=== PATIENT | female | born 1955 | race Two or more races ===

== ENCOUNTER 2020-09-02 09:59 | Outpatient (REF) | payer OTHER, SELFPAY ==
[2020-09-02 10:42] LABS: MANUAL DIFF FLAG NO
[2020-09-02 10:53] LABS: Basophils Absolute Auto 0.1 X10*3/uL (0.0-0.2); Basophils Percent Auto 1.1 % (0-2); Eosinophils Absolute Auto 0.3 X10*3/uL (0.0-0.4); Eosinophils Percent Auto 4.7 % (0-4); Hematocrit 35.1 % (37-47); Hemoglobin 11.2 g/dl (12.0-16.0); Imm Gran Abs Auto 0.01 X10*3/uL (0.00-0.03); Imm Gran Pct Auto 0.2 % (0.0-0.4); Lymphocytes Absolute Auto 1.6 X10*3/uL (1.2-4.9); Lymphocytes Percent Auto 26.4 % (20-40); Mean Corpuscular HGB Conc 31.9 g/dl (31.0-35.0); Mean Corpuscular Hemoglobin 25.9 pg (27.0-33.0); Mean Corpuscular Volume 81.1 fL (80-98); Monocytes Absolute Auto 0.5 X10*3/uL (0.1-1.2); Monocytes Percent Auto 7.5 % (2-11); Neutrophils Absolute Auto 3.7 X10*3/uL (2.0-8.3); Neutrophils Percent Auto 60.1 % (45-73); Platelet Count 267 X10*3/uL (160-400); Red Blood Count 4.33 X10*6/uL (4.20-5.50); Red Cell Distribution Width 13.5 % (11.0-16.0); White Blood Count 6.1 X10*3/uL (4.8-10.8)
[2020-09-02 11:01] LABS: Estimated Average Glucose 114 mg/dL; Hemoglobin A1c % 5.6 %
[2020-09-02 11:10] LABS: Alanine Aminotransferase 14 U/L (0-31); Albumin Level 4.1 g/dL (3.5-5.0); Alkaline Phosphatase 89 U/L (39-117); Anion Gap 10 (12-20); Aspartate Amino Transferase 18 U/L (5-31); Bilirubin Total 0.4 mg/dL (0.0-1.0); Blood Urea Nitrogen 17 mg/dL (9-16); Calcium 9.1 mg/dL (8.4-10.2); Carbon Dioxide 27 mmol/L (22-29); Chloride 100 mmol/L (96-108); Cholesterol 187 mg/dL; Estimated Glomerular Filt Rate 50; Glucose Fasting 94 mg/dL (60-99); HDL Cholesterol 65 mg/dL; LDL Cholesterol Calculated 100 mg/dl; Potassium 4.3 mmol/l (3.3-5.1); Sodium 133 mmol/L (135-145); Total Protein 7.2 g/dL (6.5-8.0); Triglycerides 114 mg/dL
[2020-09-02 12:28] LABS: Creatinine Urine 93.83 mg/dL; Microalbum/Creatinine Ratio Ur 5.3 ug/mg cr
== END 2020-09-02 10:00 | disposition home or self-care (01) ==
LOC: HO.LAB 09:59
PROVIDERS: PCP Internal Medicine; Visit Provider Internal Medicine
DX: E11.22 Type 2 diabetes mellitus with diabetic chronic kidney disease (principal); I12.9 Hypertensive chronic kidney disease with stage 1 through stage 4 chronic kidney disease, or unspecified chronic kidney disease; N18.30 Chronic kidney disease, stage 3 unspecified; E78.00 Pure hypercholesterolemia, unspecified; N30.00 Acute cystitis without hematuria
CPT/HCPCS: 36415; 80053; 80061; 82043; 83036; 85025

== ENCOUNTER 2021-01-29 12:37 | Outpatient (REF) | payer OTHER, SELFPAY ==
[2021-01-29 13:04] LABS: MANUAL DIFF FLAG NO
[2021-01-29 13:09] LABS: Basophils Absolute Auto 0.1 X10*3/uL (0.0-0.2); Basophils Percent Auto 1.2 % (0-2); Eosinophils Absolute Auto 0.2 X10*3/uL (0.0-0.4); Eosinophils Percent Auto 3.5 % (0-4); Hematocrit 36.7 % (37-47); Hemoglobin 11.6 g/dl (12.0-16.0); Imm Gran Abs Auto 0.02 X10*3/uL (0.00-0.03); Imm Gran Pct Auto 0.3 % (0.0-0.4); Lymphocytes Absolute Auto 1.7 X10*3/uL (1.2-4.9); Lymphocytes Percent Auto 25.3 % (20-40); Mean Corpuscular HGB Conc 31.6 g/dl (31.0-35.0); Mean Corpuscular Hemoglobin 26.1 pg (27.0-33.0); Mean Corpuscular Volume 82.7 fL (80-98); Mean Platelet Volume 10.4 fL (9.4-12.3); Monocytes Absolute Auto 0.6 X10*3/uL (0.1-1.2); Monocytes Percent Auto 8.1 % (2-11); Neutrophils Absolute Auto 4.2 X10*3/uL (2.0-8.3); Neutrophils Percent Auto 61.6 % (45-73); Platelet Count 325 X10*3/uL (160-400); Red Blood Count 4.44 X10*6/uL (4.20-5.50); Red Cell Distribution Width 13.3 % (11.0-16.0); White Blood Count 6.8 X10*3/uL (4.8-10.8)
[2021-01-29 13:15] LABS: Estimated Average Glucose 126 mg/dL
[2021-01-29 13:30] LABS: Alanine Aminotransferase 8 U/L (0-31); Albumin Level 4.3 g/dL (3.5-5.0); Alkaline Phosphatase 94 U/L (39-117); Anion Gap 10 (12-20); Aspartate Amino Transferase 16 U/L (5-31); Bilirubin Total 0.3 mg/dL (0.0-1.0); Blood Urea Nitrogen 14 mg/dL (9-16); Calcium 9.2 mg/dL (8.4-10.2); Carbon Dioxide 32 mmol/L (22-29); Chloride 100 mmol/L (96-108); Estimated Glomerular Filt Rate 53; Glucose Random 135 mg/dL (60-115); Potassium 4.3 mmol/L (3.3-5.1); Sodium 138 mmol/L (135-145); Total Protein 7.7 g/dL (6.5-8.0)
== END 2021-01-29 12:38 | disposition home or self-care (01) ==
LOC: HO.LAB 12:37
PROVIDERS: PCP Internal Medicine; Visit Provider Internal Medicine
DX: Z00.00 Encounter for general adult medical examination without abnormal findings (principal); E11.9 Type 2 diabetes mellitus without complications; E78.00 Pure hypercholesterolemia, unspecified; I10 Essential (primary) hypertension
CPT/HCPCS: 36415; 80053; 83036; 85025

== ENCOUNTER 2021-03-03 11:50 | Outpatient (REF) | payer OTHER, SELFPAY | END 2021-03-03 11:51 | disposition home or self-care (01) | LOC: HO.LAB 11:50 | PROVIDERS: Visit Provider Internal Medicine | DX: Z20.822 Contact with and (suspected) exposure to COVID-19 (principal) | CPT/HCPCS: C9803; U0003; U0005 ==

== ENCOUNTER 2021-03-16 15:36 | Outpatient (REF) | payer OTHER, SELFPAY | END 2021-03-16 15:37 | disposition home or self-care (01) | LOC: HO.LAB 15:36 | PROVIDERS: Visit Provider Internal Medicine | DX: Z20.822 Contact with and (suspected) exposure to COVID-19 (principal) | CPT/HCPCS: C9803; U0003; U0005 ==

== ENCOUNTER 2021-06-04 12:02 | Outpatient (REF) | payer OTHER, SELFPAY ==
[2021-06-04 13:21] LABS: Estimated Average Glucose 140 mg/dL; Hemoglobin A1C 151.2534 umol/L; Hemoglobin A1c % 6.5 %
[2021-06-04 13:31] LABS: Alanine Aminotransferase 13 U/L (0-31); Albumin Level 4.3 g/dL (3.5-5.0); Alkaline Phosphatase 96 U/L (39-117); Anion Gap 13 (12-20); Aspartate Amino Transferase 17 U/L (5-31); Bilirubin Total 0.4 mg/dL (0.0-1.0); Blood Urea Nitrogen 16 mg/dL (9-16); Calcium 9.6 mg/dL (8.4-10.2); Carbon Dioxide 27 mmol/L (22-29); Chloride 102 mmol/L (96-108); Estimated Glomerular Filt Rate 49; Glucose Random 110 mg/dL (60-115); Potassium 4.3 mmol/L (3.3-5.1); Sodium 138 mmol/L (135-145); Total Protein 7.8 g/dL (6.5-8.0)
== END 2021-06-04 12:03 | disposition home or self-care (01) ==
LOC: HO.LAB 12:02
PROVIDERS: PCP Internal Medicine; Visit Provider Internal Medicine
DX: E11.29 Type 2 diabetes mellitus with other diabetic kidney complication (principal); I10 Essential (primary) hypertension; E78.00 Pure hypercholesterolemia, unspecified; U07.1 COVID-19
CPT/HCPCS: 36415; 80053; 83036

== ENCOUNTER 2021-07-02 11:27 | Outpatient (REF) | payer OTHER, SELFPAY ==
--- NOTE | ~2021-07-02 | MM_ITS ---
EXAMINATION: MM SCREENING DIGITAL BREAST TOMOSYNTHESIS, BILATERAL CLINICAL INFORMATION: Screening. Asymptomatic. The lifetime risk of breast cancer based on the Tyrer-Cuzick Model is 6%. COMPARISON: Mammography: 10/10/2020, 11/16/2018, 10/24/2017 TECHNIQUE: Digital breast tomosynthesis is performed in both the craniocaudal and mediolateral oblique views along with computer-aided detection (CAD). Synthesized 2D images are generated from the tomosynthesis. Additional right MLO and bilateral CC views are provided. FINDINGS: The breasts are almost entirely fatty (ACR BI-RADS breast composition Category a). There are no significant masses, abnormal calcifications, or other abnormalities. Background stromal markings are similar to prior studies. The axilla and skin contours are unremarkable. MM/MM tomosynthesis screening BI IMPRESSION: No mammographic evidence of malignancy. ASSESSMENT: BI-RADS 1: Negative RECOMMENDATION: Routine annual mammography screening. This patient's information was entered into a reminder system with a target due date for their next mammogram.
== END 2021-07-02 11:28 | disposition home or self-care (01) ==
LOC: HO.MAMMO 11:27
PROVIDERS: Visit Provider Internal Medicine
DX: Z12.31 Encounter for screening mammogram for malignant neoplasm of breast (principal)
CPT/HCPCS: 77063; 77067

== ENCOUNTER 2021-08-18 12:26 | Outpatient (REF) | payer OTHER, SELFPAY ==
[2021-08-18 14:26] LABS: Estimated Average Glucose 148 mg/dL; Hemoglobin A1c % 6.8 %
[2021-08-18 14:38] LABS: Alanine Aminotransferase 10 U/L (0-31); Albumin Level 4.3 g/dL (3.5-5.0); Alkaline Phosphatase 90 U/L (39-117); Anion Gap 13 (12-20); Aspartate Amino Transferase 15 U/L (5-31); Bilirubin Total 0.3 mg/dL (0.0-1.0); Blood Urea Nitrogen 16 mg/dL (9-16); Calcium 9.2 mg/dL (8.4-10.2); Carbon Dioxide 25 mmol/L (22-29); Chloride 103 mmol/L (96-108); Cholesterol 201 mg/dL; Estimated Glomerular Filt Rate 52; Glucose Random 107 mg/dL (60-115); HDL Cholesterol 72 mg/dL; LDL Cholesterol Calculated 105 mg/dl; Potassium 4.2 mmol/L (3.3-5.1); Sodium 137 mmol/L (135-145); Total Protein 7.6 g/dL (6.5-8.0); Triglycerides 123 mg/dL
[2021-08-18 14:50] LABS: Creatinine Urine 117.87 mg/dL; Microalbum/Creatinine Ratio Ur 5.9 ug/mg cr
[2021-08-18 15:18] LABS: Carbamazepine Tegretol 6.2 mcg/mL (5.0-12.0)
== END 2021-08-18 12:27 | disposition home or self-care (01) ==
LOC: HO.LAB 12:26
PROVIDERS: PCP Internal Medicine; Visit Provider Internal Medicine
DX: E11.29 Type 2 diabetes mellitus with other diabetic kidney complication (principal); E78.00 Pure hypercholesterolemia, unspecified; I10 Essential (primary) hypertension; G50.0 Trigeminal neuralgia
CPT/HCPCS: 36415; 80053; 80061; 80156; 82043; 83036

== ENCOUNTER 2021-08-31 16:56 | Emergency (ER) | payer OTHER, SELFPAY ==
--- NOTE | ~2021-08-31 | XR_ITS ---
EXAMINATION: XR CHEST CLINICAL INFORMATION: SOB/cough COMPARISON: Chest 10/24/2018 TECHNIQUE: 2 views of the chest were obtained. FINDINGS: The lungs are well-expanded with patchy atelectasis in the lingula. Rest lungs are clear. The heart size is enlarged with normal pulmonary vascularity. No gross bony abnormality seen. XR/XR chest 2V IMPRESSION: Patchy atelectatic changes in the lingula. No acute consolidation seen.
[2021-08-31 17:13] VITALS: BP 137/83; PULSE 66; RESP 20; TEMP 36.1; O2SAT 98; BMI 38.4
[2021-08-31 17:38] LABS: COVID-19 Test Negative (Negative)
[2021-08-31 21:18] VITALS: BP 139/84; PULSE 68; RESP 16; TEMP 36.6; O2SAT 99
--- NOTE | 2021-08-31 21:24 | ED_ITS ---
HPI - Asthma General Chief Complaint: Asthma Stated Complaint: Asthma Time Seen by Provider: 08/31/21 21:24 Source: patient Mode of arrival: ambulatory Limitations: no limitations History of Present Illness HPI Narrative: Patient with history of asthma been wheezing coughing for last 4- 5 days getting worse using inhaler without much response no fever no chills patient has been vaccinated against COVID-19 Related Data Previous Rx's Medication Instructions Recorded folic acid 1 mg tablet 1 mg PO QAM #30 tab 03/17/21 hydroxychloroquine 200 mg tablet 200 mg PO BID #60 tab 06/09/21 albuterol sulfate 90 mcg/actuation 2 puff INHALATION Q4-6H PRN #8.5 g 08/31/21 aerosol inhaler (ProAir HFA) cefuroxime axetil 500 mg tablet 500 mg PO BID #20 tab 08/31/21 codeine 10 mg-guaifenesin 100 mg/5 10 ml PO Q4-6H PRN #237 ml 08/31/21 mL oral liquid doxycycline hyclate 100 mg tablet 100 mg PO BID #20 tab 08/31/21 prednisone 20 mg tablet 40 mg PO DAILY #10 tab 08/31/21 Allergies Allergy/AdvReac Type Severity Reaction Status Date / Time No Known Allergies Allergy Mild N/A Unverified 08/07/20 16:02 Review of Systems Review of Systems: Yes all other systems are reviewed and are negative [facility] Past Medical History Medical History Arthritis Asthma Diabetes HTN (hypertension) Social History Social History Advance Directives: No Advance Directives Information Provided: No Physical Exam Vital Signs: Vital Signs: Last Vital Signs Temp 98 F 08/31/21 21:18 Pulse 68 08/31/21 22:27 Resp 16 08/31/21 21:18 BP 139/84 08/31/21 21:18 Pulse Ox 99 08/31/21 21:18 Body Mass Index 38.4 Appearance: Alert. Oriented X3. No acute distress. Eyes: No pallor or icterus ENT: Pharynx normal. Oral Mucosa moist Neck: Normal inspection. Neck supple. CVS: Normal heart rate and rhythm. Pulses normal. Respiratory: No respiratory distress. Equal air entry bilateral, bilateral wheezing no crackles Abdomen: Soft and nontender. Bowel sounds are present, no mass palpable, Skin: Skin warm and dry. Normal skin color. Normal skin turgor. Extremities: No lower extremity edema. No calf tenderness Neuro: Oriented X 3. MDM - Asthma MDM Narrative Medical decision making narrative: Patient feeling much better after nebulizing treatment discharge patient home on prednisone doxycycline and Ceftin Lab Data Attestation: I reviewed the patient's lab results. Result diagrams: 08/31/21 21:53 08/31/21 21:53 Labs: Lab Results 08/31/21 08/31/21 08/31/21 Range/Units 17:19 21:53 21:53 WBC 6.5 (4.8-10.8) X10*3/uL RBC 4.19 L (4.20-5.50) X10*6/uL Hgb 10.9 L (12.0-16.0) g/dl Hct 33.3 L (37-47) % MCV 79.5 L (80-98) fL MCH 26.0 L (27.0-33.0) pg MCHC 32.7 (31.0-35.0) g/dl RDW 13.7 (11.0-16.0) % Plt Count 247 (160-400) X10*3/uL MPV 10.1 (9.4-12.3) fL Immature Gran % (Auto) 0.3 (0.0-0.4) % Neut % (Auto) 56.8 (45-73) % Lymph % (Auto) 30.3 (20-40) % Stan[place] % (Auto) 7.8 (2-11) % Eos % (Auto) 4.0 (0-4) % Baso % (Auto) 0.8 (0-2) % Lymph # (Auto) 2.0 (1.2-4.9) X10*3/uL Stanly # (Auto) 0.5 (0.1-1.2) X10*3/uL Eos # (Auto) 0.3 (0.0-0.4) X10*3/uL Baso # (Auto) 0.1 (0.0-0.2) X10*3/uL Abs Immat Gran (auto) 0.02 (0.00-0.03) X10*3/uL Absolute Neuts (auto) 3.7 (2.0-8.3) X10*3/uL Absolute Nucleated RBC 0.000 (0.0-0.012) X10*3/uL Nucleated RBC % (auto) 0.0 (0.0-0.2) /100WBC Sodium 136 (135-145) mmol/L Potassium 3.6 (3.3-5.1) mmol/L Chloride 100 (96-108) mmol/L Carbon Dioxide 27 (22-29) mmol/L Anion Gap 13 (12-20) BUN 12 (9-16) mg/dL Creatinine 0.89 (0.5-1.4) mg/dL Estim Creat Clear Calc 88.7 Estimated GFR > 60 Random Glucose 130 H (60-115) mg/dL Calcium 9.1 (8.4-10.2) mg/dL Total Bilirubin 0.5 (0.0-1.0) mg/dL AST 18 (5-31) U/L ALT 12 (0-31) U/L Alkaline Phosphatase 89 (39-117) U/L Total Protein 7.4 (6.5-8.0) g/dL Albumin 4.2 (3.5-5.0) g/dL COVID-19 (DAMIR) Negative (Negative) COVID-19 Clin Com See Note Discharge Plan Discharge Clinical Impression: Acute asthmatic bronchitis Patient Disposition: Home, Self-Care Instructions: Acute Bronchitis (ED) Additional Instructions: Continue inhaler take antibiotic as prescribed Take prednisone as prescribed Cough syrup as advised follow with PCP Continuar inhalador edy antibi?saadia seg?n lo prescrito [place] prednisona seg?n lo prescrito Jarabe para la tos maira se recomienda seguir con el PCP Prescriptions: New prednisone 20 mg tablet 40 mg PO DAILY Qty: 10 RF: 0 codeine-guaifenesin 10-100 mg/5 mL liquid 10 ml PO Q4-6H PRN (Reason: cough) Qty: 237 RF: 0 albuterol sulfate [ProAir HFA] 90 mcg/actuation HFA aerosol inhaler 2 puff inhalation Q4-6H PRN (Reason: Wheezing) Qty: 8.5 RF: 0 doxycycline hyclate 100 mg tablet 100 mg PO BID Qty: 20 RF: 0 cefuroxime axetil 500 mg tablet 500 mg PO BID Qty: 20 RF: 0 No Action folic acid 1 mg tablet 1 mg PO QAM Qty: 30 RF: 5 hydroxychloroquine 200 mg tablet 200 mg PO BID Qty: 60 RF: 5 Print Language: Latvian
[2021-08-31 21:58] LABS: MANUAL DIFF FLAG NO
[2021-08-31 21:59] LABS: Basophils Absolute Auto 0.1 X10*3/uL (0.0-0.2); Basophils Percent Auto 0.8 % (0-2); Eosinophils Absolute Auto 0.3 X10*3/uL (0.0-0.4); Hematocrit 33.3 % (37-47); Hemoglobin 10.9 g/dl (12.0-16.0); Imm Gran Abs Auto 0.02 X10*3/uL (0.00-0.03); Imm Gran Pct Auto 0.3 % (0.0-0.4); Lymphocytes Percent Auto 30.3 % (20-40); Mean Corpuscular HGB Conc 32.7 g/dl (31.0-35.0); Mean Corpuscular Volume 79.5 fL (80-98); Mean Platelet Volume 10.1 fL (9.4-12.3); Monocytes Absolute Auto 0.5 X10*3/uL (0.1-1.2); Monocytes Percent Auto 7.8 % (2-11); Neutrophils Absolute Auto 3.7 X10*3/uL (2.0-8.3); Neutrophils Percent Auto 56.8 % (45-73); Platelet Count 247 X10*3/uL (160-400); Red Blood Count 4.19 X10*6/uL (4.20-5.50); Red Cell Distribution Width 13.7 % (11.0-16.0); White Blood Count 6.5 X10*3/uL (4.8-10.8)
[2021-08-31 22:18] LABS: Alanine Aminotransferase 12 U/L (0-31); Albumin Level 4.2 g/dL (3.5-5.0); Alkaline Phosphatase 89 U/L (39-117); Anion Gap 13 (12-20); Aspartate Amino Transferase 18 U/L (5-31); Bilirubin Total 0.5 mg/dL (0.0-1.0); Blood Urea Nitrogen 12 mg/dL (9-16); Calcium 9.1 mg/dL (8.4-10.2); Carbon Dioxide 27 mmol/L (22-29); Chloride 100 mmol/L (96-108); Creatinine Clr Calc Pharmacy 88.7; Estimated Glomerular Filt Rate > 60; Glucose Random 130 mg/dL (60-115); Potassium 3.6 mmol/L (3.3-5.1); Sodium 136 mmol/L (135-145); Total Protein 7.4 g/dL (6.5-8.0)
[2021-08-31] MEDS: Albuterol Sulfate (0.083%) 2.5 MG/3 ML VIAL.NEB 5 MG INHALE (22:23)
[2021-08-31] MEDS: Albuterol/Iprat 2.5/0.5MG 3 ML AMPUL.NEB INHALE (22:23)
[2021-08-31 22:27] VITALS: PULSE 68; O2SAT 98
[2021-08-31] MEDS: Azithromycin 500 MG TABLET PO (22:44)
[2021-08-31] MEDS: dexAMETHasone 2 MG TABLET 10 MG PO (22:44)
[2021-08-31 23:26] VITALS: BP 142/85; PULSE 94; RESP 20; O2SAT 93
== END 2021-08-31 23:43 | disposition home or self-care (01) ==
PROVIDERS: Emergency Provider Internal Medicine; PCP Internal Medicine
DX: J45.909 Unspecified asthma, uncomplicated (principal); I10 Essential (primary) hypertension; E11.9 Type 2 diabetes mellitus without complications; Z20.822 Contact with and (suspected) exposure to COVID-19
CPT/HCPCS: 36415; 71046; 80053; 85025; 87635; 94640; 99284; J8540

== ENCOUNTER 2022-01-18 09:51 | Outpatient (REF) | payer OTHER, SELFPAY ==
[2022-01-18 11:04] LABS: Alanine Aminotransferase 13 U/L (0-31); Albumin Level 4.1 g/dL (3.5-5.0); Alkaline Phosphatase 88 U/L (39-117); Anion Gap 10 (12-20); Aspartate Amino Transferase 17 U/L (5-31); Bilirubin Total 0.3 mg/dL (0.0-1.0); Blood Urea Nitrogen 20 mg/dL (9-16); Carbon Dioxide 31 mmol/L (22-29); Chloride 104 mmol/L (96-108); Cholesterol 207 mg/dL; Estimated Average Glucose 157 mg/dL; Estimated Glomerular Filt Rate 43; Glucose Random 141 mg/dL (60-115); HDL Cholesterol 63 mg/dL; Hemoglobin A1c % 7.1 %; LDL Cholesterol Calculated 102 mg/dl; Potassium 4.2 mmol/L (3.3-5.1); Sodium 141 mmol/L (135-145); Total Protein 7.4 g/dL (6.5-8.0); Triglycerides 213 mg/dL
== END 2022-01-18 09:52 | disposition home or self-care (01) ==
LOC: HO.LAB 09:51
PROVIDERS: PCP Internal Medicine; Visit Provider Internal Medicine
DX: Z00.00 Encounter for general adult medical examination without abnormal findings (principal); E11.9 Type 2 diabetes mellitus without complications; E78.00 Pure hypercholesterolemia, unspecified; G47.33 Obstructive sleep apnea (adult) (pediatric)
CPT/HCPCS: 36415; 80053; 80061; 83036

== ENCOUNTER 2022-01-25 12:30 | Outpatient (REF) | payer OTHER, SELFPAY ==
--- NOTE | ~2022-01-25 | XR_ITS ---
EXAMINATION: XR KNEE, RIGHT XR KNEE, LEFT CLINICAL INFORMATION: M25.9 - Joint disorder, unspecified COMPARISON: Radiographs right knee 10/05/2011, radiographs left knee 03/24/2017 TECHNIQUE: Each knee is imaged in standing AP and lateral views. There are 2 views on each side. FINDINGS: Right: Normal bony mineralization. No acute or healing fracture, dislocation, destructive process. There is mild thickening suprapatellar bursa consistent with small effusion. Hoffa's fat pad appears normal. There is an old sclerotic bone island in the proximal tibia similar to prior exam 2010. 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 Mild spurring at quadriceps insertion patella. There is mild genu valgus similar to prior exam. No joint narrowing or erosive change or chondrocalcinosis. Left: Normal bony mineralization. No acute or healing fracture, dislocation, destructive process. No suprapatellar effusion. Hoffa's fat pad appears normal. 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 There is mild genu valgus. No joint narrowing or erosive change or chondrocalcinosis. There is ossification in region of the proximal medial collateral ligament measuring 0.4 cm thickness by 1.7 cm in length, new finding since 2017, and likely related to chronic injury proximal MCL. XR/XR knee RT 2V IMPRESSION: Right: -Mild genu valgus. No joint narrowing or erosive change. Trace suprapatellar fluid. -Probable bipartite patella, stable. Spurring quadriceps insertion patella. -Old bone island proximal tibia. Left: -Mild genu valgus. No joint narrowing or erosive change or effusion. -Bipartite patella, stable. Spurring quadriceps insertion patella. -New ossification in region of proximal MCL, likely related to remote injury.
--- NOTE | ~2022-01-25 | XR_ITS ---
EXAMINATION: XR KNEE, RIGHT XR KNEE, LEFT CLINICAL INFORMATION: M25.9 - Joint disorder, unspecified COMPARISON: Radiographs right knee 10/05/2011, radiographs left knee 03/24/2017 TECHNIQUE: Each knee is imaged in standing AP and lateral views. There are 2 views on each side. FINDINGS: Right: Normal bony mineralization. No acute or healing fracture, dislocation, destructive process. There is mild thickening suprapatellar bursa consistent with small effusion. Hoffa's fat pad appears normal. There is an old sclerotic bone island in the proximal tibia similar to prior exam 2010. 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 Mild spurring at quadriceps insertion patella. There is mild genu valgus similar to prior exam. No joint narrowing or erosive change or chondrocalcinosis. Left: Normal bony mineralization. No acute or healing fracture, dislocation, destructive process. No suprapatellar effusion. Hoffa's fat pad appears normal. 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 There is mild genu valgus. No joint narrowing or erosive change or chondrocalcinosis. There is ossification in region of the proximal medial collateral ligament measuring 0.4 cm thickness by 1.7 cm in length, new finding since 2017, and likely related to chronic injury proximal MCL. XR/XR knee LT 2V IMPRESSION: Right: -Mild genu valgus. No joint narrowing or erosive change. Trace suprapatellar fluid. -Probable bipartite patella, stable. Spurring quadriceps insertion patella. -Old bone island proximal tibia. Left: -Mild genu valgus. No joint narrowing or erosive change or effusion. -Bipartite patella, stable. Spurring quadriceps insertion patella. -New ossification in region of proximal MCL, likely related to remote injury.
--- NOTE | ~2022-01-25 | XR_ITS ---
EXAMINATION: XR HAND, RIGHT XR HAND, LEFT CLINICAL INFORMATION: M25.9 - Joint disorder, unspecified COMPARISON: Radiographs bilateral hands 07/06/2018. TECHNIQUE: Each hand is imaged in 3 views. There are total of 6 views. FINDINGS: Right: No periarticular demineralization, fracture, dislocation, destructive process. The ulnar variance is neutral. The pronator quadratus fat pad appears normal. There is subtle subchondral cyst proximal medial carpal lunate, stable from prior radiographs 2018. There is likely some trace chondrocalcinosis distal lateral aspect triquetrum articular cartilage, also stable. No joint narrowing or erosive change. The MCP and interphalangeal joints show no erosive changes. There are some mild degenerative changes involving the DIP joints. Left: No periarticular demineralization, fracture, dislocation, destructive process. The ulnar variance is neutral. There is corticated ossicle at tip ulnar styloid again seen. The carpus shows no joint narrowing or erosive change or chondrocalcinosis. The MCP and interphalangeal joints show no erosive changes. There is minor spurring first lateral MCP joint. Some borderline degenerative changes DIP joints. XR/XR hand LT 2V IMPRESSION: Right: -No acute abnormality from prior exam 2018. -Subchondral cyst proximal lunate. Trace chondrocalcinosis lateral triquetrum. -No interval focal joint narrowing or erosive change. -Mild degenerative changes DIP joints. Left: -No acute abnormality from prior exam 2018 -Borderline degenerative change PIP joints. Mild spurring lateral first MTP. No erosive change.
--- NOTE | ~2022-01-25 | XR_ITS ---
EXAMINATION: XR HAND, RIGHT XR HAND, LEFT CLINICAL INFORMATION: M25.9 - Joint disorder, unspecified COMPARISON: Radiographs bilateral hands 07/06/2018. TECHNIQUE: Each hand is imaged in 3 views. There are total of 6 views. FINDINGS: Right: No periarticular demineralization, fracture, dislocation, destructive process. The ulnar variance is neutral. The pronator quadratus fat pad appears normal. There is subtle subchondral cyst proximal medial carpal lunate, stable from prior radiographs 2018. There is likely some trace chondrocalcinosis distal lateral aspect triquetrum articular cartilage, also stable. No joint narrowing or erosive change. The MCP and interphalangeal joints show no erosive changes. There are some mild degenerative changes involving the DIP joints. Left: No periarticular demineralization, fracture, dislocation, destructive process. The ulnar variance is neutral. There is corticated ossicle at tip ulnar styloid again seen. The carpus shows no joint narrowing or erosive change or chondrocalcinosis. The MCP and interphalangeal joints show no erosive changes. There is minor spurring first lateral MCP joint. Some borderline degenerative changes DIP joints. XR/XR hand RT 2V IMPRESSION: Right: -No acute abnormality from prior exam 2018. -Subchondral cyst proximal lunate. Trace chondrocalcinosis lateral triquetrum. -No interval focal joint narrowing or erosive change. -Mild degenerative changes DIP joints. Left: -No acute abnormality from prior exam 2018 -Borderline degenerative change PIP joints. Mild spurring lateral first MTP. No erosive change.
[2022-01-25 15:44] LABS: C Reactive Protein 1.45 mg/dL (< or = 0.50)
[2022-01-25 16:11] LABS: Erythrocyte Sedimentation Rate 34 MM/HR (0-20)
[2022-01-27 16:46] LABS: Cyclic Citrullinated Peptide <16 UNITS
== END 2022-01-25 12:31 | disposition home or self-care (01) ==
LOC: HO.XRAY 12:30
PROVIDERS: PCP Internal Medicine; Visit Provider Internal Medicine Rheumatology
DX: M17.10 Unilateral primary osteoarthritis, unspecified knee (principal); M65.4 Radial styloid tenosynovitis [de Quervain]; M25.9 Joint disorder, unspecified; M79.7 Fibromyalgia; Z79.899 Other long term (current) drug therapy
CPT/HCPCS: 36415; 73120; 73560; 85652; 86140; 86200; 99212

== ENCOUNTER 2022-02-16 07:09 | Outpatient (REF) | payer OTHER, SELFPAY ==
--- NOTE | ~2022-02-16 | XR_ITS ---
EXAMINATION: XR WRIST, RIGHT CLINICAL INFORMATION: Pain COMPARISON: Previous right hand x-ray 01/25/2022 TECHNIQUE: PA, lateral, and oblique views of the right wrist. FINDINGS: Bone alignment is normal. No fracture or dislocation is seen. There is a small cyst in the lunate that is unchanged. Joint spaces are normal. Soft tissues are normal. XR/XR wrist RT min 3V IMPRESSION: Small cyst in the lunate.
== END 2022-02-16 07:10 | disposition home or self-care (01) ==
LOC: HO.HOSX 07:09
PROVIDERS: Visit Provider Physician Assistant
DX: M65.4 Radial styloid tenosynovitis [de Quervain] (principal)
CPT/HCPCS: 73110; 99212

== ENCOUNTER → 2022-05-10 12:31 | Outpatient (BNVA) | payer OTHER, SELFPAY | PROVIDERS: PCP Internal Medicine; Visit Provider Physician Assistant | DX: M65.4 Radial styloid tenosynovitis [de Quervain] (principal) | CPT/HCPCS: 99212 ==

== ENCOUNTER → 2022-07-12 12:34 | Outpatient (BNVA) | payer OTHER, SELFPAY | PROVIDERS: PCP Internal Medicine; Visit Provider Internal Medicine Rheumatology | DX: M25.9 Joint disorder, unspecified (principal); M17.10 Unilateral primary osteoarthritis, unspecified knee; M65.4 Radial styloid tenosynovitis [de Quervain]; M79.7 Fibromyalgia | CPT/HCPCS: 99212; J1100 ==

== ENCOUNTER → 2022-07-13 11:28 | Outpatient (BNVA) | payer OTHER, SELFPAY | PROVIDERS: PCP Internal Medicine; Visit Provider Orthopaedic Surgery | DX: M65.4 Radial styloid tenosynovitis [de Quervain] (principal) | CPT/HCPCS: 99202 ==

== ENCOUNTER 2022-07-28 14:40 | Outpatient (REF) | payer OTHER, SELFPAY ==
[2022-07-28 15:47] LABS: Anion Gap 17 (12-20); Blood Urea Nitrogen 14 mg/dL (9-16); Calcium 9.3 mg/dL (8.4-10.2); Carbon Dioxide 25 mmol/L (22-29); Chloride 101 mmol/L (96-108); Estimated Glomerular Filt Rate 56; Potassium 4.5 mmol/L (3.3-5.1); Sodium 138 mmol/L (135-145)
[2022-07-28 15:50] LABS: Creatinine Urine 157.02 mg/dL; Protein/Creatinine Ratio, Ur 0.11 (<0.2); Total Protein Urine Random 17 mg/dL (<12)
== END 2022-07-28 14:41 | disposition home or self-care (01) ==
LOC: HO.LAB 14:40
PROVIDERS: PCP Internal Medicine; Visit Provider Internal Medicine Nephrology
DX: I12.9 Hypertensive chronic kidney disease with stage 1 through stage 4 chronic kidney disease, or unspecified chronic kidney disease (principal); N18.31 Chronic kidney disease, stage 3a
CPT/HCPCS: 36415; 80051; 82310; 82565; 84156; 84520

== ENCOUNTER 2022-09-01 12:28 | Outpatient (REF) | payer MEDICARE, MEDICAID, SELFPAY ==
[2022-09-01 14:11] LABS: Estimated Average Glucose 160 mg/dL; Hemoglobin A1c % 7.2 %
[2022-09-01 14:13] LABS: Alanine Aminotransferase 12 U/L (0-31); Albumin Level 4.3 g/dL (3.5-5.0); Alkaline Phosphatase 95 U/L (39-117); Anion Gap 15 (12-20); Aspartate Amino Transferase 16 U/L (5-31); Bilirubin Total 0.2 mg/dL (0.0-1.0); Blood Urea Nitrogen 19 mg/dL (9-16); Calcium 9.3 mg/dL (8.4-10.2); Carbon Dioxide 26 mmol/L (22-29); Chloride 104 mmol/L (96-108); Estimated Glomerular Filt Rate 44; Glucose Random 162 mg/dL (60-115); Potassium 3.9 mmol/L (3.3-5.1); Sodium 141 mmol/L (135-145); Total Protein 7.5 g/dL (6.5-8.0)
== END 2022-09-01 12:29 | disposition home or self-care (01) ==
LOC: HO.LAB 12:28
PROVIDERS: PCP Internal Medicine; Visit Provider Internal Medicine
DX: M65.4 Radial styloid tenosynovitis [de Quervain] (principal); E11.9 Type 2 diabetes mellitus without complications; E78.00 Pure hypercholesterolemia, unspecified; R07.89 Other chest pain
CPT/HCPCS: 36415; 80053; 83036

== ENCOUNTER 2022-09-02 11:39 | Outpatient (REF) | payer MEDICARE, MEDICAID, SELFPAY ==
--- NOTE | 2022-09-02 11:01 | EMG_ITS ---
Left median and ulnar motor and sensory studies were performed. Left radial and median and lateral antecubital sensory studies were performed and radial motor study was performed. Paraspinal muscles were tested with a needle. IMPRESSION: 1. Mild left median neuropathy across carpal tunnel. 2. Mild left ulnar neuropathy across cubital tunnel. MD STEFFEN Brown/TIFFANY / [phone]
== END 2022-09-02 11:40 | disposition home or self-care (01) ==
LOC: HO.NEURO 11:39
PROVIDERS: Visit Provider Physician Assistant
DX: G56.23 Lesion of ulnar nerve, bilateral upper limbs (principal); M65.4 Radial styloid tenosynovitis [de Quervain]
CPT/HCPCS: 95886; 95910

== ENCOUNTER 2022-10-06 12:28 | Outpatient (REF) | payer OTHER, SELFPAY ==
--- NOTE | ~2022-10-06 | MM_ITS ---
EXAMINATION: MM SCREENING DIGITAL BREAST TOMOSYNTHESIS, BILATERAL CLINICAL INFORMATION: Screening. Asymptomatic. The lifetime risk of breast cancer based on the Tyrer-Cuzick Model is 4%. COMPARISON: Mammography: 07/02/2021, 01/01/2020, 11/16/2018 TECHNIQUE: Digital breast tomosynthesis is performed in both the craniocaudal and mediolateral oblique views along with computer-aided detection (CAD). Synthesized 2D images are generated from the tomosynthesis. FINDINGS: The breasts are almost entirely fatty (ACR BI-RADS breast composition Category a). There are no significant masses, abnormal calcifications, or other abnormalities. Background stromal markings are normal. There is no interval mass or architectural abnormality. The axilla and skin contours are unremarkable. No significant changes. MM/MM tomosynthesis screening BI IMPRESSION: No mammographic evidence of malignancy. ASSESSMENT: BI-RADS 1: Negative RECOMMENDATION: Routine annual mammography screening. This patient's information was entered into a reminder system with a target due date for their next mammogram.
== END 2022-10-06 12:29 | disposition home or self-care (01) ==
LOC: HO.MAMMO 12:28
PROVIDERS: PCP Internal Medicine; Visit Provider Internal Medicine
DX: Z12.31 Encounter for screening mammogram for malignant neoplasm of breast (principal)
CPT/HCPCS: 77063; 77067

== ENCOUNTER → 2022-10-12 11:32 | Outpatient (BNVA) | payer OTHER, SELFPAY | PROVIDERS: PCP Internal Medicine; Visit Provider Orthopaedic Surgery | DX: G56.02 Carpal tunnel syndrome, left upper limb (principal); G56.22 Lesion of ulnar nerve, left upper limb; M65.4 Radial styloid tenosynovitis [de Quervain] | CPT/HCPCS: 99212 ==

== ENCOUNTER → 2022-11-24 10:30 | Outpatient (BNVA) | payer OTHER, SELFPAY | PROVIDERS: Visit Provider Orthopaedic Surgery | DX: G56.02 Carpal tunnel syndrome, left upper limb (principal); G56.22 Lesion of ulnar nerve, left upper limb; M65.4 Radial styloid tenosynovitis [de Quervain] | CPT/HCPCS: 99212 ==

== ENCOUNTER 2022-11-26 08:43 | Day surgery (SDC) | payer OTHER, SELFPAY ==
[2022-11-23 09:05] VITALS: BMI 29.9
--- NOTE | 2022-11-25 09:38 | HO.ANESPROP2 ---
Documented by User: Melva Kelley NP 11/25/22 09:46 HPI - Anesthesia Eval Consult details Narrative: 67yo F for Left Carpal Tunnel Release, Cubital Tunnel Release vs transposition, Dorsal Compartment Release Stable at 08/2022 cardiac visit [facility] Active Problems Active Problems: All Active Problems (Updated 11/23/22 @ 09:13 by Jade Castellano RN) Multiple joint complaints (Acute) De Quervain's disease (radial styloid tenosynovitis) (Acute) Carpal tunnel syndrome on both sides (Acute) Cubital tunnel syndrome of both upper extremities (Acute) De Quervain's tenosynovitis, left (Acute) Carpal tunnel syndrome of left wrist (Acute) Cubital tunnel syndrome on left (Acute) Fibromyalgia (Acute) Osteoarthritis of knee (Acute) Past Medical History Medical History Angina pectoris Aortic dilatation Arthritis Asthma Chronic renal insufficiency Depression Diabetes Elevated cholesterol Fibromyalgia HTN (hypertension) Osteoarthritis of knee Sleep apnea Trigeminal neuralgia Surgical History Surgical History H/O colonoscopy History of pubovaginal sling Hx of cardiac catheterization Social History Social History Alcohol intake: former Year quit: 2007 Patient Tobacco Use Status: Former Tobacco user Quit Date: 2007 Use of substances other than those prescribed or required for medical reasons: No Are you DNR?: No Advance Directives: No Advance Directives Information Provided: Yes Meds Allergies Allergy/AdvReac Type Severity Reaction Status Date / Time NILSA Inhibitors AdvReac Intermediate Cough Verified 11/24/22 10:58 metformin AdvReac Intermediate Abdominal Verified 11/24/22 10:58 Pain Home Medications Medication Instructions Recorded Confirmed Last Taken Type acetaminophen 650 mg 650 mg PO Q8H PRN Pain 01/25/22 11/23/22 Unknown History tablet,extended release (Arthritis Pain Relief (acetaminophen) ER) albuterol sulfate 90 mcg/actuation 2 puff inhalation Q6H PRN Wheezing 01/25/22 11/23/22 Unknown History aerosol inhaler (ProAir HFA) ascorbate calcium (vitamin C) 500 500 mg PO DAILY 01/25/22 11/23/22 Unknown History mg tablet aspirin 81 mg tablet,delayed 81 mg PO DAILY 01/25/22 11/23/22 Unknown History release (Adult Low Dose Aspirin) carbamazepine 200 mg 200 mg PO BID 01/25/22 11/23/22 Unknown History capsule,extended release [id number] cetirizine 10 mg tablet (All Day 10 mg PO DAILY 01/25/22 11/23/22 Unknown History Allergy (cetirizine)) duloxetine 60 mg capsule,delayed 60 mg PO DAILY 01/25/22 11/23/22 Unknown History release fluticasone propionate 110 2 puff inhalation BID 01/25/22 11/23/22 Unknown History mcg/actuation HFA aerosol inhaler (Flovent HFA) fluticasone propionate 50 1 spray intranasal DAILY 01/25/22 11/23/22 Unknown History mcg/actuation nasal spray,suspension (Flonase Allergy Relief) gabapentin 300 mg capsule 300 mg PO TID 01/25/22 11/23/22 Unknown History hydrochlorothiazide 25 mg tablet 25 mg PO DAILY 01/25/22 11/23/22 Unknown History ibuprofen 600 mg tablet 600 mg PO TID PRN Pain 01/25/22 11/23/22 Unknown History ketotifen fumarate 0.025 % (0.035 1 drp ophthalmic (eye) BID 01/25/22 11/23/22 Unknown History %) eye drops loratadine 10 mg tablet (Allergy 10 mg PO DAILY 01/25/22 11/23/22 Unknown History Relief (loratadine)) lorazepam 1 mg tablet 1 mg PO BEDTIME 01/25/22 11/23/22 Unknown History losartan 100 mg tablet 100 mg PO DAILY 01/25/22 11/23/22 Unknown History metoprolol succinate 200 mg 200 mg PO DAILY 01/25/22 11/23/22 Unknown History tablet,extended release 24 hr omeprazole 40 mg capsule,delayed 40 mg PO DAILY 01/25/22 11/23/22 Unknown History release pyridoxine (vitamin B6) 50 mg 50 mg PO DAILY 01/25/22 11/23/22 Unknown History tablet rosuvastatin 20 mg tablet (Crestor) 20 mg PO DAILY 01/25/22 11/23/22 Unknown History sennosides 8.6 mg-docusate sodium 2 tab-cap PO BEDTIME 01/25/22 11/23/22 Unknown History 50 mg tablet (Senexon-S) tolterodine 4 mg capsule,extended 4 mg PO DAILY 01/25/22 11/23/22 Unknown History release 24 hr (Detrol LA) trazodone 50 mg tablet 50 mg PO BEDTIME 01/25/22 11/23/22 Unknown History triamcinolone acetonide 0.5 % 1 appl topical BID 01/25/22 11/23/22 Unknown History topical cream triamcinolone acetonide 55 mcg 1 spray intranasal DAILY 01/25/22 07/12/22 Unknown History nasal spray aerosol (Nasacort) zinc acetate 50 mg (zinc) capsule 50 mg PO TID 01/25/22 11/23/22 Unknown History folic acid 1 mg tablet 1 mg PO QAM 07/12/22 11/23/22 Unknown History metformin 750 mg tablet,extended 750 mg PO BID 07/12/22 11/23/22 Unknown History release 24 hr Exam Exam Date and Time: November 25, 2022 0938 Height,Weight and Vital Signs: Height 5 ft 9 in Weight 92.079 kg Pertinent Lab Results Pertinent Lab Results: Laboratory Tests 08/31/21 09/01/22 21:53 12:46 WBC 6.5 Hgb 10.9 L Hct 33.3 L Plt Count 247 Sodium 141 Potassium 3.9 Chloride 104 Carbon Dioxide 26 BUN 19 H Creatinine 1.23 Narrative Narrative: ECHO 10/2021 1. Nml LV function 2. Overall LV sys function is nml with EF 60-65% 3. Diastolic filling pattern is nml 4. Aortic sclerosis without stenosis 5. No change c/w 07/2020 Assessment and Plan Assessment Anesthesia Assessment: Chart Reviewed Documented by User: Samia Reeves MD 11/26/22 10:00 [facility] Past Medical History Medical History Angina pectoris Aortic dilatation Arthritis Asthma Chronic renal insufficiency Depression Diabetes Elevated cholesterol Fibromyalgia HTN (hypertension) Osteoarthritis of knee Sleep apnea Trigeminal neuralgia Functional capacity: independent ambulation Patient : No Family History Family history of problems with anesthesia: No Surgical History Surgical History H/O colonoscopy History of pubovaginal sling Hx of cardiac catheterization History of Problems with Anesthesia: No Social History Social History Alcohol intake: former Year quit: 2007 Patient Tobacco Use Status: Former Tobacco user Quit Date: 2007 Use of substances other than those prescribed or required for medical reasons: No Are you DNR?: No Advance Directives: No Advance Directives Information Provided: Yes Meds Allergies Allergy/AdvReac Type Severity Reaction Status Date / Time NILSA Inhibitors AdvReac Intermediate Cough Verified 11/24/22 10:58 metformin AdvReac Intermediate Abdominal Verified 11/24/22 10:58 Pain Home Medications Medication Instructions Recorded Confirmed Last Taken Type acetaminophen 650 mg 650 mg PO Q8H PRN Pain 01/25/22 11/23/22 Unknown History tablet,extended release (Arthritis Pain Relief (acetaminophen) ER) albuterol sulfate 90 mcg/actuation 2 puff inhalation Q6H PRN Wheezing 01/25/22 11/23/22 Unknown History aerosol inhaler (ProAir HFA) ascorbate calcium (vitamin C) 500 500 mg PO DAILY 01/25/22 11/23/22 Unknown History mg tablet aspirin 81 mg tablet,delayed 81 mg PO DAILY 01/25/22 11/23/22 Unknown History release (Adult Low Dose Aspirin) carbamazepine 200 mg 200 mg PO BID 01/25/22 11/23/22 Unknown History capsule,extended release [id number] cetirizine 10 mg tablet (All Day 10 mg PO DAILY 01/25/22 11/23/22 Unknown History Allergy (cetirizine)) duloxetine 60 mg capsule,delayed 60 mg PO DAILY 01/25/22 11/23/22 Unknown History release fluticasone propionate 110 2 puff inhalation BID 01/25/22 11/23/22 Unknown History mcg/actuation HFA aerosol inhaler (Flovent HFA) fluticasone propionate 50 1 spray intranasal DAILY 01/25/22 11/23/22 Unknown History mcg/actuation nasal spray,suspension (Flonase Allergy Relief) gabapentin 300 mg capsule 300 mg PO TID 01/25/22 11/23/22 Unknown History hydrochlorothiazide 25 mg tablet 25 mg PO DAILY 01/25/22 11/23/22 Unknown History ibuprofen 600 mg tablet 600 mg PO TID PRN Pain 01/25/22 11/23/22 Unknown History ketotifen fumarate 0.025 % (0.035 1 drp ophthalmic (eye) BID 01/25/22 11/23/22 Unknown History %) eye drops loratadine 10 mg tablet (Allergy 10 mg PO DAILY 01/25/22 11/23/22 Unknown History Relief (loratadine)) lorazepam 1 mg tablet 1 mg PO BEDTIME 01/25/22 11/23/22 Unknown History losartan 100 mg tablet 100 mg PO DAILY 01/25/22 11/23/22 Unknown History metoprolol succinate 200 mg 200 mg PO DAILY 01/25/22 11/23/22 Unknown History tablet,extended release 24 hr omeprazole 40 mg capsule,delayed 40 mg PO DAILY 01/25/22 11/23/22 Unknown History release pyridoxine (vitamin B6) 50 mg 50 mg PO DAILY 01/25/22 11/23/22 Unknown History tablet rosuvastatin 20 mg tablet (Crestor) 20 mg PO DAILY 01/25/22 11/23/22 Unknown History sennosides 8.6 mg-docusate sodium 2 tab-cap PO BEDTIME 01/25/22 11/23/22 Unknown History 50 mg tablet (Senexon-S) tolterodine 4 mg capsule,extended 4 mg PO DAILY 01/25/22 11/23/22 Unknown History release 24 hr (Detrol LA) trazodone 50 mg tablet 50 mg PO BEDTIME 01/25/22 11/23/22 Unknown History triamcinolone acetonide 0.5 % 1 appl topical BID 01/25/22 11/23/22 Unknown History topical cream triamcinolone acetonide 55 mcg 1 spray intranasal DAILY 01/25/22 07/12/22 Unknown History nasal spray aerosol (Nasacort) zinc acetate 50 mg (zinc) capsule 50 mg PO TID 01/25/22 11/23/22 Unknown History folic acid 1 mg tablet 1 mg PO QAM 07/12/22 11/23/22 Unknown History metformin 750 mg tablet,extended 750 mg PO BID 07/12/22 11/23/22 Unknown History release 24 hr Exam Airway Mallampati Class: II TM Dist: >3cm Neck ROM: Full Lungs: RRR Other: CTA Assessment and Plan Final Anesthetic Review Family History of Problems with Anesthesia: No History of Problems with Anesthesia: No Anesthetic Plan Anesthetic Plan: GA Disposition: Standard PACU
[2022-11-26] VITALS (7 sets, daily range): BP systolic 104–137; BP diastolic 50–78; PULSE 77–86; RESP 12–20; TEMP 36.1–36.5; O2SAT 92–100
--- NOTE | 2022-11-26 10:01 | P.CONAN_ITS ---
[facility] Active Problems Active Problems: All Active Problems (Updated 11/23/22 @ 09:13 by Jade Castellano RN) Multiple joint complaints (Acute) De Quervain's disease (radial styloid tenosynovitis) (Acute) Carpal tunnel syndrome on both sides (Acute) Cubital tunnel syndrome of both upper extremities (Acute) De Quervain's tenosynovitis, left (Acute) Carpal tunnel syndrome of left wrist (Acute) Cubital tunnel syndrome on left (Acute) Fibromyalgia (Acute) Osteoarthritis of knee (Acute) Past Medical History Medical History Angina pectoris Aortic dilatation Arthritis Asthma Chronic renal insufficiency Depression Diabetes Elevated cholesterol Fibromyalgia HTN (hypertension) Osteoarthritis of knee Sleep apnea Trigeminal neuralgia Functional capacity: independent ambulation Family History Family history of problems with anesthesia: No Surgical History Surgical History H/O colonoscopy History of pubovaginal sling Hx of cardiac catheterization History of Problems with Anesthesia: No Social History Social History Alcohol intake: former Year quit: 2007 Patient Tobacco Use Status: Former Tobacco user Quit Date: 2007 Use of substances other than those prescribed or required for medical reasons: No Are you DNR?: No Advance Directives: No Advance Directives Information Provided: Yes Patient : No Meds Allergies Allergy/AdvReac Type Severity Reaction Status Date / Time NILSA Inhibitors AdvReac Intermediate Cough Verified 11/24/22 10:58 metformin AdvReac Intermediate Abdominal Verified 11/24/22 10:58 Pain Active Medications: Current Medications Albuterol Sulfate (Albuterol Sulfate (0.083%) 2.5 Mg/3 Ml Vial.Neb) 2.5 mg INHALE ONCE PRN PRN Reason: Shortness of Breath/Wheezing Lactated Ringer's (Lr) 1,000 mls @ 100 mls/hr IVCONT .Q10H [facility] Home Medications Medication Instructions Recorded Confirmed Last Taken Type acetaminophen 650 mg 650 mg PO Q8H PRN Pain 01/25/22 11/23/22 Unknown History tablet,extended release (Arthritis Pain Relief (acetaminophen) ER) albuterol sulfate 90 mcg/actuation 2 puff inhalation Q6H PRN Wheezing 01/25/22 11/23/22 Unknown History aerosol inhaler (ProAir HFA) ascorbate calcium (vitamin C) 500 500 mg PO DAILY 01/25/22 11/23/22 Unknown History mg tablet aspirin 81 mg tablet,delayed 81 mg PO DAILY 01/25/22 11/23/22 Unknown History release (Adult Low Dose Aspirin) carbamazepine 200 mg 200 mg PO BID 01/25/22 11/23/22 Unknown History capsule,extended release [id number] cetirizine 10 mg tablet (All Day 10 mg PO DAILY 01/25/22 11/23/22 Unknown History Allergy (cetirizine)) duloxetine 60 mg capsule,delayed 60 mg PO DAILY 01/25/22 11/23/22 Unknown History release fluticasone propionate 110 2 puff inhalation BID 01/25/22 11/23/22 Unknown History mcg/actuation HFA aerosol inhaler (Flovent HFA) fluticasone propionate 50 1 spray intranasal DAILY 01/25/22 11/23/22 Unknown History mcg/actuation nasal spray,suspension (Flonase Allergy Relief) gabapentin 300 mg capsule 300 mg PO TID 01/25/22 11/23/22 Unknown History hydrochlorothiazide 25 mg tablet 25 mg PO DAILY 01/25/22 11/23/22 Unknown History ibuprofen 600 mg tablet 600 mg PO TID PRN Pain 01/25/22 11/23/22 Unknown History ketotifen fumarate 0.025 % (0.035 1 drp ophthalmic (eye) BID 01/25/22 11/23/22 Unknown History %) eye drops loratadine 10 mg tablet (Allergy 10 mg PO DAILY 01/25/22 11/23/22 Unknown History Relief (loratadine)) lorazepam 1 mg tablet 1 mg PO BEDTIME 01/25/22 11/23/22 Unknown History losartan 100 mg tablet 100 mg PO DAILY 01/25/22 11/23/22 Unknown History metoprolol succinate 200 mg 200 mg PO DAILY 01/25/22 11/23/22 Unknown History tablet,extended release 24 hr omeprazole 40 mg capsule,delayed 40 mg PO DAILY 01/25/22 11/23/22 Unknown History release pyridoxine (vitamin B6) 50 mg 50 mg PO DAILY 01/25/22 11/23/22 Unknown History tablet rosuvastatin 20 mg tablet (Crestor) 20 mg PO DAILY 01/25/22 11/23/22 Unknown History sennosides 8.6 mg-docusate sodium 2 tab-cap PO BEDTIME 01/25/22 11/23/22 Unknown History 50 mg tablet (Senexon-S) tolterodine 4 mg capsule,extended 4 mg PO DAILY 01/25/22 11/23/22 Unknown History release 24 hr (Detrol LA) trazodone 50 mg tablet 50 mg PO BEDTIME 01/25/22 11/23/22 Unknown History triamcinolone acetonide 0.5 % 1 appl topical BID 01/25/22 11/23/22 Unknown History topical cream triamcinolone acetonide 55 mcg 1 spray intranasal DAILY 01/25/22 07/12/22 Unknown History nasal spray aerosol (Nasacort) zinc acetate 50 mg (zinc) capsule 50 mg PO TID 01/25/22 11/23/22 Unknown History folic acid 1 mg tablet 1 mg PO QAM 07/12/22 11/23/22 Unknown History metformin 750 mg tablet,extended 750 mg PO BID 07/12/22 11/23/22 Unknown History release 24 hr Exam Exam Date and Time: November 26, 2022 1001 Height,Weight and Vital Signs: Height 5 ft 9 in Weight 92.079 kg Assessment and Plan Final Anesthetic Review Family History of Problems with Anesthesia: No History of Problems with Anesthesia: No ASA Class: III Final Preanesthetic Review: No Changes in Pt Med Stat, Meds/Allgs Chart Reviewed, Consent Obtained/Reviewed and Anes Risks/Benef Reviewed Patient Risk: Intermediate Procedure Risk: Low Anesthetic Plan Anesthetic Plan: GA Disposition: Standard PACU
[2022-11-26 10:41] LABS: Glucose, Whole Blood 155 mg/dL (60-115)
--- NOTE | 2022-11-26 12:35 | P.OP_ITS ---
Operative Note Operative Note Date of Service: 11/26/22 Narrative: Operative Note Narrative: Preop diagnosis: 1. Left Cubital tunnel syndrome 2. Left carpal tunnel syndrome 3. Left de Quervain tenosynovitis Postop diagnosis: Same Procedure: 1. Left Cubital Tunnel Release 2. Left carpal tunnel release 3. The left 1st dorsal compartment release Surgeon: Jazlyn Christian MD Anesthesia: General Anesthesia Findings: Thickening and fibrosis about the ulnar nerve at the cubital tunnel. Thickening over the 1st dorsal compartment. Implants: none Tourniquet time: 53 minutes EBL: 5.0 ml Specimen: none Drains: None Complications: None Disposition: Brought to the recovery room in stable condition Plan: Follow-up in 10-14 days for wound check, and suture removal Indications: The patient is a 67 years old with left cubital tunnel syndrome, left carpal tunnel syndrome, and left de Quervain tenosynovitis which has been unresponsive to non operative management. . The risks and benefits of operative treatment, including but not limited to risk of damage to blood vessels, nerves, tendons, infection, recurrence, persistent pain or numbness, incomplete resolution of preoperative symptoms, or need for further surgery were discussed with the patient and they wished to proceed with surgery. Procedure: Once consent was obtained patient was brought back to the operating suite and placed in the operating table in a supine position. Perioperative antibiotics and anesthesia was administered by the anesthesia team. The limb was prepped and draped in a standard surgical fashion, and a sterile tourniquet applied to the proximal aspect of the left upper extremity. The limb was elevated exsanguinated with Esmarch bandage and the tourniquet inflated to 250 mm of mercury for a total tourniquet time of 53 minutes. Once assured that we had a good block, a 2.0 cm longitudinal incision was made centered over the left carpal tunnel. The incision was made through the skin to the subcutaneous tissues using a #15 blade. Dissection was made down to the level of the transverse carpal ligament with care being taken to protect the palmar cutaneous nerve. Once the transverse carpal ligament was clearly visualized, a longitudinal incision was made in the transverse carpal ligament 1st using a #15 blade, then using tenotomy scissors under direct visualization. Care was taken to look for and protect the motor branch of the median nerve when seen in this area. Once satisfied with our carpal tunnel release the wound was irrigated with normal saline. I then made a 2 cm longitudinal incision directly over the left 1st dorsal co mpartment over the radial styloid. The incision was made through the skin the subcutaneous tissues using a 15. Blade. I then carefully dissected down to the level of the 1st dorsal compartment using tenotomy scissors with care being taken to protect the superficial radial nerve branches and the small vessels in the area. I then made a longitudinal incision through the 1st dorsal compartment 1st using a 15. Blade then using tenotomy scissors under direct visualization. The EPB tendon was noted to be partially in its own compartment and this was also released longitudinally using tenotomy scissors under direct visualization. The tendons appeared to glide well and be stable with wrist range of motion. At this point this wound was also irrigated with normal saline. Both the carpal tunnel incision and this incision were then closed by reapproximating the skin edges with some 5 0 Prolene suture material. My attention was then turned to the cubital tunnel release. A 6 cm gently curved but longitudinally oriented incision was made centered over the cubital tunnel of the left upper extremity. Incision was made through the skin to the subcutaneous tissues using a # 15 Blade. I then dissected down to the level of the medial epicondyle and the cubital tunnel using tenotomy scissors. Care was taken to protect the lateral antebrachial cutaneous nerve. The ulnar nerve was identified just posterior to the medial intermuscular septum. The ulnar nerve was released in a proximal to distal direction using tenotomy in iris scissors while directly visualizing and protecting the ulnar nerve. Thickening and fibrosis was appreciated about the ulnar nerve as it passed through the cubital tunnel. The tightest area about the nerve appeared to be where the nerve transitioned into the space between the 2 heads of the flexor carpi ulnaris. The ulnar nerve was assessed as I passed the elbow through full flexion and extension and was found to remain stable within its groove. At this point the tourniquet was deflated and hemostasis obtained with a brief period of local pressure and bipolar electrocautery. The wound was copiously irrigated with normal saline. The subcutaneous layer was closed with 4-0 Vicryl suture, and the skin edges were reapproximated with 5-0 nylon suture. The wounds were infiltrated with some 0.5% plain ropivacaine for postop pain control and sterile dressings were applied. The patient appears to have tolerated the procedure well and with no complications. All digits were well vascularized conclusion of the case.
--- NOTE | 2022-11-26 12:35 | MHC.SHP ---
Pre-Procedural Eval Section A Date of Service: 11/26/22 The patient is an INPATIENT: No Changes since office visit: No Cold of Flu in the past 2 weeks, No New Medical Problems, No Changes in Medication and No Patient answered all questions The History & Physical has been completed within 30 days and I have reviewed it.: Yes Section B Chief Complaint: carpal, tunnel syndrome,radial styloid,lesion of u Allergies: Allergies Allergy/AdvReac Type Severity Reaction Status Date / Time NILSA Inhibitors AdvReac Intermediate Cough Verified 11/24/22 10:58 metformin AdvReac Intermediate Abdominal Verified 11/24/22 10:58 Pain Plan I have reviewed the history and physical and performed a pertinent physical examination on my patient. No changes have occurred unless specified. Time Spent With Patient Time: Total time managing care of this patient today ____ minutes.
== END 2022-11-26 14:32 | disposition home or self-care (01) ==
PROVIDERS: PCP Internal Medicine; Visit Provider Orthopaedic Surgery
PROC: (CPT 64721; principal; 2022-11-26 10:30)
PROC: (CPT 64718; 2022-11-26 10:30)
PROC: (CPT 64721; 2022-11-26 10:30)
DX: G56.02 Carpal tunnel syndrome, left upper limb (principal); M65.4 Radial styloid tenosynovitis [de Quervain]; G56.22 Lesion of ulnar nerve, left upper limb; M25.532 Pain in left wrist; R20.0 Anesthesia of skin; R20.2 Paresthesia of skin; G50.0 Trigeminal neuralgia; M79.7 Fibromyalgia; I20.9 Angina pectoris, unspecified; J45.909 Unspecified asthma, uncomplicated; E11.22 Type 2 diabetes mellitus with diabetic chronic kidney disease; I12.9 Hypertensive chronic kidney disease with stage 1 through stage 4 chronic kidney disease, or unspecified chronic kidney disease; N18.30 Chronic kidney disease, stage 3 unspecified; Z79.84 Long term (current) use of oral hypoglycemic drugs; Z79.51 Long term (current) use of inhaled steroids; Z79.82 Long term (current) use of aspirin; Z79.899 Other long term (current) drug therapy; Z87.891 Personal history of nicotine dependence
CPT/HCPCS: 64721; 25000; 64718; 82947; J0131; J0690; J1100; J2250; J2405; J2795; J3010

== ENCOUNTER → 2022-12-08 13:33 | Outpatient (BNVA) | payer OTHER, SELFPAY | PROVIDERS: PCP Internal Medicine; Visit Provider Orthopaedic Surgery | DX: Z13.89 Encounter for screening for other disorder (principal) ==

== ENCOUNTER → 2022-12-28 10:32 | Outpatient (BNVA) | payer OTHER, SELFPAY | PROVIDERS: PCP Internal Medicine; Visit Provider Internal Medicine Rheumatology | DX: M17.10 Unilateral primary osteoarthritis, unspecified knee (principal); M79.7 Fibromyalgia; M47.816 Spondylosis without myelopathy or radiculopathy, lumbar region; Z79.899 Other long term (current) drug therapy | CPT/HCPCS: 99212 ==

== ENCOUNTER 2023-01-11 12:28 | Outpatient (REF) | payer OTHER, SELFPAY ==
[2023-01-11 13:29] LABS: Estimated Average Glucose 154 mg/dL
[2023-01-11 14:18] LABS: Alanine Aminotransferase 15 U/L (0-31); Albumin Level 4.5 g/dL (3.5-5.0); Alkaline Phosphatase 103 U/L (39-117); Anion Gap 15 (12-20); Aspartate Amino Transferase 16 U/L (5-31); Bilirubin Total 0.4 mg/dL (0.0-1.0); Blood Urea Nitrogen 17 mg/dL (9-16); Carbon Dioxide 25 mmol/L (22-29); Chloride 102 mmol/L (96-108); Cholesterol 254 mg/dL; Estimated Glomerular Filt Rate 46; Glucose Random 162 mg/dL (60-115); HDL Cholesterol 62 mg/dL; LDL Cholesterol Calculated 141 mg/dl; Potassium 4.5 mmol/L (3.3-5.1); Sodium 137 mmol/L (135-145); Total Protein 7.8 g/dL (6.5-8.0); Triglycerides 257 mg/dL
[2023-01-11 14:44] LABS: Folate > 20.0 ng/mL (> or = 4.0); Thyroid Stimulating Hormone 0.57 uIU/mL (0.32-4.0); Vitamin B12 467 pg/mL (200-900)
== END 2023-01-11 12:29 | disposition home or self-care (01) ==
LOC: HO.LAB 12:28
PROVIDERS: PCP Internal Medicine; Visit Provider Internal Medicine
DX: E11.9 Type 2 diabetes mellitus without complications (principal); E78.00 Pure hypercholesterolemia, unspecified; I10 Essential (primary) hypertension; G47.33 Obstructive sleep apnea (adult) (pediatric)
CPT/HCPCS: 36415; 80053; 80061; 82607; 82746; 83036; 84443

== ENCOUNTER 2023-04-05 12:09 | Outpatient (REF) | payer OTHER, SELFPAY ==
[2023-04-05 13:06] LABS: Estimated Average Glucose 146 mg/dL; Hemoglobin A1c % 6.7 %
[2023-04-05 13:31] LABS: Alanine Aminotransferase 12 U/L (0-31); Albumin Level 4.4 g/dL (3.5-5.0); Alkaline Phosphatase 110 U/L (39-117); Anion Gap 15 (12-20); Aspartate Amino Transferase 17 U/L (5-31); Bilirubin Total 0.4 mg/dL (0.0-1.0); Blood Urea Nitrogen 17 mg/dL (9-16); Calcium 9.9 mg/dL (8.4-10.2); Carbon Dioxide 26 mmol/L (22-29); Chloride 99 mmol/L (96-108); Cholesterol 216 mg/dL; Estimated Glomerular Filt Rate 43; Glucose Random 134 mg/dL (60-115); HDL Cholesterol 63 mg/dL; LDL Cholesterol Calculated 116 mg/dl; Potassium 4.3 mmol/L (3.3-5.1); Sodium 136 mmol/L (135-145); Total Protein 7.9 g/dL (6.5-8.0); Triglycerides 185 mg/dL
[2023-04-05 13:59] LABS: Folate 17.1 ng/mL (> or = 4.0); Thyroid Stimulating Hormone 0.71 uIU/mL (0.32-4.0); Vitamin B12 409 pg/mL (200-900)
[2023-04-05 17:10] LABS: Creatinine Urine 168.72 mg/dL; Microalbum/Creatinine Ratio Ur 16.5 ug/mg cr
== END 2023-04-05 12:10 | disposition home or self-care (01) ==
LOC: HO.LAB 12:09
PROVIDERS: PCP Internal Medicine; Visit Provider Internal Medicine
DX: E11.9 Type 2 diabetes mellitus without complications (principal); E78.00 Pure hypercholesterolemia, unspecified; G47.33 Obstructive sleep apnea (adult) (pediatric); I10 Essential (primary) hypertension
CPT/HCPCS: 36415; 80053; 80061; 82043; 82607; 82746; 83036; 84443

== ENCOUNTER 2023-07-11 09:36 | Outpatient (REF) | payer OTHER, SELFPAY ==
[2023-07-11 11:05] LABS: Alanine Aminotransferase 14 U/L (0-31); Albumin Level 4.2 g/dL (3.5-5.0); Alkaline Phosphatase 98 U/L (39-117); Anion Gap 14 (12-20); Aspartate Amino Transferase 15 U/L (5-31); Bilirubin Total 0.3 mg/dL (0.0-1.0); Blood Urea Nitrogen 21 mg/dL (9-16); Calcium 10.3 mg/dL (8.4-10.2); Carbon Dioxide 26 mmol/L (22-29); Chloride 99 mmol/L (96-108); Cholesterol 190 mg/dL (<200); Estimated Glomerular Filt Rate 39; Glucose Random 181 mg/dL (60-115); HDL Cholesterol 59 mg/dL (>40); LDL Cholesterol Calculated 96 mg/dL (<100); Potassium 3.7 mmol/L (3.3-5.1); Sodium 135 mmol/L (135-145); Total Protein 8.2 g/dL (6.5-8.0); Triglycerides 175 mg/dL (<150)
[2023-07-11 11:10] LABS: Estimated Average Glucose 143 mg/dL; Hemoglobin A1c % 6.6 % (<6.0)
== END 2023-07-11 09:37 | disposition home or self-care (01) ==
LOC: HO.10HDL 09:36
PROVIDERS: Visit Provider Internal Medicine
DX: E11.9 Type 2 diabetes mellitus without complications (principal); E78.00 Pure hypercholesterolemia, unspecified; G47.33 Obstructive sleep apnea (adult) (pediatric); I10 Essential (primary) hypertension; J30.89 Other allergic rhinitis; M47.816 Spondylosis without myelopathy or radiculopathy, lumbar region; M17.10 Unilateral primary osteoarthritis, unspecified knee; M79.7 Fibromyalgia
CPT/HCPCS: 36415; 80053; 80061; 83036; 99212

== ENCOUNTER 2023-07-11 10:05 | Outpatient (AMB) | payer OTHER, SELFPAY ==
[2023-07-11 10:09] VITALS: BP 138/64; PULSE 65; TEMP 36.1; O2SAT 98; BMI 27.9
--- NOTE | 2023-07-11 10:09 | A.OFFVIS_ITS ---
Intake Vital Signs 07/11/23 10:09 Height 5 ft 9 in Weight 188 lb 11.451 oz BMI 27.9 BP 138/64 Blood Pressure Location Lt brachial Position Sitting Pulse 65 Pulse Source Pulse Oximeter Temp 97 F Temp Source Skin Pulse Oximetry (%) 98 Oxygen Delivery Method Room Air Intake Visit Reasons: oa knee Intake Note: Here for OA of the knee follow up. c/o right hip pain Advanced Practice Psychiatric Nurse Required: Yes Advanced Practice Psychiatric Nurse Language: Administrative Officer Name: Saray [id number] Information Interpreted: clinical only Accompanied by: Self / Same As Patient Allergies NILSA Inhibitors Adverse Reaction (Intermediate, Verified 07/11/23 10:09) Cough Medication List - Last Reconciled 07/11/23 by Rahul Hugo MD acetaminophen ER (Arthritis Pain Relief (acetaminophen) ER) 650 mg PO Q8H PRN albuterol sulfate 90 mcg/actuation (ProAir HFA) 2 puffs inhalation Q6H PRN ascorbate calcium (vitamin C) 500 mg PO DAILY aspirin (Adult Low Dose Aspirin) 81 mg PO DAILY carbamazepine ER 200 mg PO BID cetirizine (All Day Allergy (cetirizine)) 10 mg PO DAILY duloxetine 60 mg PO DAILY fluticasone propionate 110 mcg/actuation (Flovent HFA) 2 puffs inhalation BID fluticasone propionate 50 mcg/actuation (Flonase Allergy Relief) 1 spray intranasal DAILY folic acid 1 mg PO QAM gabapentin 300 mg PO TID hydrochlorothiazide 25 mg PO DAILY ibuprofen 600 mg PO TID PRN ketotifen fumarate 0.025%(0.035%) 1 drp ophthalmic (eye) BID loratadine (Allergy Relief (loratadine)) 10 mg PO DAILY lorazepam 1 mg PO BEDTIME losartan-hydrochlorothiazide 100-25 mg 1 tab PO QAM meloxicam 15 mg PO DAILY metformin ER 750 mg PO BID metoprolol succinate ER 200 mg PO DAILY omeprazole 40 mg PO DAILY oxycodone-acetaminophen 5-325 mg 1 - 2 tabs PO Q6H PRN pyridoxine (vitamin B6) 50 mg PO DAILY rosuvastatin 40 mg PO BEDTIME sennosides-docusate sodium 8.6-50 mg (Senexon-S) 2 tab-caps PO BEDTIME tolterodine ER (Detrol LA) 4 mg PO DAILY trazodone 50 mg PO BEDTIME triamcinolone acetonide (Nasacort) 1 spray intranasal DAILY triamcinolone acetonide 0.5% 1 appl topical BID zinc acetate 50 mg PO TID HPI HPI Comments History of Present Illness Details The patient returns for evaluation of her fibromyalgia and osteoarthritis. We used the [employer] translating service to communicate. The patient describes multiple areas of pain. This includes the lower back, shoulders, hips, knees, and left ankle. She remains on duloxetine 60 mg daily, gabapentin 300 mg t.i.d., and trazodone 50 mg q.h.s.. She has had in the past year de Quervain tenosynovitis tendon release and carpal tunnel surgery. That seems to be doing okay although she still has some pain in the palm of the left hand. She seems to have most of her pain in the right knee with walking at present. She has had occasional injections in the left knee in the past. She also complains of right lateral and posterior hip pain. This seems to come on with prolonged standing. She is more concerned however about left ankle pain. Sometimes she feels this comes on enough that she feels like she might fall. She does use a cane for walking. She is not that clear on her medications but we have listed meloxicam 15 mg daily and ibuprofen 800 mg t.i.d. p.r.n.. She says she rarely takes the ibuprofen at this point, preferring acetaminophen. She says she is no longer on any Percocet. [facility] Medical History (Updated 07/11/23 @ 10:47 by Rahul Hugo MD) Angina pectoris Aortic dilatation Arthritis Asthma Chronic renal insufficiency Depression Diabetes Elevated cholesterol Fibromyalgia HTN (hypertension) Osteoarthritis of knee Sleep apnea Trigeminal neuralgia Surgical History H/O colonoscopy History of carpal tunnel release History of pubovaginal sling Hx of cardiac catheterization Social History Alcohol intake: former Year quit: 2007 Patient Tobacco Use Status: Former Tobacco user Quit Date: 2007 Review of Systems Const Details: She says is stamina is limited by leg pains when she walks. Negative for appetite change, weight change, fever, chills, malaise Eyes Details: Negative for vision change, dry eyes,headaches and dizziness Card Details: Negative chest pain, edema and syncope Resp Details: Negative for SOB, cough and wheezing GI Details: Negative indigestion/heartburn, nausea, abdominal pain, bowel changes, diarrhea, constipation and bloody stool. Details: Negative for dysuria, hematuria, nocturia, decreased force/flow and genital discharge Neuro Details: Negative for epilepsy, palsy, stroke, changes in speech, tingling and weakness Psych Details: Negative for anxiety, depression and stress Endo Details: Negative for polyuria and polydypsia Florin/Lymph Details: Negative for excessive bruising or bleeding. Physical Exam Vital Signs: Last Vital Signs Temp 97 F 07/11/23 10:09 Pulse 65 07/11/23 10:09 BP 138/64 07/11/23 10:09 Pulse Ox 98 07/11/23 10:09 Oxygen Delivery Method Room Air 07/11/23 10:09 BMI result Body Mass Index 27.9 APPEARANCE: Patient in no acute distress EXTREMITIES:? No edema, no calf tenderness, normal peripheral pulses. Cervical Spine:.? Full range of motion with mild pain; some mild cervical muscle tenderness. Thoracic Spine:.? No scoliosis.? No tenderness on palpation. Lumbar Spine:.? Alignment normal.? Mild pain with flexion at 45 degrees. no tenderness. Chest Wall:.? No tenderness, swelling, increased warmth or erythema. Hands:? Right:? Normal pain-free range of motion. No tenderness or swelling in the joints today. Loss no sensory loss or thenar atrophy. ? Left:? The patient has healed scars over the thumb and carpal tunnel region.? These are minimally tender but not indurated, red or warm.? The joints have pain-free range of motion.? Sensory exam in the fingertips looks to be normal. ? There is ? also some slight tenderness in the thumb CMC, the thumb IP and 1st MCP joints.? None of those areas? have swelling, increased warmth or erythema.? No swelling or flexor tendon triggering is appreciated. Wrists:.? Right: Normal pain-free range of motion without any tenderness or swelling. Left: Slight pain with extremes of motion. Minimal tenderness at the lower palmar aspect near the carpal tunnel surgery site.No swelling, increased warmth or erythema. Elbows: Left: mild discomfort over the medial elbow where her incision is. It looks to be healing without signs of infection. Right: Normal pain-free range of motion without tenderness, swelling, increased warmth or erythema. Shoulders: Right: Slight discomfort with extremes of normal range of motion wi th some minimal anterior tenderness. Left:?? Full range of motion with mild pain with abduction at 150 degrees or with extremes of normal internal or external rotation. There is some slight anterior tenderness but no swelling, increased warmth or erythema. Hips: Right: Mild buttock and lateral discomfort with extremes of normal range of motion. No groin pain with motion. Left:.? Full range of motion without pain. Hip bursa:? Mild right and slight left trochanteric tenderness. Knees:? Right:? Mild pain with extremes of normal range of motion and some mild medial tenderness but no effusion, redness or warmth.? There is some mild patellofemoral crepitus.? Left:? Normal pain-free range of motion.? There is some slight tenderness but no effusion, soft tissue swelling, increased warmth or erythema. Ankles: Left: Mild pain with extremes of inversion and eversion. Slight medial and lateral tenderness without redness or swelling. AP motion seems pain-free and intact. Right: Normal pain-free range of motion without tenderness, swelling, increased warmth or erythema. Feet:? Bilateral mild 1st MTP bony enlargement, hallux valgus deformity and slight tenderness.? No soft tissue swelling.? No small joint synovitis is appreciated. Tender points:? Mild tenderness to digital palpation at the occiput, trapezius, second rib, lateral epicondyle, knees, greater trochanter and gluteal area bilaterally. ? Results Reviewed Results Reviewed: [address] [address] XRay Report Signed Patient: Teodora Martínez MR#: [id number] : 1955 Acct:[id number] Age/Sex: 66 / F ADM Date: 01/25/[address]: Rahul Hugo MD Ordering Physician: Rahul Hugo MD Date of Service: 01/25/22 Procedure(s): XR knee RT 2V Accession Number(s): [id number] cc: Rahul Hugo MD~ EXAMINATION: XR KNEE, RIGHT XR KNEE, LEFT CLINICAL INFORMATION: M25.9 - Joint disorder, unspecified? COMPARISON: Radiographs right knee 10/05/2011, radiographs left knee 03/24/2017? TECHNIQUE: Each knee is imaged in standing AP and lateral views. There are 2 views on each side.? FINDINGS: Right: Normal bony mineralization. No acute or healing fracture, dislocation, destructive process. There is mild thickening suprapatellar bursa consistent with small effusion. Hoffa's fat pad appears normal. There is an old sclerotic bone island in the proximal tibia similar to prior exam 2010. 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 Mild spurring at quadriceps insertion patella. There is mild genu valgus similar to prior exam. No joint narrowing or erosive change or chondrocalcinosis. Left: Normal bony mineralization. No acute or healing fracture, dislocation, destructive process. No suprapatellar effusion. Hoffa's fat pad appears normal. 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 There is mild genu valgus. No joint narrowing or erosive change or chondrocalcinosis. There is ossification in region of the proximal medial collateral ligament measuring 0.4 cm thickness by 1.7 cm in length, new finding since 2017, and likely related to chronic injury proximal MCL. XR/XR knee RT 2V IMPRESSION: Right: -Mild genu valgus. No joint narrowing or erosive change. Trace suprapatellar fluid. -Probable bipartite patella, stable. Spurring quadriceps insertion patella. -Old bone island proximal tibia. ? Left: -Mild genu valgus. No joint narrowing or erosive change or effusion. -Bipartite patella, stable. Spurring quadriceps insertion patella. -New ossification in region of proximal MCL, likely related to remote injury. ? Dictated By: Kumar Rios MD Assessment & Plan Assessment & Plan (1) Osteoarthritis of lumbar spine: Code(s): M47.816 - Spondylosis without myelopathy or radiculopathy, lumbar region (2) Osteoarthritis of knee: Code(s): M17.10 - Unilateral primary osteoarthritis, unspecified knee (3) Fibromyalgia: Code(s): M79.7 - Fibromyalgia Plan Patient continues with multiple areas of pain. I do not see any signs of an active inflammatory process. I told her I thought she had a combination of osteoarthritis and fibromyalgia. The knee films looked fairly good but I think there still may be some OA present there. A course of physical therapy was recommended but she says she heard the physical therapy makes people feel worse so declines it. She remains on multiple medications for fibromyalgia and I think those could be continued for now. She was warned not to take meloxicam and ibuprofen as the combination may be too toxic for her. I do not think we have further we could offer her for now. I suggested a 6 month return window but she wants to come back in 3 months. Orders: Orders XR ankle LT min 3V Today M25.572 - Pain in left ankle and joints of left foot Coding Level of Care Code Est Pt Level 3 (68647) Diagnoses Osteoarthritis of lumbar spine M47.816 Osteoarthritis of knee M17.10 Fibromyalgia M79.7
== END 2023-07-11 10:56 | disposition home or self-care (01) ==
PROVIDERS: PCP Internal Medicine; Visit Provider Internal Medicine Rheumatology
DX: M47.816 Spondylosis without myelopathy or radiculopathy, lumbar region (principal); M17.10 Unilateral primary osteoarthritis, unspecified knee; M79.7 Fibromyalgia
CPT/HCPCS: 99213

== ENCOUNTER 2023-07-12 12:28 | Outpatient (REF) | payer OTHER, SELFPAY ==
--- NOTE | ~2023-07-12 | XR_ITS ---
EXAMINATION: XR ANKLE, LEFT CLINICAL INFORMATION: Pain in left ankle and joints of foot COMPARISON: 07/15/2015 TECHNIQUE: AP, lateral, and mortise views of the left ankle. FINDINGS: Radiopaque marker placed to indicate area of concern indicated by the patient at the lateral aspect of the ankle. Soft tissue swelling with joint effusion at the ankle. Vascular calcifications. Prominent plantar and dorsal calcaneal spurring. No acute displaced fracture. XR/XR ankle LT min 3V IMPRESSION: Prominent plantar and dorsal calcaneal spurring. No acute displaced fracture. Recommend follow-up imaging in 10-14 days if fracture is suspected.
== END 2023-07-12 12:29 | disposition home or self-care (01) ==
LOC: HO.XRAY 12:28
PROVIDERS: PCP Internal Medicine; Visit Provider Internal Medicine Rheumatology
DX: M25.572 Pain in left ankle and joints of left foot (principal)
CPT/HCPCS: 73610

== ENCOUNTER 2023-10-10 11:41 | Outpatient (REF) | payer OTHER, SELFPAY ==
[2023-10-10 12:28] LABS: Basophils Absolute Auto 0.1 X10*3/uL (0.0-0.2); Basophils Percent Auto 0.8 % (0-2); Eosinophils Absolute Auto 0.2 X10*3/uL (0.0-0.4); Hematocrit 37.7 % (37.0-47.0); Hemoglobin 11.8 g/dl (12.0-16.0); Imm Gran Abs Auto 0.01 X10*3/uL (0.00-0.03); Imm Gran Pct Auto 0.2 % (0.0-0.4); Lymphocytes Absolute Auto 1.7 X10*3/uL (1.2-4.9); Lymphocytes Percent Auto 27.9 % (20-40); MANUAL DIFF FLAG SCAN; Mean Corpuscular HGB Conc 31.3 g/dl (31.0-35.0); Mean Corpuscular Hemoglobin 25.8 pg (27.0-33.0); Mean Corpuscular Volume 82.3 fL (80.0-98.0); Monocytes Absolute Auto 0.4 X10*3/uL (0.1-1.2); Monocytes Percent Auto 6.2 % (2-11); Neutrophils Absolute Auto 3.7 x10*3/uL (2.0-8.3); Neutrophils Percent Auto 61.9 % (45-73); PLT CLUMP 1; Red Blood Count 4.58 X10*6/uL (4.20-5.50); Red Cell Distribution Width 14.2 % (11.0-16.0); SCAN SMEAR FLAG 1
[2023-10-10 13:01] LABS: Platelet Count 230 X10*3/uL (160-400); SLIDE REVIEW VERIFIED
[2023-10-10 13:11] LABS: Alanine Aminotransferase 16 U/L (0-31); Albumin Level 4.2 g/dL (3.5-5.0); Alkaline Phosphatase 90 U/L (39-117); Anion Gap 11 (12-20); Aspartate Amino Transferase 23 U/L (5-31); Bilirubin Total 0.3 mg/dL (0.0-1.0); Blood Urea Nitrogen 11 mg/dL (9-16); Calcium 9.8 mg/dL (8.4-10.2); Carbon Dioxide 27 mmol/L (22-29); Chloride 97 mmol/L (96-108); Cholesterol 173 mg/dL (<200); Estimated Glomerular Filt Rate 50; Glucose Random 103 mg/dL (60-115); HDL Cholesterol 57 mg/dL (>40); LDL Cholesterol Calculated 87 mg/dL (<100); Potassium 4.3 mmol/L (3.3-5.1); Sodium 131 mmol/L (135-145); Total Protein 7.9 g/dL (6.5-8.0); Triglycerides 148 mg/dL (<150)
[2023-10-10 13:18] LABS: Creatinine Urine 133.85 mg/dL; Microalbum/Creatinine Ratio Ur 17.1 ug/mg cr (<30)
[2023-10-10 13:26] LABS: Vitamin B12 447 pg/mL (200-900)
== END 2023-10-10 11:42 | disposition home or self-care (01) ==
LOC: HO.LAB 11:41
PROVIDERS: PCP Internal Medicine; Visit Provider Internal Medicine
DX: E11.9 Type 2 diabetes mellitus without complications (principal); E78.00 Pure hypercholesterolemia, unspecified; G47.33 Obstructive sleep apnea (adult) (pediatric); R07.89 Other chest pain
CPT/HCPCS: 36415; 80053; 80061; 82043; 82570; 82607; 85025

== ENCOUNTER 2023-10-20 10:32 | Outpatient (AMB) | payer OTHER, SELFPAY ==
--- NOTE | 2023-10-20 10:48 | MHC.OFFVIS ---
Intake Vital Signs 10/20/23 10:49 Height 5 ft 9 in Weight 185 lb 10.067 oz BMI 27.4 BP 92/62 Blood Pressure Location Lt brachial Position Sitting Pulse 75 Pulse Source Pulse Oximeter Temp 97 F Temp Source Skin Pulse Oximetry (%) 95 Oxygen Delivery Method Room Air Intake Visit Reasons: FM Intake Note: Patient presents today to follow up on fibromyalgia. Associate Civil Engineer Required: Yes Associate Civil Engineer Language: Brokerage Office Manager Name: Kyung Logan1 Information Interpreted: clinical only Accompanied by: Self / Same As Patient Allergies NILSA Inhibitors Adverse Reaction (Intermediate, Verified 10/20/23 10:56) Cough Medication List - Last Reconciled 10/20/23 by Rahul Hugo MD acetaminophen ER (Arthritis Pain Relief (acetaminophen) ER) 650 mg PO Q8H PRN albuterol sulfate 90 mcg/actuation (ProAir HFA) 2 puffs inhalation Q6H PRN ascorbate calcium (vitamin C) 500 mg PO DAILY aspirin (Adult Low Dose Aspirin) 81 mg PO DAILY carbamazepine ER 200 mg PO BID cetirizine (All Day Allergy (cetirizine)) 10 mg PO DAILY duloxetine 60 mg PO DAILY ezetimibe 10 mg PO DAILY fluticasone propionate 110 mcg/actuation (Flovent HFA) 2 puffs inhalation BID fluticasone propionate 50 mcg/actuation (Flonase Allergy Relief) 1 spray intranasal DAILY folic acid 1 mg PO QAM gabapentin 300 mg PO TID hydrochlorothiazide 25 mg PO DAILY ibuprofen 600 mg PO TID PRN ketotifen fumarate 0.025%(0.035%) 1 drp ophthalmic (eye) BID loratadine (Allergy Relief (loratadine)) 10 mg PO DAILY lorazepam 1 mg PO BEDTIME losartan-hydrochlorothiazide 100-25 mg 1 tab PO QAM meloxicam 15 mg PO DAILY metformin ER 750 mg PO BID metoprolol succinate ER 200 mg PO DAILY nitroglycerin mg sublingual omeprazole 20 mg PO DAILY pyridoxine (vitamin B6) 50 mg PO DAILY rosuvastatin 40 mg PO BEDTIME sennosides-docusate sodium 8.6-50 mg (Senexon-S) 2 tab-caps PO BEDTIME tolterodine ER (Detrol LA) 4 mg PO DAILY trazodone 50 mg PO BEDTIME triamcinolone acetonide (Nasacort) 1 spray intranasal DAILY triamcinolone acetonide 0.5% 1 appl topical BID zinc acetate 50 mg PO TID HPI HPI Comments History of Present Illness Details The patient returns for evaluation of her widespread pains due to fibromyalgia and osteoarthritis. She complains of pain in the neck, left shoulder, right shoulder, lower back, lateral hips, knees and feet. Most problematic seems to be the left shoulder and the left knee. She recalls a distant treatment of the left shoulder pain with a corticosteroid injection that was helpful for a number of years. The knees are more painful with standing or walking. She does have on her list meloxicam 15 mg daily, duloxetine 60 mg daily, acetaminophen p.r.n., and gabapentin 300 mg t.i.d.. She denies any sedation with her medications but is not quite sure whether she is taking meloxicam or not. [facility] Medical History (Updated 10/20/23 @ 12:19 by Rahul Hugo MD) Trigeminal neuralgia Elevated cholesterol Angina pectoris Aortic dilatation Depression Chronic renal insufficiency Sleep apnea Fibromyalgia Osteoarthritis of knee Arthritis Diabetes HTN (hypertension) Asthma Surgical History History of carpal tunnel release Hx of cardiac catheterization H/O colonoscopy History of pubovaginal sling Social History Alcohol intake: former Year quit: 2007 Patient Tobacco Use Status: Former Tobacco user Quit Date: 2007 Review of Systems Const Details: Negative for appetite change, weight change, fever, chills, malaise and fatigue Card Details: Negative chest pain, edema and syncope Resp Details: Negative for SOB, cough and wheezing GI Details: Negative indigestion/heartburn, nausea, abdominal pain, bowel changes, diarrhea, constipation and bloody stool. Endo Details: Negative for polyuria and polydypsia Florin/Lymph Details: Negative for excessive bruising or bleeding. Physical Exam Vital Signs: Last Vital Signs Temp 97 F 10/20/23 10:49 Pulse 75 10/20/23 10:49 BP 92/62 10/20/23 10:49 Pulse Ox 95 10/20/23 10:49 Oxygen Delivery Method Room Air 10/20/23 10:49 BMI result Body Mass Index 27.4 APPEARANCE: Patient in no acute distress Cervical Spine:.? Full range of motion with mild pain; some mild cervical muscle tenderness. Thoracic Spine:.? No scoliosis.? No tenderness on palpation. Lumbar Spine:.? Alignment normal.? Mild pain with flexion at 45 degrees. no tenderness. Chest Wall:.? No tenderness, swelling, increased warmth or erythema. Hands:? Right:? Normal pain-free range of motion. There is slight tenderness in the 3rd and 4th MCP joints but no swelling is appreciated. No tenderness or swelling in the other joints today. Loss no sensory loss or thenar atrophy. ? Left:? The patient has healed scars over the thumb and carpal tunnel region.? These are not tender, indurated, red or warm.? The joints have pain-free range of motion.? Sensory exam in the fingertips looks to be normal. ? There is ? also some slight tenderness in the thumb CMC, the thumb IP and 1st MCP joints.? None of those areas? have swelling, increased warmth or erythema.? No swelling or flexor tendon triggering is appreciated. Wrists:.? Right: Normal pain-free range of motion without any tenderness or swelling. Left: no pain with extremes of motion. Minimal tenderness at the lower palmar aspect near the carpal tunnel surgery site.No swelling, increased warmth or erythema. Elbows: Left: nod discomfort over the medial elbow where her incision is. Normal pain-free range of motion.. Right: Normal pain-free range of motion without tenderness, swelling, increased warmth or erythema. Shoulders: Right: Slight discomfort with extremes of normal range of motion with some minimal anterior tenderness. Left:??Mild to moderate pain with abduction 120 degrees or with extremes of internal or external rotation. Mild anterior tenderness without abductor weakness, adenopathy or swelling. Hips: Right: Mild buttock and lateral discomfort with extremes of normal range of motion. No groin pain with motion. Left:.? Full range of motion without pain. Hip bursa:? Mild right and slight left trochanteric tenderness. Knees:? Right:? Mild pain with extremes of normal range of motion and some mild medial tenderness but no effusion, redness or warmth.? There is some mild patellofemoral crepitus.? Left:? Normal pain-free range of motion.? There is some slight tenderness but no effusion, soft tissue swelling, increased warmth or erythema. Ankles: Left: Mild pain with extremes of inversion and eversion. Slight medial and lateral tenderness without redness or swelling. AP motion seems pain-free and intact. Right: Normal pain-free range of motion without tenderness, swelling, increased warmth or erythema. Feet:? Bilateral mild 1st MTP bony enlargement, hallux valgus deformity and slight tenderness.? No soft tissue swelling.? No small joint synovitis is appreciated. Tender points:? Mild tenderness to digital palpation at the occiput, trapezius, second rib, lateral epicondyle, knees, greater trochanter and gluteal area bilaterally. Office Procedures Joint Injection/Drain Joint Injection/Drain Details: With the patient's consent the left shoulder was prepped with ChloraPrep and alcohol. Under a topical ethyl chloride spray the left subacromial space was injected with 40 mg of triamcinolone and 1 cc of 1% lidocaine. The patient tolerated the procedure without any acute adverse effects. Primary Site: left shoulder Injected: 40 mg of, Kenalog, with 1 mL of and 1% plain lidocaine Coding 56930 - Large joint Procedure code (CPT) selection complete Results Reviewed Results Reviewed: 41 Assessment & Plan Assessment & Plan (1) Neck ache: Code(s): M54.2 - Cervicalgia (2) Cervical osteoarthritis: Code(s): M47.812 - Spondylosis without myelopathy or radiculopathy, cervical region (3) Tendinitis of left rotator cuff: Code(s): M75.82 - Other shoulder lesions, left shoulder (4) Osteoarthritis of lumbar spine: Code(s): M47.816 - Spondylosis without myelopathy or radiculopathy, lumbar region (5) Osteoarthritis of knee: Code(s): M17.10 - Unilateral primary osteoarthritis, unspecified knee (6) Fibromyalgia: Code(s): M79.7 - Fibromyalgia Plan Once again the patient does not seem to have symptoms or signs that would suggest active inflammatory arthritis. She has some neck and lower back pain quite consistent with osteoarthritis. There was a neck film from about 10 years ago that did show OA. We will repeat that just to see if there are any changes. The left shoulder has painful range of motion consistent with rotator cuff tendinitis. She wants a local injection there since she had good luck with previous injections in the bursae of the hips. We reviewed potential side effects of such injections. With the patient's consent the left shoulder was prepped with ChloraPrep and alcohol. Under a topical ethyl chloride spray the left subacromial space was injected with 40 mg of triamcinolone and 1 cc of 1% lidocaine. The patient tolerated the procedure without any acute adverse effects. She will rest the area for a few days and then begin some gentle, [id number] exercises. If she does not respond we would do an x-ray and send her for some physical therapy. She also has some pain with range of motion in the right knee. This looks like it is consistent with some osteoarthritis although x-rays from a year or two ago were normal that could be some degenerative meniscal process. She does not want to proceed with further workup at this point and declines physical therapy. We will continue with her ibuprofen if needed and p.r.n. acetaminophen. With the many tender points she has some elements of fibromyalgia as well. She is already on an antidepressant and gabapentin so those can be continued. A follow-up in 6 months would be reasonable. Orders: Orders XR cervical spine 3V Today M54.2 - Cervicalgia AMB Joint Injection/Aspiration Today M75.82 - Other shoulder lesions, left shoulder Coding Level of Care Code Est Pt Level 4 (50371) Diagnoses Neck ache M54.2 Cervical osteoarthritis M47.812 Tendinitis of left rotator cuff M75.82 Osteoarthritis of lumbar spine M47.816 Osteoarthritis of knee M17.10 Fibromyalgia M79.7 CPT Codes Coding - 19427 Large joint: 33560 - Large joint ([id number])
[2023-10-20 10:49] VITALS: BP 92/62; PULSE 75; TEMP 36.1; O2SAT 95; BMI 27.4
== END 2023-10-20 11:53 | disposition home or self-care (01) ==
PROVIDERS: PCP Internal Medicine; Visit Provider Internal Medicine Rheumatology
DX: M79.7 Fibromyalgia (principal); M54.2 Cervicalgia; M47.812 Spondylosis without myelopathy or radiculopathy, cervical region; M75.82 Other shoulder lesions, left shoulder; M47.816 Spondylosis without myelopathy or radiculopathy, lumbar region; M17.10 Unilateral primary osteoarthritis, unspecified knee
CPT/HCPCS: 20610; 99214

== ENCOUNTER → 2023-10-20 10:32 | Outpatient (BNVA) | payer OTHER, SELFPAY | PROVIDERS: PCP Internal Medicine; Visit Provider Internal Medicine Rheumatology | DX: M79.7 Fibromyalgia (principal); M54.2 Cervicalgia; M47.812 Spondylosis without myelopathy or radiculopathy, cervical region; M75.82 Other shoulder lesions, left shoulder; M47.816 Spondylosis without myelopathy or radiculopathy, lumbar region; M17.10 Unilateral primary osteoarthritis, unspecified knee | CPT/HCPCS: 20610; 99212 ==

== ENCOUNTER 2023-10-27 10:30 | Outpatient (REF) | payer OTHER, SELFPAY ==
--- NOTE | ~2023-10-27 | MM_ITS ---
EXAMINATION: MM SCREENING DIGITAL BREAST TOMOSYNTHESIS, BILATERAL CLINICAL INFORMATION: Screening. Asymptomatic. COMPARISON: Mammography: 10/06/2022, 07/02/2021, 01/01/2020, 11/16/2018 TECHNIQUE: Digital breast tomosynthesis is performed in both the craniocaudal and mediolateral oblique views along with computer-aided detection (CAD). Synthesized 2D images are generated from the tomosynthesis. FINDINGS: The breasts are almost entirely fatty (ACR BI-RADS breast composition Category a). There are no suspicious masses, suspicious grouped calcifications, or areas of architectural distortion in either breast. The parenchymal pattern is stable from prior exams. MM/MM tomosynthesis screening BI IMPRESSION: No mammographic evidence of malignancy. ASSESSMENT: BI-RADS BI-RADS 1 - Negative RECOMMENDATION: Routine annual mammography screening. 1 year F/U This examination should not preclude the clinical evaluation of a suspicious palpable abnormality. This patient's information was entered into a reminder system with a target due date for their next mammogram.
== END 2023-10-27 10:31 | disposition home or self-care (01) ==
LOC: HO.MAMMO 10:30
PROVIDERS: PCP Internal Medicine; Visit Provider Internal Medicine
DX: Z12.31 Encounter for screening mammogram for malignant neoplasm of breast (principal)
CPT/HCPCS: 77063; 77067

== ENCOUNTER → 2023-10-27 11:00 | Outpatient (BNV) | payer OTHER, SELFPAY | PROVIDERS: PCP Internal Medicine; Visit Provider Radiology Diagnostic Radiology | DX: Z12.31 Encounter for screening mammogram for malignant neoplasm of breast (principal) | CPT/HCPCS: 77063; 77067 ==

== ENCOUNTER 2023-10-28 10:55 | Outpatient (AMB) | payer OTHER, SELFPAY ==
--- NOTE | 2023-10-28 11:50 | HO.NEPHOV_ITS ---
HPI HPI Comments History of Present Illness Details I had the privilege of seeing Teodora in follow-up of her chronic kidney disease and hypertension. She feels well. She denies any chest pain, shortness of breath, proximal nocturnal dyspnea, orthopnea, pedal edema, orthostatic symptoms, hematuria or hypoglycemia. Her blood sugar is well controlled. She avoids nonsteroidal and anti-inflammatories and maintain good hydration. she did not have any active complaints at the time of this office visit. [facility] Medical History (Updated 11/07/23 @ 22:46 by Chris Khan MD) Trigeminal neuralgia Elevated cholesterol Angina pectoris Aortic dilatation Depression Chronic renal insufficiency Sleep apnea Fibromyalgia Osteoarthritis of knee Arthritis Diabetes HTN (hypertension) Asthma Surgical History History of carpal tunnel release Hx of cardiac catheterization H/O colonoscopy History of pubovaginal sling Social History Alcohol intake: former Year quit: 2007 Patient Tobacco Use Status: Former Tobacco user Quit Date: 2007 Vital Signs 10/28/23 11:51 Height 5 ft 9 in Weight 182 lb BMI 26.9 BP 100/70 Blood Pressure Location Rt brachial Position Sitting Pulse 60 Pulse Source Pulse Oximeter Physical Exam Vital Signs: Last Vital Signs Pulse 60 10/28/23 11:51 BP 100/70 10/28/23 11:51 BMI result Body Mass Index 26.9 Const General: comfortable and no acute distress Orientation/consciousness: patient oriented x3 HEENT Head: Yes normocephalic Mouth: Normal oral and palatal mucosa present Eyes EOM: EOMs intact bilaterally Neck Neck: Yes supple Resp Auscultation: clear to auscultation bilaterally Cardio Jugular venous distension: no JVD Rate: regular rate GI Palpation (GI): Soft to palpation Auscultation: normal bowel sounds General: Yes no CVA tenderness Back/Spine/Pelvis Back: no CVA tenderness Skin General skin exam: no rashes or lesions noted Neuro General: patient oriented x3 and moves all extremities Extrem General: Yes no pedal edema Assessment & Plan Assessment & Plan (1) Chronic renal insufficiency: Comment: stage 3 Code(s): N18.9 - Chronic kidney disease, unspecified Qualifiers: Chronic kidney disease stage: stage 3 (moderate) Chronic kidney disease stage 3 subtype: stage 3a (GFR 45-59) Qualified Code(s): N18.31 - Chronic kidney disease, stage 3a (2) HTN (hypertension): Code(s): I10 - Essential (primary) hypertension Qualifiers: Hypertension type: primary hypertension Qualified Code(s): I10 - Essential (primary) hypertension Hilda Araiza has stage III CKD likely from vascular disease. She does not have any significant proteinuria. Her blood pressure has been at goal. She is ronda ating angiotensin receptor tao. Her blood sugar needs to be consistently well controlled. She needs to lose weight. She avoids nonsteroidal inflammatory medications. She hydrates herself well. I have ordered follow-up blood work. She will be a candidate for [employer] or [employer] in the near future. I did not make any medication changes today. Follow-up appointment given. Orders: Orders Electrolytes 10/28/23 N18.9 - Chronic kidney disease, unspecified, I10 - Essential (primary) hypertension Blood Urea Nitrogen 10/28/23 N18.9 - Chronic kidney disease, unspecified, I10 - Essential (primary) hypertension Creatinine 10/28/23 N18.9 - Chronic kidney disease, unspecified, I10 - Essential (primary) hypertension Calcium 10/28/23 N18.9 - Chronic kidney disease, unspecified, I10 - Essential (primary) hypertension Protein Creatinine Ratio, Ur 10/28/23 N18.9 - Chronic kidney disease, unspecified, I10 - Essential (primary) hypertension Coding Level of Care Code Est Pt Level 4 (96410) Diagnoses Chronic renal impairment, stage 3a N18.31 Chronic kidney disease stage: stage 3 (moderate) Chronic kidney disease stage 3 subtype: stage 3a (GFR 45-59) Primary hypertension I10 Hypertension type: primary hypertension Results Reviewed Nephrology Results: Hgb 11.8 g/dl (12.0-16.0) L 10/10/23 WBC 6.0 X10*3/uL (4.8-10.8) 10/10/23 Plt Count 230 X10*3/uL (160-400) 10/10/23 Sodium 131 mmol/L (135-145) L 10/10/23 Potassium 4.3 mmol/L (3.3-5.1) 10/10/23 Chloride 97 mmol/L (96-108) 10/10/23 Carbon Dioxide 27 mmol/L (22-29) 10/10/23 BUN 11 mg/dL (9-16) 10/10/23 Creatinine 1.10 mg/dL (0.5-1.4) 10/10/23 Calcium 9.8 mg/dL (8.4-10.2) 10/10/23
[2023-10-28 11:51] VITALS: BP 100/70; PULSE 60; BMI 26.9
== END 2023-10-28 12:10 | disposition home or self-care (01) ==
PROVIDERS: PCP Internal Medicine; Visit Provider Internal Medicine Nephrology
DX: N18.31 Chronic kidney disease, stage 3a (principal); I10 Essential (primary) hypertension
CPT/HCPCS: 99214

== ENCOUNTER → 2023-10-28 10:55 | Outpatient (BNVA) | payer OTHER, SELFPAY | PROVIDERS: PCP Internal Medicine; Visit Provider Internal Medicine Nephrology | DX: I12.9 Hypertensive chronic kidney disease with stage 1 through stage 4 chronic kidney disease, or unspecified chronic kidney disease (principal); N18.31 Chronic kidney disease, stage 3a | CPT/HCPCS: 99212 ==

== ENCOUNTER 2024-01-06 13:47 | Outpatient (REF) | payer OTHER, SELFPAY ==
[2024-01-06 15:02] LABS: Estimated Average Glucose 137 mg/dL; Hemoglobin A1c % 6.4 % (<6.0)
[2024-01-06 15:03] LABS: Alanine Aminotransferase 21 U/L (0-31); Albumin Level 4.2 g/dL (3.5-5.0); Alkaline Phosphatase 90 U/L (39-117); Anion Gap 13 (12-20); Aspartate Amino Transferase 20 U/L (5-31); Bilirubin Total 0.2 mg/dL (0.0-1.0); Blood Urea Nitrogen 13 mg/dL (9-16); Calcium 10.2 mg/dL (8.4-10.2); Carbon Dioxide 28 mmol/L (22-29); Chloride 100 mmol/L (96-108); Estimated Glomerular Filt Rate 52; Glucose Random 116 mg/dL (60-115); Potassium 4.1 mmol/L (3.3-5.1); Sodium 137 mmol/L (135-145); Total Protein 8.1 g/dL (6.5-8.0)
== END 2024-01-06 13:48 | disposition home or self-care (01) ==
LOC: HO.LAB 13:47
PROVIDERS: PCP Internal Medicine; Visit Provider Internal Medicine
DX: E11.9 Type 2 diabetes mellitus without complications (principal); E78.00 Pure hypercholesterolemia, unspecified; G47.33 Obstructive sleep apnea (adult) (pediatric)
CPT/HCPCS: 36415; 80053; 83036

== ENCOUNTER 2024-01-25 12:29 | Outpatient (REF) | payer OTHER, SELFPAY ==
[2024-01-25 14:42] LABS: Anion Gap 10 (12-20); Blood Urea Nitrogen 13 mg/dL (9-16); Calcium 10.1 mg/dL (8.4-10.2); Carbon Dioxide 30 mmol/L (22-29); Chloride 98 mmol/L (96-108); Estimated Glomerular Filt Rate 57; Sodium 134 mmol/L (135-145)
[2024-01-25 14:54] LABS: Creatinine Urine 168.06 mg/dL; Protein/Creatinine Ratio, Ur 0.11 (<0.2); Total Protein Urine Random 19 mg/dL (<12)
== END 2024-01-25 12:30 | disposition home or self-care (01) ==
LOC: HO.LAB 12:29
PROVIDERS: PCP Internal Medicine; Visit Provider Internal Medicine Nephrology
DX: I12.9 Hypertensive chronic kidney disease with stage 1 through stage 4 chronic kidney disease, or unspecified chronic kidney disease (principal); N18.31 Chronic kidney disease, stage 3a
CPT/HCPCS: 36415; 80051; 82310; 82565; 82570; 84156; 84520; 99212

== ENCOUNTER 2024-01-25 13:14 | Outpatient (AMB) | payer OTHER, SELFPAY ==
--- NOTE | 2024-01-25 13:22 | HO.NEPHOV ---
HPI HPI Comments History of Present Illness Details I had the privilege of seeing Teodora in follow-up of her chronic kidney disease and hypertension. She feels well. She denies any chest pain, shortness of breath, proximal nocturnal dyspnea, orthopnea, pedal edema, orthostatic symptoms, hematuria or hypoglycemia. Her blood sugar is well controlled. She avoids nonsteroidal and anti-inflammatories and maintain good hydration. she did not have any active complaints at the time of this office visit. [facility] Medical History (Updated 11/07/23 @ 22:46 by Chris Khan MD) Trigeminal neuralgia Elevated cholesterol Angina pectoris Aortic dilatation Depression Chronic renal insufficiency Sleep apnea Fibromyalgia Osteoarthritis of knee Arthritis Diabetes HTN (hypertension) Asthma Surgical History History of carpal tunnel release Hx of cardiac catheterization H/O colonoscopy History of pubovaginal sling Social History Alcohol intake: former Year quit: 2007 Patient Tobacco Use Status: Former Tobacco user Quit Date: 2007 Vital Signs 01/25/24 13:23 Height 5 ft 9 in Weight 178 lb 8 oz BMI 26.4 BP 94/64 Blood Pressure Location Rt brachial Position Sitting Pulse 59 Pulse Source Pulse Oximeter Pulse Oximetry (%) 96 Oxygen Delivery Method Room Air Physical Exam Vital Signs: Last Vital Signs Pulse 59 01/25/24 13:23 BP 94/64 01/25/24 13:23 Pulse Ox 96 01/25/24 13:23 Oxygen Delivery Method Room Air 01/25/24 13:23 BMI result Body Mass Index 26.4 Const General: comfortable and no acute distress Orientation/consciousness: patient oriented x3 HEENT Head: Yes normocephalic Mouth: Normal oral and palatal mucosa present Eyes EOM: EOMs intact bilaterally Neck Neck: Yes supple Resp Auscultation: clear to auscultation bilaterally Cardio Jugular venous distension: no JVD Rate: regular rate GI Palpation (GI): Soft to palpation Auscultation: normal bowel sounds General: Yes no CVA tenderness Back/Spine/Pelvis Back: no CVA tenderness Skin General skin exam: no rashes or lesions noted Neuro General: patient oriented x3 and moves all extremities Assessment & Plan Assessment & Plan (1) HTN (hypertension): Code(s): I10 - Essential (primary) hypertension Qualifiers: Hypertension type: primary hypertension Qualified Code(s): I10 - Essential (primary) hypertension (2) Chronic renal insufficiency: Comment: stage 3 Code(s): N18.9 - Chronic kidney disease, unspecified Qualifiers: Chronic kidney disease stage: stage 3 (moderate) Chronic kidney disease stage 3 subtype: stage 3a (GFR 45-59) Qualified Code(s): N18.31 - Chronic kidney disease, stage 3a Hilda Araiza has stage III CKD likely from vascular disease. Her renal functions are stable. She does not have any significant proteinuria. Her blood pressure has been at goal. She is tolerating angiotensin receptor tao. Her blood sugar needs to be consistently well controlled. She needs to lose weight. She avoids nonsteroidal inflammatory medications. She hydrates herself well. She will be a candidate for [employer] or [employer] in the near future. She is on ARB. I did not make any medication changes today. Follow-up appointment given. Coding Level of Care Code Est Pt Level 3 (59808) Diagnoses Primary hypertension I10 Hypertension type: primary hypertension Chronic renal impairment, stage 3a N18.31 Chronic kidney disease stage: stage 3 (moderate) Chronic kidney disease stage 3 subtype: stage 3a (GFR 45-59) Results Reviewed Nephrology Results: Hgb 11.8 g/dl (12.0-16.0) L 10/10/23 WBC 6.0 X10*3/uL (4.8-10.8) 10/10/23 Plt Count 230 X10*3/uL (160-400) 10/10/23 Sodium 137 mmol/L (135-145) 01/06/24 Potassium 4.1 mmol/L (3.3-5.1) 01/06/24 Chloride 100 mmol/L (96-108) 01/06/24 Carbon Dioxide 28 mmol/L (22-29) 01/06/24 BUN 13 mg/dL (9-16) 01/06/24 Creatinine 1.05 mg/dL (0.5-1.4) 01/06/24 Calcium 10.2 mg/dL (8.4-10.2) 01/06/24 Urine Creatinine 133.85 mg/dL 10/10/23
[2024-01-25 13:23] VITALS: BP 94/64; PULSE 59; O2SAT 96; BMI 26.4
== END 2024-01-25 13:37 | disposition home or self-care (01) ==
PROVIDERS: PCP Internal Medicine; Visit Provider Internal Medicine Nephrology
DX: I10 Essential (primary) hypertension (principal); N18.31 Chronic kidney disease, stage 3a
CPT/HCPCS: 99213

== ENCOUNTER 2024-02-08 11:34 | Outpatient (AMB) | payer OTHER, SELFPAY ==
[2024-02-08 11:41] VITALS: BMI 26.3
--- NOTE | 2024-02-08 11:41 | A.OFFVIS_ITS ---
Intake Vital Signs 02/08/24 11:41 Height 5 ft 9 in Weight 178 lb BMI 26.3 Intake Visit Reasons: O/VS/P L CTR,Cub,Deqvain1/05/13 Intake Note: Teodora 67 yr old female presents today for her follow up visit for her S/P Left CTR, cubital and dequervains repair from 11/26/22. States she his having sensitivity on her incision. Also states she has done too much heavy lifting and is having increase of pain on her wrist. Allergies NILSA Inhibitors Adverse Reaction (Intermediate, Verified 02/08/24 12:00) Cough HPI O/VS/P L CTR,Cub,Deqvain1/05/13 HPI Details Teodora is a 68 year old right hand dominant Maori speaking woman who returns with complaints of occasional pains over her various incision sites.. She complains of left wrist pain with heavy lifting activities, as well as pain in her elbow when she leans on a hard surface. She also complains of sensitivity and pain over all her incision sites. She also says she has pain that occasionally radiates up into her shoulder. She says she does at-home exercises and has not attended OT. She says she does not like OT because she gets tired . She has a hx of a left carpal tunnel release, cubital tunnel release, and 1st dorsal compartment release, DOS: 11/26/22. She says her sensation is much better, and the pain in the radial aspect of her wrist is also much better [facility] Medical History (Updated 11/07/23 @ 22:46 by Chris Khan MD) Trigeminal neuralgia Elevated cholesterol Angina pectoris Aortic dilatation Depression Chronic renal insufficiency Sleep apnea Fibromyalgia Osteoarthritis of knee Arthritis Diabetes HTN (hypertension) Asthma Surgical History History of carpal tunnel release Hx of cardiac catheterization H/O colonoscopy History of pubovaginal sling Social History Alcohol intake: former Year quit: 2007 Patient Tobacco Use Status: Former Tobacco user Quit Date: 2007 Review of Systems Const All systems reviewed & are unremarkable except as noted in HPI and below Physical Exam Vital Signs: BMI result Body Mass Index 26.3 Const General: no acute distress and alert Orientation/consciousness: patient oriented x3 Neuro General: patient oriented x3 Extrem Other: Evaluation of Left Upper Extremity: The patient is alert, oriented, and in no acute distress All incisions are well healed with no swelling or erythema. Sensation is intact to the tips of all digits. She can make a fist and extend all of her digits with no locking or catching. Vascular: Cap refill brisk ROM: Full active elbow ROM Some mild tenderness to light touch over the carpal tunnel incision No tenderness over the 1st dorsal compartment Negative Scarlett test Not tender over the cubital tunnel incision which is well healed and has full elbow flexion and extension and prono-supination without pain. Psych Appearance: grossly normal Affect: normal affect Attitude: cooperative Assessment & Plan Assessment & Plan (1) Carpal tunnel syndrome of left wrist: Code(s): G56.02 - Carpal tunnel syndrome, left upper limb (2) Cubital tunnel syndrome on left: Code(s): G56.22 - Lesion of ulnar nerve, left upper limb (3) De Quervain's tenosynovitis, left: Code(s): M65.4 - Radial styloid tenosynovitis [de Quervain] (4) De Quervain's disease (radial styloid tenosynovitis): Comment: 11/2022 surgery on left Code(s): M65.4 - Radial styloid tenosynovitis [de Quervain] (5) Carpal tunnel syndrome on both sides: Comment: 11/2022 surgery on left Code(s): G56.03 - Carpal tunnel syndrome, bilateral upper limbs (6) Cubital tunnel syndrome of both upper extremities: Comment: surgery on left, 11/2022 Code(s): G56.23 - Lesion of ulnar nerve, bilateral upper limbs Plan Assessment & Plan: 1. Left Carpal Tunnel Syndrome, S/P release Pre-operative symptoms intermittent, but daily, worse at night Now with normal sensation 2. Left Cubital tunnel syndrome, S/P release Pre-operative symptoms intermittent, but daily, worse at night Now with normal sensation 3. Left De Quervain's Tenosynovitis, S/P release DOS: 11/26/22 Left radial wrist Pain significantly improved, Negative Scarlett test today She has some complaints of mild episodes of pain over her incision sites She is happy with the results of her surgery I discussed activity modification, she should work on ROM exercises at home and massage about her incision sites to improve her hypersensitivity I ordered OT hand therapy to work on desensitization training. She initially did not want to go to hand therapy, but I did point out that she was here today in clinic, and I think that some work with the hand therapist may provide improvement for these issues. She has agreed to go to OT. This point she can follow up p.r.n. Scribed for Jazlyn Christian MD by Daquan Uribe, medical accounts receivable specialist, on 02/08/24 at 12:15 PM, EST. Orders: Orders OT Evaluation and Treatment Today G56.03 - Carpal tunnel syndrome, bilateral upper limbs, G56.23 - Lesion of ulnar nerve, bilateral upper limbs, M65.4 - Radial styloid tenosynovitis [de Quervain] Coding Level of Care Code Est Pt Level 3 (90559) Diagnoses Carpal tunnel syndrome of left wrist G56.02 Cubital tunnel syndrome on left G56.22 De Quervain's tenosynovitis, left M65.4 De Quervain's disease (radial styloid tenosynovitis) M65.4 Carpal tunnel syndrome on both sides G56.03 Cubital tunnel syndrome of both upper extremities G56.23
== END 2024-02-08 12:27 | disposition home or self-care (01) ==
PROVIDERS: PCP Internal Medicine; Visit Provider Orthopaedic Surgery
DX: G56.22 Lesion of ulnar nerve, left upper limb (principal); M65.4 Radial styloid tenosynovitis [de Quervain]; G56.03 Carpal tunnel syndrome, bilateral upper limbs; G56.23 Lesion of ulnar nerve, bilateral upper limbs
CPT/HCPCS: 99213

== ENCOUNTER → 2024-02-08 11:34 | Outpatient (BNVA) | payer OTHER, SELFPAY | PROVIDERS: PCP Internal Medicine; Visit Provider Orthopaedic Surgery | DX: G56.03 Carpal tunnel syndrome, bilateral upper limbs (principal); M65.4 Radial styloid tenosynovitis [de Quervain]; G56.23 Lesion of ulnar nerve, bilateral upper limbs | CPT/HCPCS: 99212 ==

== ENCOUNTER 2024-02-14 09:51 | Outpatient (AMB) | payer OTHER, SELFPAY ==
[2024-02-14 10:01] VITALS: BP 120/80; PULSE 56; TEMP 36.1; O2SAT 95; BMI 26.9
--- NOTE | 2024-02-14 10:01 | A.OFFVIS_ITS ---
Intake Vital Signs 02/14/24 10:01 Height 5 ft 9 in Weight 181 lb 14.102 oz BMI 26.9 BP 120/80 Blood Pressure Location Rt brachial Position Sitting Pulse 56 Pulse Source Pulse Oximeter Temp 97 F Temp Source Skin Pulse Oximetry (%) 95 Oxygen Delivery Method Room Air Intake Visit Reasons: oa/fm with float remover/LVM Intake Note: Patient last seen 10/20/[address] Hugo, presents today for follow up. c/o left shoulder pain x long time c/o left knee swelling x 2 wks Metalworking Instructor Required: Yes Metalworking Instructor Language: Proof Tester Name: Heri [id number] Information Interpreted: clinical only Accompanied by: Significant Other Allergies NILSA Inhibitors Adverse Reaction (Intermediate, Verified 02/14/24 10:09) Cough HPI HPI Comments History of Present Illness Details Ms. Araiza 68-year-old female returns for follow-up of her widespread pains due to fibromyalgia and osteoarthritis. She is accompanied by her today. She complains of pain in the neck, left shoulder, right shoulder, lower back, lateral hips, knees and feet. Most problematic seems to be the left shoulder and the left knee. She received a corticosteroid injection in the left shoulder last visit and said that it was helpful for about 2 months and would like another injection today. The knees are more painful with standing or walking. She does have on her list Tylenol ER 650 mg q.8 hours, duloxetine 60 mg daily, acetaminophen p.r.n., and gabapentin 300 mg t.i.d.. She denies any sedation with her medications. [facility] Medical History (Updated 02/14/24 @ 16:48 by JOSE Gamez-DONNA) Left anterior shoulder pain Trigeminal neuralgia Elevated cholesterol Angina pectoris Aortic dilatation Depression Chronic renal insufficiency Sleep apnea Fibromyalgia Osteoarthritis of knee Arthritis Diabetes HTN (hypertension) Asthma Surgical History History of carpal tunnel release Hx of cardiac catheterization H/O colonoscopy History of pubovaginal sling Social History Alcohol intake: former Year quit: 2007 Patient Tobacco Use Status: Former Tobacco user Quit Date: 2007 Review of Systems Const All systems reviewed & are unremarkable except as noted in HPI and below Physical Exam Vital Signs: Last Vital Signs Temp 97 F 02/14/24 10:01 Pulse 56 02/14/24 10:01 BP 120/80 02/14/24 10:01 Pulse Ox 95 02/14/24 10:01 Oxygen Delivery Method Room Air 02/14/24 10:01 BMI result Body Mass Index 26.9 Vital signs reviewed. Constitutional: Non-toxic appearing. No acute distress. Well-developed and well-nourished. HEENT: Normocephalic and atraumatic. External auditory canals without erythema or edema bilaterally. Skin: Warm and dry. No rashes or lesions noted. Cardio: Regular rate and rhythm. No murmurs, gallops, or rubs. No lower extremity edema. No JVD. Pulmonary: No respiratory distress. No accessory muscle usage. Musculoskeletal: Normal range of motion in joints throughout the body. No deformity or other signs of injury. Decreased range of motion to left arm able to not able to lift above approximate 110 degree. Neuro: Alert and oriented x4. Cranial nerves 2-12 grossly intact. No focal deficits appreciated. Office Procedures Joint Injection/Drain Joint Injection/Drain Details: left acromioclavicular joint of the left shoulder injected Primary Site: left shoulder Prep: site was prepped using aseptic technique Injected: 40 mg of, Kenalog, with 1 mL of and 1% plain lidocaine Approach Used: anterolateral Procedure: The patient tolerated the procedure well Coding 66699 - Acromioclavicular Procedure code (CPT) selection complete Results Reviewed Results Reviewed: [place] [address] XRay Report Signed Patient: Teodora Martínez MR#: [id number] : 1955 Acct:[id number] Age/Sex: 66 / F ADM Date: 01/25/[address]: Rahul Hugo MD Ordering Physician: Rahul Hugo MD Date of Service: 01/25/22 Procedure(s): XR knee RT 2V Accession Number(s): [id number] cc: Rahul Hugo MD~ EXAMINATION: XR KNEE, RIGHT XR KNEE, LEFT CLINICAL INFORMATION: M25.9 - Joint disorder, unspecified? COMPARISON: Radiographs right knee 10/05/2011, radiographs left knee 03/24/2017? TECHNIQUE: Each knee is imaged in standing AP and lateral views. There are 2 views on each side.? FINDINGS: Right: Normal bony mineralization. No acute or healing fracture, dislocation, destructive process. There is mild thickening suprapatellar bursa consistent with small effusion. Hoffa's fat pad appears normal. There is an old sclerotic bone island in the proximal tibia similar to prior exam 2010. 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 Mild spurring at quadriceps insertion patella. There is mild genu valgus similar to prior exam. No joint narrowing or erosive change or chondrocalcinosis. Left: Normal bony mineralization. No acute or healing fracture, dislocation, destructive process. No suprapatellar effusion. Hoffa's fat pad appears normal. 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 There is mild genu valgus. No joint narrowing or erosive change or chondrocalcinosis. There is ossification in region of the proximal medial collateral ligament measuring 0.4 cm thickness by 1.7 cm in length, new finding since 2017, and likely related to chronic injury proximal MCL. XR/XR knee RT 2V IMPRESSION: Right: -Mild genu valgus. No joint narrowing or erosive change. Trace suprapatellar fluid. -Probable bipartite patella, stable. Spurring quadriceps insertion patella. -Old bone island proximal tibia. ? Left: -Mild genu valgus. No joint narrowing or erosive change or effusion. -Bipartite patella, stable. Spurring quadriceps insertion patella. -New ossification in region of proximal MCL, likely related to remote injury. ? Dictated By: Kumar Rios MD EXAMINATION: XR ANKLE, LEFT CLINICAL INFORMATION: Pain in left ankle and joints of foot COMPARISON: 07/15/2015 TECHNIQUE: AP, lateral, and mortise views of the left ankle. FINDINGS: Radiopaque marker placed to indicate area of concern indicated by the patient at the lateral aspect of the ankle. Soft tissue swelling with joint effusion at the ankle. Vascular calcifications. Prominent plantar and dorsal calcaneal spurring. No acute displaced fracture. XR/XR ankle LT min 3V IMPRESSION: Prominent plantar and dorsal calcaneal spurring. No acute displaced fracture. Recommend follow-up imaging in 10-14 days if fracture is suspected. Assessment & Plan Assessment & Plan (1) Cervical osteoarthritis: Code(s): M47.812 - Spondylosis without myelopathy or radiculopathy, cervical region Qualifiers: Spinal osteoarthritis complication: with radiculopathy Qualified Code(s): M47.22 - Other spondylosis with radiculopathy, cervical region (2) Tendinitis of left rotator cuff: Code(s): M75.82 - Other shoulder lesions, left shoulder (3) Osteoarthritis of knee: Code(s): M17.10 - Unilateral primary osteoarthritis, unspecified knee Qualifiers: Osteoarthritis type: primary Laterality: bilateral Qualified Code(s): M17.0 - Bilateral primary osteoarthritis of knee (4) Fibromyalgia: Code(s): M79.7 - Fibromyalgia (5) Left anterior shoulder pain: Code(s): M25.512 - Pain in left shoulder Plan # left shoulder pain: The left shoulder has painful range of motion consistent with rotator cuff tendinitis. She wants a and I local injection there since she had good luck with previous injections in the bursae of the hips. We reviewed potential side effects of such injections. She will rest the area for a few days and then begin some gentle, [id number] exercises which I demonstrated in the office. #OA multiple joint: Multiple images supports osteoarthritis to multiple joints - neck, shoulder, hands and knees. She has been dealing with these pains for over 10 years. She declines physical therapy. She will continue to use acetaminophen ER 650 mg q.8 hours p.r.n. which she finds helpful. With the many tender points she has some elements of fibromyalgia as well. She is already on an antidepressant and gabapentin so those can be continued. In reviewing her lab work she did have elevated CRP and ESR dating back 3 years. I will do an updated lab analysis to see if that still remains. A follow-up in 6 months. I spent 40 minutes reviewing history, evaluating patient, and documenting Orders: Orders C Reactive Protein Today M25.512 - Pain in left shoulder, M25.9 - Joint disorder, unspecified, M75.82 - Other shoulder lesions, left shoulder AMB Joint Injection/Aspiration Today M25.512 - Pain in left shoulder, M75.82 - Other shoulder lesions, left shoulder Comprehensive Met. Panel Today M25.512 - Pain in left shoulder, M25.9 - Joint disorder, unspecified, M75.82 - Other shoulder lesions, left shoulder Complete Blood Count Auto Diff Today M25.512 - Pain in left shoulder, M25.9 - Joint disorder, unspecified, M75.82 - Other shoulder lesions, left shoulder Erythrocyte Sedimentation Rate Today M25.512 - Pain in left shoulder, M25.9 - Joint disorder, unspecified, M75.82 - Other shoulder lesions, left shoulder Rheumatoid Factor Today M25.512 - Pain in left shoulder, M25.9 - Joint disorder, unspecified, M75.82 - Other shoulder lesions, left shoulder Cyclic Citrullinated Peptide Today M25.512 - Pain in left shoulder, M25.9 - Joint disorder, unspecified, M75.82 - Other shoulder lesions, left shoulder Coding Level of Care Code Est Pt Level 4 (39101) Diagnoses Osteoarthritis of spine with radiculopathy, cervical region M47.22 Spinal osteoarthritis complication: with radiculopathy Tendinitis of left rotator cuff M75.82 Primary osteoarthritis of both knees M17.0 Osteoarthritis type: primary Laterality: bilateral Fibromyalgia M79.7 Left anterior shoulder pain M25.512 CPT Codes Coding - Joint 5: 39023 - Acromioclavicular ([id number])
== END 2024-02-14 10:51 | disposition home or self-care (01) ==
PROVIDERS: PCP Internal Medicine; Visit Provider Nurse Practitioner Family
DX: M47.22 Other spondylosis with radiculopathy, cervical region (principal); M75.82 Other shoulder lesions, left shoulder; M17.0 Bilateral primary osteoarthritis of knee; M79.7 Fibromyalgia; M25.512 Pain in left shoulder
CPT/HCPCS: 20605; 99214

== ENCOUNTER → 2024-02-14 09:51 | Outpatient (BNVA) | payer OTHER, SELFPAY | PROVIDERS: PCP Internal Medicine; Visit Provider Nurse Practitioner Family | DX: M75.82 Other shoulder lesions, left shoulder (principal); M25.512 Pain in left shoulder; M79.7 Fibromyalgia; M47.22 Other spondylosis with radiculopathy, cervical region; M19.90 Unspecified osteoarthritis, unspecified site; M17.0 Bilateral primary osteoarthritis of knee; M25.9 Joint disorder, unspecified | CPT/HCPCS: 20605; 99212 ==

== ENCOUNTER 2024-06-18 12:32 | Outpatient (REF) | payer OTHER, SELFPAY ==
[2024-06-18 12:50] LABS: MANUAL DIFF FLAG NO
[2024-06-18 14:02] LABS: Basophils Absolute Auto 0.1 X10*3/uL (0.0-0.2); Basophils Percent Auto 1.2 % (0-2); Eosinophils Absolute Auto 0.2 X10*3/uL (0.0-0.4); Eosinophils Percent Auto 3.4 % (0-4); Hematocrit 36.7 % (37.0-47.0); Hemoglobin 11.7 g/dl (12.0-16.0); Imm Gran Abs Auto 0.02 X10*3/uL (0.00-0.03); Imm Gran Pct Auto 0.3 % (0.0-0.4); Lymphocytes Absolute Auto 1.4 X10*3/uL (1.2-4.9); Lymphocytes Percent Auto 24.6 % (20-40); Mean Corpuscular HGB Conc 31.9 g/dl (31.0-35.0); Mean Corpuscular Hemoglobin 26.5 pg (27.0-33.0); Mean Platelet Volume 11.3 fL (9.4-12.3); Monocytes Absolute Auto 0.4 X10*3/uL (0.1-1.2); Monocytes Percent Auto 6.7 % (2-11); Neutrophils Absolute Auto 3.7 x10*3/uL (2.0-8.3); Neutrophils Percent Auto 63.8 % (45-73); Platelet Count 294 X10*3/uL (160-400); Red Blood Count 4.42 X10*6/uL (4.20-5.50); Red Cell Distribution Width 13.5 % (11.0-16.0); White Blood Count 5.8 X10*3/uL (4.8-10.8)
[2024-06-18 14:45] LABS: Alanine Aminotransferase 24 U/L (0-31); Albumin Level 4.3 g/dL (3.5-5.0); Alkaline Phosphatase 92 U/L (39-117); Anion Gap 12 (12-20); Aspartate Amino Transferase 25 U/L (5-31); Bilirubin Total 0.3 mg/dL (0.0-1.0); Blood Urea Nitrogen 14 mg/dL (9-16); C Reactive Protein 0.88 mg/dL (< or = 0.50); Calcium 9.7 mg/dL (8.4-10.2); Carbon Dioxide 27 mmol/L (22-29); Chloride 104 mmol/L (96-108); Estimated Glomerular Filt Rate 50; Glucose Random 125 mg/dL (60-115); Potassium 3.8 mmol/L (3.3-5.1); Sodium 139 mmol/L (135-145); Total Protein 7.8 g/dL (6.5-8.0)
[2024-06-18 14:48] LABS: Erythrocyte Sedimentation Rate 34 MM/HR (0-20); Rheumatoid Factor 14.7 IU/mL (<15.0)
[2024-06-18 15:37] LABS: Creatinine Urine 205.86 mg/dL; Protein/Creatinine Ratio, Ur 0.21 (<0.2); Total Protein Urine Random 43 mg/dL (<12)
[2024-06-18 16:06] LABS: Anion Gap 13 (12-20); Blood Urea Nitrogen 14 mg/dL (9-16); Calcium 9.8 mg/dL (8.4-10.2); Carbon Dioxide 29 mmol/L (22-29); Chloride 102 mmol/L (96-108); Estimated Glomerular Filt Rate 49; Potassium 4.2 mmol/L (3.3-5.1); Sodium 140 mmol/L (135-145)
[2024-06-20 14:53] LABS: Cyclic Citrullinated Peptide <16 UNITS
== END 2024-06-18 12:33 | disposition home or self-care (01) ==
LOC: HO.LAB 12:32
PROVIDERS: Nurse Practitioner Family; Absent Provider Internal Medicine; PCP Internal Medicine; Visit Provider Internal Medicine Nephrology
DX: I12.9 Hypertensive chronic kidney disease with stage 1 through stage 4 chronic kidney disease, or unspecified chronic kidney disease (principal); E11.22 Type 2 diabetes mellitus with diabetic chronic kidney disease; N18.9 Chronic kidney disease, unspecified; M75.82 Other shoulder lesions, left shoulder; M25.9 Joint disorder, unspecified; M25.512 Pain in left shoulder; J45.909 Unspecified asthma, uncomplicated; R32 Unspecified urinary incontinence
CPT/HCPCS: 36415; 80051; 80053; 82310; 82565; 82570; 84156; 84520; 85025; 85652; 86140; 86200; 86431

== ENCOUNTER 2024-06-22 11:38 | Outpatient (AMB) | payer OTHER, SELFPAY ==
--- NOTE | 2024-06-22 11:46 | HO.NEPHOV ---
Vital Signs 06/22/24 11:49 Height 5 ft 4 in Weight 175 lb BMI 30.0 BP 102/70 Blood Pressure Location Rt brachial Position Sitting Pulse 67 Pulse Source Pulse Oximeter Pulse Oximetry (%) 95 Oxygen Delivery Method Room Air Intake Visit Reasons: 4 Months/ Conf Hot Header Operator Required: Yes Hot Header Operator Services: Hot Header Operator Present Hot Header Operator Name: [id number] [id number] Accompanied by: Self / Same As Patient Allergies NILAS Inhibitors Adverse Reaction (Intermediate, Verified 06/22/24 11:51) Cough metformin Adverse Reaction (Verified 06/22/24 11:51) Abdominal Pain, (in higher doses) HPI Comments Details: I had the privilege of seeing Teodora in follow-up of her chronic kidney disease and hypertension. She feels well. She denies any chest pain, shortness of breath, proximal nocturnal dyspnea, orthopnea, pedal edema, orthostatic symptoms, hematuria or hypoglycemia. Her blood sugar is well controlled. She avoids nonsteroidal and anti-inflammatories and maintain good hydration. She is getting cataract surgery this coming Tuesday. she did not have any active complaints at the time of this office visit. [facility] Medical History (Updated 06/20/24 @ 16:06 by Rosa Navarro RN) Seasonal allergies Hx of cancer of uterus CAD (coronary artery disease) Cataract Left anterior shoulder pain Trigeminal neuralgia Elevated cholesterol Angina pectoris Aortic dilatation Depression Chronic renal insufficiency Sleep apnea Fibromyalgia Osteoarthritis of knee Arthritis Diabetes HTN (hypertension) Asthma Surgical History S/P DEION-BSO (total abdominal hysterectomy and bilateral salpingo-oophorectomy) (~1998) History of carpal tunnel release Hx of cardiac catheterization H/O colonoscopy History of pubovaginal sling Social History Are you a primary customer care associate to a significant other at home: No Do you presently have visiting nurse or other home services: No Alcohol intake: former Year quit: 2007 Patient Tobacco Use Status: Former Tobacco user Tobacco use type: Cigarette Physical Exam Vital Signs: Last Vital Signs Pulse 67 06/22/24 11:49 BP 102/70 06/22/24 11:49 Pulse Ox 95 06/22/24 11:49 Oxygen Delivery Method Room Air 06/22/24 11:49 BMI result Body Mass Index 30.0 Const General: comfortable and no acute distress Orientation/consciousness: patient oriented x3 HEENT Head: Yes normocephalic Mouth: Normal oral and palatal mucosa present Eyes EOM: EOMs intact bilaterally Neck Neck: Yes supple Resp Auscultation: clear to auscultation bilaterally Cardio Jugular venous distension: no JVD Rate: regular rate GI Palpation (GI): Soft to palpation Auscultation: normal bowel sounds General: Yes no CVA tenderness Back/Spine/Pelvis Back: no CVA tenderness Skin General skin exam: no rashes or lesions noted Neuro General: patient oriented x3 and moves all extremities Extrem General: Yes no pedal edema Results Reviewed Nephrology Results: Hgb 11.7 g/dl (12.0-16.0) L 06/18/24 WBC 5.8 X10*3/uL (4.8-10.8) 06/18/24 Plt Count 294 X10*3/uL (160-400) 06/18/24 Sodium 140 mmol/L (135-145) 06/18/24 Potassium 4.2 mmol/L (3.3-5.1) 06/18/24 Chloride 102 mmol/L (96-108) 06/18/24 Carbon Dioxide 29 mmol/L (22-29) 06/18/24 BUN 14 mg/dL (9-16) 06/18/24 Creatinine 1.12 mg/dL (0.5-1.4) 06/18/24 Calcium 9.8 mg/dL (8.4-10.2) 06/18/24 Urine Creatinine 205.86 mg/dL 06/18/24 Protein/Creatinin Ratio 0.21 (<0.2) H 06/18/24 Assessment & Plan Assessment & Plan (1) HTN (hypertension): Code(s): I10 - Essential (primary) hypertension Category: Medical Qualifiers: Hypertension type: primary hypertension Qualified Code(s): I10 - Essential (primary) hypertension (2) Chronic renal insufficiency: Comment: stage 3 Code(s): N18.9 - Chronic kidney disease, unspecified Category: Medical Qualifiers: Chronic kidney disease stage: stage 3 (moderate) Chronic kidney disease stage 3 subtype: stage 3a (GFR 45-59) Qualified Code(s): N18.31 - Chronic kidney disease, stage 3a Plan Teodora has stage III CKD likely from vascular disease. Her renal functions are stable. She does not have any significant proteinuria. Her blood pressure has been at goal. She is tolerating angiotensin receptor tao. Her blood sugar needs to be consistently well controlled. She needs to lose weight. She avoids nonsteroidal inflammatory medications. She hydrates herself well. She will be a candidate for Jardiance or Farxiga in the near future. She is on ARB. I did not make any medication changes today. Follow-up appointment given. Orders: Orders Blood Urea Nitrogen Today I10 - Essential (primary) hypertension, N18.31 - Chronic kidney disease, stage 3a Creatinine Today I10 - Essential (primary) hypertension, N18.31 - Chronic kidney disease, stage 3a Electrolytes Today I10 - Essential (primary) hypertension, N18.31 - Chronic kidney disease, stage 3a Calcium Today I10 - Essential (primary) hypertension, N18.31 - Chronic kidney disease, stage 3a Coding Level of Care Code Est Pt Level 4 (79341) Diagnoses Primary hypertension I10 Hypertension type: primary hypertension Chronic renal impairment, stage 3a N18.31 Chronic kidney disease stage: stage 3 (moderate) Chronic kidney disease stage 3 subtype: stage 3a (GFR 45-59)
[2024-06-22 11:49] VITALS: BP 102/70; PULSE 67; O2SAT 95
== END 2024-06-22 12:25 | disposition home or self-care (01) ==
PROVIDERS: PCP Internal Medicine; Visit Provider Internal Medicine Nephrology
DX: I10 Essential (primary) hypertension (principal); N18.31 Chronic kidney disease, stage 3a
CPT/HCPCS: 99214

== ENCOUNTER → 2024-06-22 11:38 | Outpatient (BNVA) | payer OTHER, SELFPAY | PROVIDERS: PCP Internal Medicine; Visit Provider Internal Medicine Nephrology | DX: I12.9 Hypertensive chronic kidney disease with stage 1 through stage 4 chronic kidney disease, or unspecified chronic kidney disease (principal); N18.31 Chronic kidney disease, stage 3a | CPT/HCPCS: 99212 ==

== ENCOUNTER 2024-06-25 08:42 | Day surgery (SDC) | payer OTHER, SELFPAY ==
[2024-04-19 08:57] VITALS: BMI 31.9
--- NOTE | 2024-04-19 13:28 | HO.ANESPROP2 ---
HPI - Anesthesia Eval Consult details Narrative: 68yo F for Right Cataract Extraction IOL Insertion No previous cataract on record PMFSH Active Problems Active Problems: All Active Problems Tendinitis of left rotator cuff (Acute) Cervical osteoarthritis (Acute) Neck ache (Acute) Ankle pain, left (Acute) Osteoarthritis of lumbar spine (Acute) Cubital tunnel syndrome of both upper extremities (Acute) Carpal tunnel syndrome on both sides (Acute) De Quervain's disease (radial styloid tenosynovitis) (Acute) Multiple joint complaints (Acute) Left anterior shoulder pain (Acute) HTN (hypertension) (Acute) Chronic renal insufficiency (Acute) Fibromyalgia (Acute) Osteoarthritis of knee (Acute) Past Medical History Medical History (Updated 04/03/24 @ 13:18 by Rosa Navarro, RN) Hx of cancer of uterus CAD (coronary artery disease) Cataract Left anterior shoulder pain Trigeminal neuralgia Elevated cholesterol Angina pectoris Aortic dilatation Depression Chronic renal insufficiency Sleep apnea Fibromyalgia Osteoarthritis of knee Arthritis Diabetes HTN (hypertension) Asthma Family History Family history of problems with anesthesia: No Surgical History Surgical History (Updated 04/03/24 @ 13:17 by Rosa Navarro RN) S/P DEION-BSO (total abdominal hysterectomy and bilateral salpingo-oophorectomy) (~1998) History of carpal tunnel release Hx of cardiac catheterization H/O colonoscopy History of pubovaginal sling History of Problems with Anesthesia: No Social History Social History Alcohol intake: former Year quit: 2007 Patient Tobacco Use Status: Former Tobacco user Meds Allergies Allergy/AdvReac Type Severity Reaction Status Date / Time NILSA Inhibitors AdvReac Intermediate Cough Verified 02/14/24 10:09 metformin AdvReac Abdominal Verified 04/03/24 13:19 Pain Home Medications ?Medication ?Instructions ?Recorded ?Confirmed ?Last Taken ?Type acetaminophen 650 mg 650 mg PO Q8H PRN Pain 01/25/22 04/19/24 Unknown History tablet,extended release (Arthritis Pain Relief (acetaminophen) ER) albuterol sulfate 90 mcg/actuation 2 puff inhalation Q6H PRN Wheezing 01/25/22 04/19/24 Unknown History aerosol inhaler (ProAir HFA) ascorbate calcium (vitamin C) 500 500 mg PO DAILY 01/25/22 04/19/24 Unknown History mg tablet aspirin 81 mg tablet,delayed 81 mg PO DAILY 01/25/22 04/19/24 Unknown History release (Adult Low Dose Aspirin) carbamazepine 200 mg 200 mg PO BID 01/25/22 04/19/24 Unknown History capsule,extended release [id number] duloxetine 60 mg capsule,delayed 60 mg PO DAILY 01/25/22 04/19/24 Unknown History release fluticasone propionate 110 2 puff inhalation BID 01/25/22 04/19/24 Unknown History mcg/actuation HFA aerosol inhaler (Flovent HFA) fluticasone propionate 50 1 spray intranasal DAILY 01/25/22 04/19/24 Unknown History mcg/actuation nasal spray,suspension (Flonase Allergy Relief) gabapentin 300 mg capsule 300 mg PO TID 01/25/22 04/03/24 Unknown History ketotifen fumarate 0.025 % (0.035 1 drp ophthalmic (eye) BID 01/25/22 04/19/24 Unknown History %) eye drops lorazepam 1 mg tablet 1 mg PO BEDTIME 01/25/22 04/19/24 Unknown History metoprolol succinate 200 mg 200 mg PO DAILY 01/25/22 04/19/24 Unknown History tablet,extended release 24 hr sennosides 8.6 mg-docusate sodium 2 tab-cap PO BEDTIME 01/25/22 04/19/24 Unknown History 50 mg tablet (Senexon-S) folic acid 1 mg tablet 1 mg PO QAM 07/12/22 04/19/24 Unknown History metformin 750 mg tablet,extended 750 mg PO BID 07/12/22 04/19/24 Unknown History release 24 hr losartan 100 1 tab PO QAM 07/11/23 04/19/24 Unknown History mg-hydrochlorothiazide 25 mg tablet rosuvastatin 40 mg tablet 40 mg PO BEDTIME 07/11/23 04/19/24 Unknown History ezetimibe 10 mg tablet 10 mg PO DAILY 10/20/23 04/19/24 Unknown History nitroglycerin 0.4 mg sublingual 0.4 mg sublingual .Q5MINS PRN 10/20/23 04/19/24 Unknown History tablet Chest Pain omeprazole 20 mg capsule,delayed 20 mg PO DAILY 10/20/23 04/19/24 Unknown History release albuterol sulfate 2.5 mg/3 mL 2.5 mg inhalation Q4-6H PRN 04/03/24 04/19/24 Unknown History (0.083 %) solution for nebulization Shortness Of Breath Or Wheezing cetirizine 10 mg tablet 10 mg PO DAILY 04/03/24 04/19/24 Unknown History ibuprofen 600 mg tablet 600 mg PO TID 04/03/24 04/19/24 Unknown History meloxicam 15 mg tablet 15 mg PO DAILY 04/03/24 04/19/24 Unknown History pyridoxine (vitamin B6) 50 mg 50 mg PO DAILY 04/03/24 04/19/24 Unknown History capsule (Vitamin B-6) tolterodine 2 mg tablet (Detrol) 4 mg PO DAILY 04/03/24 04/19/24 Unknown History Exam Height,Weight and Vital Signs: Height 5 ft 4 in Weight 84.368 kg Assessment and Plan Assessment Anesthesia Assessment: Chart Reviewed Final Anesthetic Review Family History of Problems with Anesthesia: No History of Problems with Anesthesia: No
[2024-06-20 16:21] VITALS: BMI 29.2
--- NOTE | 2024-06-21 15:35 | HO.ANESPROP2 ---
Documented by User: Melva Kelley NP 06/21/24 15:36 HPI - Anesthesia Eval Consult details Narrative: 68yo F for Right Cataract Extraction IOL Insertion No previous cataract on record PMFSH Active Problems Active Problems: All Active Problems Tendinitis of left rotator cuff (Acute) Cervical osteoarthritis (Acute) Neck ache (Acute) Ankle pain, left (Acute) Osteoarthritis of lumbar spine (Acute) Cubital tunnel syndrome of both upper extremities (Acute) Carpal tunnel syndrome on both sides (Acute) De Quervain's disease (radial styloid tenosynovitis) (Acute) Multiple joint complaints (Acute) Left anterior shoulder pain (Acute) HTN (hypertension) (Acute) Chronic renal insufficiency (Acute) Fibromyalgia (Acute) Osteoarthritis of knee (Acute) Past Medical History Medical History Seasonal allergies Hx of cancer of uterus CAD (coronary artery disease) Cataract Left anterior shoulder pain Trigeminal neuralgia Elevated cholesterol Angina pectoris Aortic dilatation Depression Chronic renal insufficiency Sleep apnea Fibromyalgia Osteoarthritis of knee Arthritis Diabetes HTN (hypertension) Asthma Family History Family history of problems with anesthesia: No Surgical History Surgical History S/P DEION-BSO (total abdominal hysterectomy and bilateral salpingo-oophorectomy) (~1998) History of carpal tunnel release Hx of cardiac catheterization H/O colonoscopy History of pubovaginal sling History of Problems with Anesthesia: No Social History Social History Are you a primary care transition manager to a significant other at home: No Do you presently have visiting nurse or other home services: No Alcohol intake: former Year quit: 2007 Patient Tobacco Use Status: Former Tobacco user Tobacco use type: Cigarette Smoked in Last 30 Days: No Use of substances other than those prescribed or required for medical reasons: No Have you been hit, kicked, punched, or otherwise hurt by someone within the past year? If so, by whom?: No Are you DNR?: No Advance Directives: No Advance Directives Information Provided: Yes Advance Directives on File: No Recently lost weight without trying: No Nutrition Risks: No Nutritional Risk Poor oral hygiene: No Meds Allergies Allergy/AdvReac Type Severity Reaction Status Date / Time NILSA Inhibitors AdvReac Intermediate Cough Verified 06/22/24 11:51 metformin AdvReac Abdominal Verified 06/22/24 11:51 Pain, (in higher doses) Home Medications ?Medication ?Instructions ?Recorded ?Confirmed ?Last Taken ?Type acetaminophen 650 mg 650 mg PO Q8H PRN Pain 01/25/22 06/20/24 Unknown History tablet,extended release (Arthritis Pain Relief (acetaminophen) ER) albuterol sulfate 90 mcg/actuation 2 puff inhalation Q6H PRN Wheezing 01/25/22 06/20/24 Unknown History aerosol inhaler (ProAir HFA) aspirin 81 mg tablet,delayed 81 mg PO DAILY 01/25/22 06/20/24 Unknown History release (Adult Low Dose Aspirin) carbamazepine 200 mg 200 mg PO BID 01/25/22 06/20/24 Unknown History capsule,extended release [id number] duloxetine 60 mg capsule,delayed 60 mg PO DAILY 01/25/22 06/20/24 Unknown History release fluticasone propionate 110 2 puff inhalation BID 01/25/22 06/20/24 Unknown History mcg/actuation HFA aerosol inhaler (Flovent HFA) gabapentin 300 mg capsule 300 mg PO TID 01/25/22 06/20/24 Unknown History lorazepam 1 mg tablet 1 mg PO BEDTIME 01/25/22 06/20/24 Unknown History metoprolol succinate 200 mg 200 mg PO DAILY 01/25/22 06/20/24 Unknown History tablet,extended release 24 hr folic acid 1 mg tablet 1 mg PO QAM 07/12/22 06/20/24 Unknown History metformin 750 mg tablet,extended 750 mg PO BID 07/12/22 06/20/24 Unknown History release 24 hr losartan 100 1 tab PO QAM 07/11/23 06/20/24 Unknown History mg-hydrochlorothiazide 25 mg tablet rosuvastatin 40 mg tablet 40 mg PO BEDTIME 07/11/23 06/20/24 Unknown History ezetimibe 10 mg tablet 10 mg PO DAILY 10/20/23 06/20/24 Unknown History nitroglycerin 0.4 mg sublingual 0.4 mg sublingual .Q5MINS PRN 10/20/23 06/20/24 Unknown History tablet Chest Pain omeprazole 20 mg capsule,delayed 20 mg PO DAILY 10/20/23 06/20/24 Unknown History release albuterol sulfate 2.5 mg/3 mL 2.5 mg inhalation Q4-6H PRN 04/03/24 06/20/24 Unknown History (0.083 %) solution for nebulization Shortness Of Breath Or Wheezing amlodipine 5 mg tablet 5 mg PO DAILY 06/22/24 Unknown History ibuprofen 600 mg tablet 600 mg PO TID PRN 06/22/24 Unknown History Exam Height,Weight and Vital Signs: Height 5 ft 4 in Weight 77.111 kg Assessment and Plan Assessment Anesthesia Assessment: Chart Reviewed Final Anesthetic Review Family History of Problems with Anesthesia: No History of Problems with Anesthesia: No Documented by User: Shivani Callejas MD 06/25/24 10:08 [facility] Past Medical History Medical History Seasonal allergies Hx of cancer of uterus CAD (coronary artery disease) Cataract Left anterior shoulder pain Trigeminal neuralgia Elevated cholesterol Angina pectoris Aortic dilatation Depression Chronic renal insufficiency Sleep apnea Fibromyalgia Osteoarthritis of knee Arthritis Diabetes HTN (hypertension) Asthma Surgical History Surgical History S/P DEION-BSO (total abdominal hysterectomy and bilateral salpingo-oophorectomy) (~1998) History of carpal tunnel release Hx of cardiac catheterization H/O colonoscopy History of pubovaginal sling Social History Social History Are you a primary care transition manager to a significant other at home: No Do you presently have visiting nurse or other home services: No Alcohol intake: former Year quit: 2007 Patient Tobacco Use Status: Former Tobacco user Tobacco use type: Cigarette Smoked in Last 30 Days: No Use of substances other than those prescribed or required for medical reasons: No Have you been hit, kicked, punched, or otherwise hurt by someone within the past year? If so, by whom?: No Are you DNR?: No Advance Directives: No Advance Directives Information Provided: Yes Advance Directives on File: No Recently lost weight without trying: No Nutrition Risks: No Nutritional Risk Poor oral hygiene: No Meds Allergies Allergy/AdvReac Type Severity Reaction Status Date / Time NILSA Inhibitors AdvReac Intermediate Cough Verified 06/22/24 11:51 metformin AdvReac Abdominal Verified 06/22/24 11:51 Pain, (in higher doses) Home Medications ?Medication ?Instructions ?Recorded ?Confirmed ?Last Taken ?Type acetaminophen 650 mg 650 mg PO Q8H PRN Pain 01/25/22 06/20/24 Unknown History tablet,extended release (Arthritis Pain Relief (acetaminophen) ER) albuterol sulfate 90 mcg/actuation 2 puff inhalation Q6H PRN Wheezing 01/25/22 06/20/24 Unknown History aerosol inhaler (ProAir HFA) aspirin 81 mg tablet,delayed 81 mg PO DAILY 01/25/22 06/20/24 Unknown History release (Adult Low Dose Aspirin) carbamazepine 200 mg 200 mg PO BID 01/25/22 06/20/24 Unknown History capsule,extended release [id number] duloxetine 60 mg capsule,delayed 60 mg PO DAILY 01/25/22 06/20/24 Unknown History release fluticasone propionate 110 2 puff inhalation BID 01/25/22 06/20/24 Unknown History mcg/actuation HFA aerosol inhaler (Flovent HFA) gabapentin 300 mg capsule 300 mg PO TID 01/25/22 06/20/24 Unknown History lorazepam 1 mg tablet 1 mg PO BEDTIME 01/25/22 06/20/24 Unknown History metoprolol succinate 200 mg 200 mg PO DAILY 01/25/22 06/20/24 Unknown History tablet,extended release 24 hr folic acid 1 mg tablet 1 mg PO QAM 07/12/22 06/20/24 Unknown History metformin 750 mg tablet,extended 750 mg PO BID 07/12/22 06/20/24 Unknown History release 24 hr losartan 100 1 tab PO QAM 07/11/23 06/20/24 Unknown History mg-hydrochlorothiazide 25 mg tablet rosuvastatin 40 mg tablet 40 mg PO BEDTIME 07/11/23 06/20/24 Unknown History ezetimibe 10 mg tablet 10 mg PO DAILY 10/20/23 06/20/24 Unknown History nitroglycerin 0.4 mg sublingual 0.4 mg sublingual .Q5MINS PRN 10/20/23 06/20/24 Unknown History tablet Chest Pain omeprazole 20 mg capsule,delayed 20 mg PO DAILY 10/20/23 06/20/24 Unknown History release albuterol sulfate 2.5 mg/3 mL 2.5 mg inhalation Q4-6H PRN 04/03/24 06/20/24 Unknown History (0.083 %) solution for nebulization Shortness Of Breath Or Wheezing amlodipine 5 mg tablet 5 mg PO DAILY 06/22/24 Unknown History ibuprofen 600 mg tablet 600 mg PO TID PRN 06/22/24 Unknown History Exam Airway Mallampati Class: II TM Dist: >3cm Neck ROM: Full Heart: rrr Lungs: cta Assessment and Plan Assessment Anesthesia Assessment: Anesthesia Plan Discussed Final Anesthetic Review NPO: Yes ASA Class: III Final Preanesthetic Review: No Changes in Pt Med Stat, Meds/Allgs Chart Reviewed, Consent Obtained/Reviewed and Anes Risks/Benef Reviewed Patient Risk: Intermediate Procedure Risk: Low Anesthetic Plan Anesthetic Plan: MAC: Disposition: Standard PACU
--- OUTSIDE RECORDS SUMMARY | 2024-06-25 08:46 | XMS_ITS ---
Author Organization [facility] Address [address] [place] [address] Care Team Providers Care Dead Mail Checker Name Role Phone Madeline Chen Primary Care Provider Unavailab Patrick Barone Unavailable [phone] REASON FOR VISIT fyi Encounters Encounter Location Date Provider Diagnosis [facility] [address] [place] [address] 05/03/2024 Patrick Rukcer PLAN OF TREATMENT Next Appt Details Provider Name:Patrick Rucker , 08/20/2024 12:30:00 PM, [address] [place] [address] , [place], [place], [phone],
--- OUTSIDE RECORDS SUMMARY | 2024-06-25 08:46 | XMS_ITS ---
Author Organization [facility] Address [address] [place] [id number] Care Team Providers Care Regional Facilities Specialist Name Role Phone Madeline Chen Primary Care Provider Unavailab Patrick Barone [phone] REASON FOR VISIT bowel prep MEDICATIONS Medication SIG (Take, Route, Frequency, Duration) Notes Start Date End Date Status Dulcolax (colon prep) 5 MG take at 3:00 p.m and 7:00p.m. Orally two tablets twice a day for one day for 1 day 04/05/2024 Active MiraLax (colon prep) 17 GM/SCOOP 1 238 Gram bottle mixed with Gatorade or Crystal Light Orally begin at 5:00 p.m. the day before the procedure for 1 day 04/05/2024 Active Encounters Encounter Location Date Provider Diagnosis [facility] [address] [address] 03/28/2024 Patrick Rucker PLAN OF TREATMENT Medication Medication Name Sig Start Date Stop Date Notes Dulcolax (colon prep) 5 MG take at 3:00 p.m and 7:00p.m. Orally two tablets twice a day for one day for 1 day 04/05/2024 MiraLax (colon prep) 17 GM/SCOOP 1 238 Gram bottle mixed with Gatorade or Crystal Light Orally begin at 5:00 p.m. the day before the procedure for 1 day 04/05/2024 Next Appt Details Provider Name:Patrick Rucker , 08/20/2024 12:30:00 PM, [address] [place] [address], [phone],
--- OUTSIDE RECORDS SUMMARY | 2024-06-25 08:47 | XMS_ITS ---
Author Organization [facility] Address [address] [place] [address] Care Team Providers Care Arson And Bomb Investigator Name Role Phone Odilonmelissa Madeline Primary Care Provider Patrick Yang [phone] ALLERGIES Allergen (clinical drug ingredient) Drug/Non Drug Allergy documented on EMR Reaction Allergy Type Onset Date Status metformin Metformin Unknown Drug Allergy Active angiotensin-converting enzyme inhibitor (FN) NILSA Inhibitors Unknown Drug Allergy Acti ve chlorpheniramine Allergy Unknown Drug Allergy Active REASON FOR VISIT Patient presents today for a discuss colonoscopy MEDICATIONS Medication SIG (Take, Route, Frequency, Duration) Notes Start Date End Date Status Aspirin Low Dose 81 MG Oral for 90 Active traZODone HCl 50 MG Oral for 30 Active Cetirizine HCl 10 MG Oral for 90 Active OneTouch Verio - In Vitro for 75 Active metFORMIN HCl ER 750 MG Oral for 90 Active Ezetimibe 10 MG Oral for 90 Ac tive Metoprolol Succinate ER 200 MG Oral for 90 Active Omeprazole 20 MG Oral for 90 A ctive Ibuprofen 600 MG Oral for 30 A ctive OneTouch Delica Plus Lancet3 3G - for 50 Active Alcohol Prep 70 % for 34 Ac tive Gabapentin 300 MG Oral for 90 Active DULoxetine HCl 60 MG Oral for 30 Active carBAMazepine ER 200 MG Oral for 30 Active Folic Acid 1 MG Oral for 90 Ac tive LORazepam 1 MG Oral for 30 Act kellie Zinc Active Vitamin B6 Active Vitamin C Active ProAir HFA Active Senexon Active Nitrostat Active Tolterodine Tartrate Active Triamcinolone Acetonide Active Losartan Potassium A ctive Motrin Active Nasacort Allergy 24HR Active Ketotifen Fumarate A ctive Loratadine Active Detrol Active Flonase Active hydroCHLOROthiazide Active flovent HFA Active Fluticasone Propionate Active Albuterol Sulfate Ac tive Crestor Active SOCIAL HISTORY Tobacco Use: Social History Observation Description Date Details (start date - stop date) Never Smoker NA - NA Sex Assigned At : Social History Observation Description Sex Assigned At Unknown Tobacco Use/Smoking Question Answer Notes Patient is a nonsmoker Alcohol Screen Question Answer Notes Did you have a drink containing alcohol in the p ast year? No Points 0 Interpretation Negative PROBLEMS Problem Type ICD Code Onset Dates Problem Status W/U Status Risk SNOMED Code Notes Problem Colon cancer screening (Z12.11) Active confirmed Colon cancer screening (441553006) Problem Aspirin long-term use (Z79.82) Active confirmed Long-term current use of aspirin (3104677074227 03) Problem Encounter for other preprocedural examination (Z01.818) Active confirmed Pre-procedure evaluation check (666537099) VITAL SIGNS BMI 30.94 kg/m2 03/28/2024 Blood pressure systolic 000 mm Hg 03/28/20 24 Blood pressure diastolic 00 mm Hg 024 Height 5 ft 4 in in 03/28/2024 Temperature 96.8 degrees Fahrenheit 03/28/20 24 Weight 180 lb 4 oz lbs 03/28/2024 Encounters Encounter Location Date Provider Diagnosis [facility] [address] [place] [address] 03/28/2024 Patrick Rucker Colon cancer screeni ng Z12.11 ; Encounter for other preprocedural examination Z01.818 and Aspirin long-term use Z79.82 ASSESSMENTS Encounter Date Diagnosis Assessment Notes Treatment Notes Treatment Clinical Notes 03/28/2024 Colon cancer screening (ICD-10 - Z12.11) Do not take the Metformin the night before nor on the morning of the colonoscopy Do not take the aspirin for 2 days before the colonoscopy Do not take the Hydrochlorothiazide the day before nor on the day of the colonoscopy 03/28/2024 Encounter for other preprocedural examination (ICD-10 - Z01.818) 03/28/2024 Aspirin long-term use (ICD-10 - Z79.82) PLAN OF TREATMENT Treatment Notes Assessment Notes Colon cancer screening Do not take the Metformin the night before nor on the morning of the colonoscopy Do not take the aspirin for 2 days before the colonoscopy Do not take the Hydrochlorothiazide the day before nor on the day of the colonoscopy Future Test Test Name Order Date COLONOSCOPY 03/28/2024 Next Appt Details Follow Up: prn, Reason: Provider Name:Patrick Rucker , 08/20/2024 12:30:00 PM, [address] [place] [address], [phone], Progress Notes * Examination Category Sub-Category Detail Notes General Examination GENERAL APPEARANCE: pleasant , well nourished, well developed, in no acute distress HEAD: EYES: sclera non-icteric EARS: NOSE: THROAT: NECK/THYROID: no cervical lymphade nopathy, neck supple HEART: S1, S2 normal CHEST: LUNGS: clear to auscultatio n bilaterally ABDOMEN: normal bowel sounds, no guarding or rigidity, no guarding or rigidity, no masses palpable, soft, nontender, nondistended NEUROLOGIC: alert and oriented SKIN: nonjaundiced, no spi candy angiomata EXTREMITIES: no edema PERIPHERAL PULSES: BACK: BREASTS: MUSCULOSKELETAL: MALE GENITOURINARY: LYMPH NODES: RECTAL EXAM: FEMALE GENITOURINARY: ORAL CAVITY: mucosa moist
--- OUTSIDE RECORDS SUMMARY | 2024-06-25 08:47 | XMS_ITS | Patient Health Record ---
Author Organization [facility] Address [address] [place] [address] Care Team Providers Care Airfield Engineer Officer Name Role Phone Madeline Chen Primary Care Provider Patrick Yang [phone] ALLERGIES Allergen (clinical drug ingredient) Drug/Non Drug Allergy documented on EMR Reaction Allergy Type Onset Date Status metformin Metformin Unknown Drug Allergy Active angiotensin-converting enzyme inhibitor (FN) NILSA Inhibitors Unknown Drug Allergy Acti ve chlorpheniramine Allergy Unknown Drug Allergy Active REASON FOR REFERRAL No Information MEDICATIONS Medication SIG (Take, Route, Frequency, Duration) Notes Start Date End Date Status Vitamin B6 Active Vitamin C Active Tolterodine Tartrate Active Triamcinolone Acetonide Active Dulcolax (colon prep) 5 MG take at 3:00 p.m and 7:00p.m. Orally two tablets twice a day for one day for 1 day 04/05/2024 Active LORazepam 1 MG Oral for 30 Act kellie MiraLax (colon prep) 17 GM/SCOOP 1 238 Gram bottle mixed with Gatorade or Crystal Light Orally begin at 5:00 p.m. the day before the procedure for 1 day 04/05/2024 Active Zinc Active Detrol Active Alcohol Prep 70 % for 34 Ac tive Flonase Active Gabapentin 300 MG Oral for 90 Active Albuterol Sulfate Ac tive DULoxetine HCl 60 MG Oral for 30 Active Crestor Active carBAMazepine ER 200 MG Oral for 30 Active hydroCHLOROthiazide Active Ibuprofen 600 MG Oral for 30 A ctive Ketotifen Fumarate A ctive flovent HFA Active Folic Acid 1 MG Oral for 90 Ac tive Fluticasone Propionate Active OneTouch Delica Plus Lancet3 3G - for 50 Active Loratadine Active Losartan Potassium A ctive Ezetimibe 10 MG Oral for 90 Ac tive Motrin Active Aspirin Low Dose 81 MG Oral for 90 Active Metoprolol Succinate ER 200 MG Oral for 90 Active Omeprazole 20 MG Oral for 90 A ctive ProAir HFA Active traZODone HCl 50 MG Oral for 30 Active Senexon Active Cetirizine HCl 10 MG Oral for 90 Active Nasacort Allergy 24HR Active OneTouch Verio - In Vitro for 75 Active Nitrostat Active metFORMIN HCl ER 750 MG Oral for 90 Active IMMUNIZATIONS Vaccine Route Administration Date Status Comme nts Influenza Unknown 09/13/2023 Administered SOCIAL HISTORY Tobacco Use: Social History Observation [...] screening (Z12.11) Active confirmed Colon cancer screening (911868839) Problem Aspirin long-term use (Z79.82) Active confirmed Long-term current use of aspirin (3731338183409 03) Problem Encounter for other preprocedural examination (Z01.818) Active confirmed Pre-procedure evaluation check (020145534) VITAL SIGNS Temperature 96.8 degrees Fahrenheit 03/28/2024 Blood pressure diastolic 00 mm Hg 03/28/2024 Height 5 ft 4 in in 03/28/2024 Blood pressure systolic 000 mm Hg 03/28/2024 Weight 180 lb 4 oz lbs 03/28/2024 BMI 30.94 kg/m2 03/28/2024 Encounters Encounter Location Date Provider Diagnosis [facility] [address] [place] [address] 11/30/2023 Patrick Rucker [facility] [address] [place] [address] 03/28/2024 Patrick Rucker Colon cancer screeni ng Z12.11 ; Encounter for other preprocedural examination Z01.818 and Aspirin long-term use Z79.82 [facility] [address] [place] [address] 10/17/2023 Patrick Rucker [facility] [address] [place] [address] 03/28/2024 Patrick Rucker [facility] [address] [place] [address] 05/03/2024 Patrick Rucker ASSESSMENTS Encounter Date Diagnosis Assessment Notes Treatment [...] use (ICD-10 - Z79.82) PLAN OF TREATMENT Future Test Test Name Order Date COLONOSCOPY 03/28/2024 Next Appt Details Provider Name:Patrick Rucker , 08/20/2024 12:30:00 PM, [address] [place] [address] , [place], [place], [id number], Insurance Providers Payer Name Payer Address Payer Phone Subscriber Number Group Number Insured Name Patient Relationship to Insured Coverage Start Date Coverage End Date [facility] [address] Attn Claims HARDY Barker [id number] Teodora Hawkins Self - patient is the insured MEDICAL (GENERAL) HISTORY Medical History History ICD Code angina hypertension sleep apnea asthma kidney disease stage 3 fibromyalgia ovarian cancer depression diabetes high cholesterol cpap machine Surgical History Surgery Date(Month/Year) Carpal tunnel on the left DEION for ovarian cancer ion 1997 Cataracts end of 03/2024
--- OUTSIDE RECORDS SUMMARY | 2024-06-25 08:47 | XMS_ITS | Continuity of Care Document ---
Author Organization [facility] Address [address] [place] [address]- Care Team Providers Care Recreation Attendant Supervisor Name Role Phone April FREITAS, Madeline Ybarra Primary Care Physician [phone] Encounter [facility] Date(s): 06/17/22 - 07/17/22 [facility] [address] [place] [id number] Allergies, Adverse Reactions, Alerts No Known Allergies Medications atorvastatin 20 mg oral tablet 1 tablet = 20 mg, By Mouth, Daily, # 30 tablet, 0 Refills, Maintenance, Tablet Start Date: 12/31/11 Status: Ordered fluoxetine 40 mg oral capsule 1 capsule = 40 mg, By Mouth, Daily, # 30 capsule, 0 Refills, Maintenance, Capsule Start Date: 12/31/11 Status: Ordered folic acid 1 mg oral tablet 1 tablet = 1 mg, By Mouth, Daily, 0 Refills, Maintenance Start Date: 09/13/12 Status: Ordered isosorbide mononitrate 30 mg oral tablet, extended release 1 tablet = 30 mg, By Mouth, Daily in AM, # 30 tablet, 0 Refills, Maintenance, ER Tablet Start Date: 12/31/11 Status: Ordered loratadine 10 mg oral tablet 1 tablet = 10 mg, By Mouth, Daily, # 30 tablet, 0 Refills, Maintenance, Tablet Start Date: 12/31/11 Status: Ordered losartan 100 mg oral tablet 1 tablet = 100 mg, By Mouth, Daily, # 30 tablet, 0 Refills, Maintenance, Tablet Start Date: 12/31/11 Status: Ordered methotrexate 2.5 mg oral tablet 3 tablet = 7.5 mg, By Mouth, 0 Refills, Maintenance Start Date: 09/13/12 Status: Ordered prednisone 10 mg oral tablet 1 tablet = 10 mg, By Mouth, Daily, 0 Refills, Maintenance Start Date: 12/31/11 Status: Ordered verapamil 360 mg oral capsule, extended release 1 capsule = 360 mg, By Mouth, Daily, # 30 capsule, 0 Refills, Maintenance, CR Capsule Start Date: 12/31/11 Status: Ordered VESIcare 5 mg oral tablet 1 tablet = 5 mg, By Mouth, Daily, # 30 tablet, 0 Refills, Maintenance, Tablet Start Date: 12/31/11 Status: Ordered Vitamin D 89568 iu oral capsule 1 capsule = 50,000 International_Units, By Mouth, Every week, 0 Refills, Maintenance Start Date: 12/31/11 Status: Ordered zolpidem 10 mg oral tablet 1 tablet = 10 mg, By Mouth, Daily at bedtime, PRN Sleep, 0 Refills, Maintenance, Tablet Start Date: 12/31/11 Status: Ordered Care Team Personnel Name: Madeline Chen MD Address: [address] [place] [address] [address] [place], [place] [id number]
[2024-06-25 10:14] VITALS: BP 139/89; PULSE 59; RESP 16; TEMP 36.1; O2SAT 98
[2024-06-25 10:18] LABS: Glucose, Whole Blood 111 mg/dL (60-115)
[2024-06-25] MEDS: Tetracaine HCl/PF 0.5% Oph Sol 4 ML DROPS 1 DROP EYE-RIGHT (10:41)
[2024-06-25] MEDS: Cyclopentolate 1 % Ophth Sol 2 ML DRPBTL 1 DROP EYE-RIGHT ×3 (10:43→10:59)
[2024-06-25] MEDS: Tropicamide 1 % Ophth Sol 3 ML BTL 1 DROP EYE-RIGHT ×3 (10:46→11:00)
[2024-06-25] MEDS: Ketorolac Tromethamine 0.5% Op 10 ML DROPS 1 DROP EYE-RIGHT ×3 (10:47→11:01)
[2024-06-25] MEDS: Phenylephrine HCL 2.5% Oph SoL 2 ML BOTTLE 1 DROP EYE-RIGHT ×3 (10:49→11:01)
[2024-06-25] MEDS: Lactated Ringers 500 ML 50 ML IV (11:12)
--- NOTE | 2024-06-25 11:42 | MHC.SHP ---
Pre-Procedural Eval Section A - 24 Hr Update-Section A only Date of Service: 06/25/24 The patient is an INPATIENT: No Changes since office visit: No Cold of Flu in the past 2 weeks, No New Medical Problems, No Changes in Medication and No Patient answered all questions The patient has been examined within 24 hours of the surgical procedure. The History & Physical has been completed within 30 days and I have reviewed it.: Yes Section B - Complete if H&P > 30 days Chief Complaint: Age-related nuclear cataract, right eye Allergies: Allergies Allergy/AdvReac Type Severity Reaction Status Date / Time NILSA Inhibitors AdvReac Intermediate Cough Verified 06/22/24 11:51 metformin AdvReac Abdominal Verified 06/22/24 11:51 Pain, (in higher doses) Plan Diagnosis/Plan: Unchanged I have reviewed the history and physical and performed a pertinent physical examination on my patient. No changes have occurred unless specified. Time Spent With Patient Time: Total time managing care of this patient today ____ minutes.
--- NOTE | 2024-06-25 11:43 | P.PCNO_ITS ---
Ophthalmology Procedure Procedure Date of Service: 06/25/24 Ophthalmology Viscoelastic: Healon Duet Dual Pack Pro Ophthalmology Lenses: IOL Acrysof MP - [id number] (20.5) Procedure Notes: PREOPERATIVE DIAGNOSIS: Decreased visual acuity right eye secondary to cataract POSTOPERATIVE DIAGNOSIS: Same PROCEDURE: Right cataract extraction with intraocular lens insertion SURGEON: Lalit Lamb M.D. ANESTHESIA: Topical/MAC ESTIMATED BLOOD LOSS: None COMPLICATIONS: None After obtaining informed consent, the patient was brought to the operating room suite and placed in the supine position. After adequate sedation per anesthesia, topical drops of Tetracaine were given to the right eye. The eye was then prepped and draped in the usual sterile fashion. The operating room microscope was then positioned over the operative eye and a lid speculum placed. A paracentesis was created. Viscoelastic was then instilled into the anterior chamber. A three plane incision was then created temporally, utilizing a 2.85 mm keratome. Capsulotomy forceps were then utilized to create a circular tear capsulotomy. Hydrodissection and hydrodelineation were carried out until adequate mobilization of the nucleus occurred. Phacoemulsification was then utilized to remove the dense central nu cleus followed by removal of the cortical material utilizing the automated aspiration irrigation unit. Viscoelastic was instilled into the posterior capsular bag followed by placement of a posterior chamber intraocular lens without difficulty. The residual Viscoelastic was then removed utilizing the automated IA machine. The wound was checked and found to be watertight. The patient tolerated the procedure well and the lid speculum was removed. Intracameral injection of Vigamox 0.1 mL followed by a subtenon injection of Kenalog-40 0.2 mL were administered. The patient will be seen in the a.m.
[2024-06-25 12:13] VITALS: BP 128/91; PULSE 63; RESP 16; TEMP 36.4; O2SAT 98
== END 2024-06-25 12:24 | disposition home or self-care (01) ==
PROVIDERS: PCP Internal Medicine; Visit Provider Ophthalmology
PROC: (CPT 66985; principal; 2024-06-25 11:20)
DX: H25.11 Age-related nuclear cataract, right eye (principal); H52.4 Presbyopia; H18.413 Arcus senilis, bilateral; H43.393 Other vitreous opacities, bilateral; H11.133 Conjunctival pigmentations, bilateral; I10 Essential (primary) hypertension; E11.9 Type 2 diabetes mellitus without complications; J45.909 Unspecified asthma, uncomplicated; F32.A Depression, unspecified; Z79.82 Long term (current) use of aspirin; Z79.899 Other long term (current) drug therapy; Z88.8 Allergy status to other drugs, medicaments and biological substances; Z98.890 Other specified postprocedural states; Z87.891 Personal history of nicotine dependence
CPT/HCPCS: 66984; 82947; J2250; J3301; V2630

== ENCOUNTER 2024-10-15 12:22 | Outpatient (REF) | payer OTHER, SELFPAY ==
[2024-10-15 12:52] LABS: MANUAL DIFF FLAG NO
[2024-10-15 13:09] LABS: Basophils Absolute Auto 0.1 X10*3/uL (0.0-0.2); Eosinophils Absolute Auto 0.2 X10*3/uL (0.0-0.4); Eosinophils Percent Auto 3.1 % (0-4); Hematocrit 37.2 % (37.0-47.0); Hemoglobin 12.3 g/dl (12.0-16.0); Imm Gran Abs Auto 0.01 X10*3/uL (0.00-0.03); Imm Gran Pct Auto 0.2 % (0.0-0.4); Lymphocytes Absolute Auto 1.4 X10*3/uL (1.2-4.9); Lymphocytes Percent Auto 23.3 % (20-40); Mean Corpuscular HGB Conc 33.1 g/dl (31.0-35.0); Mean Corpuscular Hemoglobin 26.1 pg (27.0-33.0); Monocytes Absolute Auto 0.5 X10*3/uL (0.1-1.2); Monocytes Percent Auto 7.9 % (2-11); Neutrophils Percent Auto 64.5 % (45-73); Platelet Count 285 X10*3/uL (160-400); Red Blood Count 4.71 X10*6/uL (4.20-5.50); White Blood Count 6.2 X10*3/uL (4.8-10.8)
[2024-10-15 13:10] LABS: Estimated Average Glucose 143 mg/dL; Hemoglobin A1C 151.7709 umol/L; Hemoglobin A1c % 6.6 % (<6.0); Total Hemoglobin (HGBA1C) 3116.8736 umol/L
[2024-10-15 14:04] LABS: Creatinine Urine 222.77 mg/dL; Microalbum/Creatinine Ratio Ur 117.1 ug/mg cr (<30)
[2024-10-15 14:08] LABS: Alanine Aminotransferase 21 U/L (0-31); Albumin Level 4.4 g/dL (3.5-5.0); Alkaline Phosphatase 97 U/L (39-117); Anion Gap 10 (12-20); Aspartate Amino Transferase 26 U/L (5-31); Bilirubin Total 0.4 mg/dL (0.0-1.0); Blood Urea Nitrogen 10 mg/dL (9-16); Carbon Dioxide 31 mmol/L (22-29); Chloride 93 mmol/L (96-108); Cholesterol 171 mg/dL (<200); Estimated Glomerular Filt Rate 53; Glucose Random 121 mg/dL (60-115); HDL Cholesterol 69 mg/dL (>40); LDL Cholesterol Calculated 80 mg/dL (<100); Sodium 130 mmol/L (135-145); Total Protein 7.9 g/dL (6.5-8.0); Triglycerides 111 mg/dL (<150)
[2024-10-15 14:11] LABS: Thyroid Stimulating Hormone 0.68 uIU/mL (0.32-4.0)
[2024-10-15 14:24] LABS: Folate 17.6 ng/mL (> or = 4.0); Vitamin B12 492 pg/mL (200-900)
== END 2024-10-15 12:23 | disposition home or self-care (01) ==
LOC: HO.LAB 12:22
PROVIDERS: PCP Internal Medicine; Visit Provider Internal Medicine
DX: E11.9 Type 2 diabetes mellitus without complications (principal); E78.00 Pure hypercholesterolemia, unspecified; G47.33 Obstructive sleep apnea (adult) (pediatric); I10 Essential (primary) hypertension; N32.81 Overactive bladder
CPT/HCPCS: 36415; 80053; 80061; 82043; 82570; 82607; 82746; 83036; 84443; 85025

== ENCOUNTER 2024-11-09 13:56 | Outpatient (AMB) | payer OTHER, SELFPAY ==
--- NOTE | 2024-11-09 14:04 | HO.NEPHOV_ITS ---
Vital Signs 11/09/24 14:05 Height 5 ft 4 in Weight 171 lb BMI 29.3 BP 112/70 Blood Pressure Location Rt brachial Position Sitting Intake Visit Reasons: Chronic renal insufficiency/ Conf Labor Crew Supervisor Required: Yes Labor Crew Supervisor Language: Commodity Analyst Services: Labor Crew Supervisor Offered & Declined ([facility] Labor Crew Supervisor services refused ) Accompanied by: Self / Same As Patient Allergies NILSA Inhibitors Adverse Reaction (Intermediate, Verified 11/09/24 14:04) Cough metformin Adverse Reaction (Verified 11/09/24 14:04) Abdominal Pain, (in higher doses) HPI Comments Details: Teodora was seen in follow-up of her chronic kidney disease and hypertension. She feels well. She denies any chest pain, shortness of breath, proximal nocturnal dyspnea, orthopnea, pedal edema, orthostatic symptoms, hematuria or hypoglycemia. Her blood sugar is well controlled. She avoids nonsteroidal and anti-inflammatories and maintain good hydration. She had her cataract surgery & is doing well. she did not have any active complaints at the time of this office visit. [facility] Medical History Seasonal allergies Hx of cancer of uterus CAD (coronary artery disease) Cataract Left anterior shoulder pain Trigeminal neuralgia Elevated cholesterol Angina pectoris Aortic dilatation Depression Chronic renal insufficiency Sleep apnea Fibromyalgia Osteoarthritis of knee Arthritis Diabetes HTN (hypertension) Asthma Surgical History Hx of right cataract extraction (06/25/24) S/P DEION-BSO (total abdominal hysterectomy and bilateral salpingo-oophorectomy) (~1998) History of carpal tunnel release Hx of cardiac catheterization H/O colonoscopy History of pubovaginal sling Social History Are you a primary care program director to a significant other at home: No Do you presently have visiting nurse or other home services: No Alcohol intake: former Year quit: 2007 Patient Tobacco Use Status: Former Tobacco user Tobacco use type: Cigarette Review of Systems Const All systems reviewed & are unremarkable except as noted in HPI and below Physical Exam Vital Signs: Last Vital Signs BP 112/70 11/09/24 14:05 BMI result Body Mass Index 29.3 Const General: comfortable and no acute distress Orientation/consciousness: patient oriented x3 HEENT Head: Yes normocephalic Mouth: Normal oral and palatal mucosa present Eyes EOM: EOMs intact bilaterally Neck Neck: Yes supple Resp Auscultation: clear to auscultation bilaterally Cardio Jugular venous distension: no JVD Rate: regular rate GI Palpation (GI): Soft to palpation Auscultation: normal bowel sounds General: Yes no CVA tenderness Back/Spine/Pelvis Back: no CVA tenderness Skin General skin exam: no rashes or lesions noted Neuro General: patient oriented x3 and moves all extremities Extrem General: Yes no pedal edema Results Reviewed Nephrology Results: Hgb 12.3 g/dl (12.0-16.0) 10/15/24 WBC 6.2 X10*3/uL (4.8-10.8) 10/15/24 Plt Count 285 X10*3/uL (160-400) 10/15/24 Sodium 130 mmol/L (135-145) L 10/15/24 Potassium 4.0 mmol/L (3.3-5.1) 10/15/24 Chloride 93 mmol/L (96-108) L 10/15/24 Carbon Dioxide 31 mmol/L (22-29) H 10/15/24 BUN 10 mg/dL (9-16) 10/15/24 Creatinine 1.03 mg/dL (0.5-1.4) 10/15/24 Calcium 10.0 mg/dL (8.4-10.2) 10/15/24 Urine Creatinine 222.77 mg/dL 10/15/24 Protein/Creatinin Ratio 0.21 (<0.2) H 06/18/24 Assessment & Plan Assessment & Plan (1) Chronic renal insufficiency: Comment: stage 3 Code(s): N18.9 - Chronic kidney disease, unspecified Category: Medical Qualifiers: Chronic kidney disease stage: stage 3 (moderate) Chronic kidney disease stage 3 subtype: stage 3a (GFR 45-59) Qualified Code(s): N18.31 - Chronic kidney disease, stage 3a (2) HTN (hypertension): Code(s): I10 - Essential (primary) hypertension Category: Medical Qualifiers: Hypertension type: primary hypertension Qualified Code(s): I10 - Essential (primary) hypertension Plan Teodora has stage III CKD likely from vascular disease. Her renal functions are stable. She does not have any significant proteinuria. Her blood pressure has been at goal. She is tolerating angiotensin receptor tao. Her blood sugar needs to be consistently well controlled. She needs to lose weight. She avoids nonsteroidal inflammatory medications. She hydrates herself well. She will be a candidate for Jardiance in the near future. I did not make any medication changes today. Follow-up appointment given Orders: Orders Blood Urea Nitrogen 6 Months N18.31 - Chronic kidney disease, stage 3a, I10 - Essential (primary) hypertension Electrolytes 6 Months N18.31 - Chronic kidney disease, stage 3a, I10 - Essential (primary) hypertension Creatinine 6 Months N18.31 - Chronic kidney disease, stage 3a, I10 - Essential (primary) hypertension Coding Level of Care Code Est Pt Level 4 (58398) Diagnoses Chronic renal impairment, stage 3a N18.31 Chronic kidney disease stage: stage 3 (moderate) Chronic kidney disease stage 3 subtype: stage 3a (GFR 45-59) Primary hypertension I10 Hypertension type: primary hypertension
[2024-11-09 14:05] VITALS: BP 112/70; BMI 29.3
== END 2024-11-09 14:16 | disposition home or self-care (01) ==
LOC: HO.HKA 13:56
PROVIDERS: PCP Internal Medicine; Visit Provider Internal Medicine Nephrology
DX: I12.9 Hypertensive chronic kidney disease with stage 1 through stage 4 chronic kidney disease, or unspecified chronic kidney disease (principal); N18.31 Chronic kidney disease, stage 3a
CPT/HCPCS: 99214

== ENCOUNTER → 2024-11-09 13:56 | Outpatient (BNVA) | payer OTHER, SELFPAY | PROVIDERS: PCP Internal Medicine; Visit Provider Internal Medicine Nephrology | DX: I12.9 Hypertensive chronic kidney disease with stage 1 through stage 4 chronic kidney disease, or unspecified chronic kidney disease (principal); N18.31 Chronic kidney disease, stage 3a | CPT/HCPCS: 99212 ==

== ENCOUNTER 2025-01-21 13:45 | Outpatient (REF) | payer OTHER, SELFPAY ==
[2025-01-21 14:41] LABS: Estimated Average Glucose 140 mg/dL; Hemoglobin A1C 137.4853 umol/L; Hemoglobin A1c % 6.5 % (<6.0); Total Hemoglobin (HGBA1C) 2921.9506 umol/L
[2025-01-21 15:12] LABS: Alanine Aminotransferase 18 U/L (0-31); Albumin Level 4.1 g/dL (3.5-5.0); Alkaline Phosphatase 87 U/L (39-117); Anion Gap 13 (12-20); Aspartate Amino Transferase 25 U/L (5-31); Bilirubin Total 0.2 mg/dL (0.0-1.0); Blood Urea Nitrogen 24 mg/dL (9-16); Calcium 9.7 mg/dL (8.4-10.2); Carbon Dioxide 28 mmol/L (22-29); Chloride 107 mmol/L (96-108); Estimated Glomerular Filt Rate 55; Glucose Random 101 mg/dL (60-115); Potassium 4.2 mmol/L (3.3-5.1); Sodium 144 mmol/L (135-145); Total Protein 7.9 g/dL (6.5-8.0)
--- OUTSIDE RECORDS SUMMARY | 2025-01-21 16:17 | XMS_ITS | Encounter Summary ---
Author Organization [facility] [facility] Address [address] [place] [address] Care Team Providers Care Electroplating Worker Name Role Phone Unavailable Primary Care Provider Unavailabl e Encounter Details Date Type Department Care Team (Latest Contact Info) Description 07/02/2019 Abstract [facility] CONVERSIONS Dental, Provider, DDS Social History Tobacco Use Types Packs/Day Years Used Date Smoking Tobacco: Never Assessed Comments Unknown Sex and Gender Information Value Date Recorded Sex Assigned at Female 09/20/2022 10:15 AM EDT Legal Sex Female 10:15 AM EDT Gender Identity Female 09/20/2022 10:15 AM EDT Sexual Orientation Straight 09/20/2022 10 :15 AM EDT documented as of this encounter Plan of Treatment Not on file documented as of this encounter Visit Diagnoses Not on filedocumented in this encounter
--- OUTSIDE RECORDS SUMMARY | 2025-01-21 16:17 | XMS_ITS | Encounter Summary ---
Author Organization [employer] Address [address] [place] [address] Care Team Providers Care Electrical And Radio Mock Up Mechanic Name Role Phone Unavailable Primary Care Provider Unavailabl e Encounter Details Date Type Department Care Team (Latest Contact Info) Description 12/24/2024 Travel Social History Tobacco Use Types Packs/Day Years Used Date Smoking Tobacco: Never Passive Smoke Exposure: Never Smokeless Tobacco: Never Comments Unknown Sex and Gender Information Value [...]
--- OUTSIDE RECORDS SUMMARY | 2025-01-21 16:17 | XMS_ITS | Encounter Summary ---
Author Organization [employer] [facility] Address [address] [place] [address] Care Team Providers Care Ore Miner Name Role Phone Unavailable Primary Care Provider Unavailabl e Encounter Details Date Type Department Care Team (Latest Contact Info) Description 05/07/2022 Abstract [facility]HC CONVERSIONS Dental, Provider, DDS Social [...]
--- OUTSIDE RECORDS SUMMARY | 2025-01-21 16:17 | XMS_ITS | Clinical Summary ---
Author Organization [facility] Address [address] [place] [phone] Phone Care Team Providers Care Exhibit Designer Name Role Phone Madeline Chen MD Primary Care Provider Allergies Active Allergy Reactions Criticality Noted Date Comments Tamir Inhibitors Other (see comments) 03/26/2021 Metformin Other (see comments) 03/26/2021 Medications aspirin (ST LORA) 81 MG EC tablet Take 1 tablet by mouth 1 (one) time each day Active cetirizine (ZyrTEC) 10 MG tablet Take 1 tablet by mouth 1 (one) time each day Active gabapentin (NEURONTIN) 300 MG capsule Take 1 capsule by mouth 3 (three) times a day Active metFORMIN XR (GLUCOPHAGE-XR) 750 MG 24 hr tablet Take 1 tablet by mouth 2 (two) times a day Active metoprolol succinate XL (TOPROL-XL) 200 MG 24 hr tablet Take 1 tablet by mouth 1 (one) time each day Active rosuvastatin (CRESTOR) 20 MG tablet Take 1 tablet by mouth 1 (one) time each day Active tolterodine LA (DETROL LA) 4 MG 24 hr capsule Take 1 capsule by mouth 1 (one) time each day Active carBAMazepine (TEGretol) 200 MG tablet Take 200 mg by mouth 2 (two) times a day Active DULoxetine (CYMBALTA) [address] capsule Take 60 mg by mouth 1 (one) time each day Do not crush or chew. Active folic acid (FOLVITE) 1 MG tablet Take 1 mg by mouth 1 (one) time each day Active hydroCHLOROthia zide 25 MG tablet Take 25 mg by mouth 1 (one) time each day Active hydroxychloroqu ine (PLAQUENIL) 200 MG tablet Take 200 mg by mouth 2 (two) times a day Active losartan (COZAAR) 100 MG tablet Take 100 mg by mouth 1 (one) time each day Active Active Problems Problem Noted Date Diagnosed Date Chronic kidney disease, stage 2 (mild) Hypertension 10/28/2021 Acute nontraumatic kidney injury 03/26/2021 Stage 3a chronic kidney disease 03/26/2021 Essential hypertension 03/26/2021 Obesity 03/26/2021 Diabetes mellitus 01/06/2012 Hyperlipidemia 01/06/2012 Overview (07/28/2022): O update Muscle pain 01/06/2012 Overview (07/28/2022): O update Rheumatoid arthritis 01/06/2012 Vertigo 01/06/2012 Family History Medical History Relation Comments Diabetes Mother Heart disease Mother Hypertension Mother Relation Status Comments Father Alive Mother Social History Tobacco Use Types Packs/Day Years Used Date Smoking Tobacco: Former Cigarettes Q uit: 11/21/2007 Smokeless Tobacco: Never Tobacco Cessation:Counseling Given: Not Answered Comments:Smoking History Info:Some days Comments Unknown Sex and Gender Information Value Date Recorded Sex Assigned at Not on file Legal Sex Female 4:46 PM EST Gender Identity Not on file Sexual Orientation Not on file Last Filed Vital Signs Vital Sign Reading Time Taken Comments Blood Pressure 110/70 07/28/2022 2:05 PM EDT Pulse 59 10/28/2021 1:04 PM EST Temperature - - Respiratory Rate - - Oxygen Saturation 96% 10/28/2021 1:04 PM EST Inhaled Oxygen Concentration - - Weight 93.5 kg (206 lb 3.2 oz) 07/28/2022 2:05 P M EDT Height 162.6 cm (5' 4 ) 02/22/2020 12:00 PM EDT Body Mass Index 35.39 02/22/2020 12:00 PM EDT Plan of Treatment Health Maintenance Due Date Last Done Comments Breast Cancer Screening 1957 Pneumococcal Vaccine: 65+ Ye ars (1 of 2 - PCV) 1963 Colorectal Cancer Screening: Annual FOBT 2006 Colorectal Cancer Screening: Colonoscopy 2006 Colorectal Cancer Screening: Sigmoidoscopy 2006 Diabetes: Hemoglobin A1C 05/12/2022 Diabetes: Ophthalmology Exam 05/12/2022 Diabetes: Pedal Pulse Checked 05/12/2022 Diabetes: Sensory Foot Exam 05/12/2022 Diabetes: Visual Foot Exam 05/12/2022 Influenza Vaccine (#1) 2024 Hepatitis B Vaccine Aged Out No longe r eligible based on patient's age to complete this topic Insurance [facility] Care Teams Exhibit Designer Relationship Specialty Start Date End Date Madeline Chen MD [address] [place] [address] PCP - General 12/01/20
--- OUTSIDE RECORDS SUMMARY | 2025-01-21 16:17 | XMS_ITS | Clinical Summary ---
Author Organization [facility] Address [address] [facility] 7t [place] [address] Care Team Providers Care Ball Mill Operator Name Role Phone Unavailable Primary Care Provider Unavailabl e Allergies Active Allergy Reactions Criticality Noted Date Comments Tamir Inhibitors Other 03/26/2021 Excessive coughing Metformin Other 03/26/2021 In higher doses Pt coughs frequently. And gave her frequent diarrhea Medications Alcohol Swabs (Alcohol Prep) 70 % pads USE THREE TIMES DAILY DIRECTED 05/03/2023 Active Aspirin Low Dose 81 MG EC tablet Take 81 mg by mouth at bedtime. 05/03/2023 Active carBAMazepine XR (TEGretol XR) 200 MG 12 hr tablet TAKE 1 TABLET BY MOUTH TWICE DAILY IN THE MORNING AND IN THE EVENING 03/09/2023 Active cetirizine (ZyrTEC) 10 MG tablet Take 10 mg by mouth in the morning. 05/03/2023 Active ciclopirox (Loprox) 0.77 % cream APPLY TO TOENAILS AND SKIN TWICE DAILY DIRECTED 04/27/2023 Active DULoxetine (Cymbalta) [address] capsule Take 60 mg by mouth in the morning. 05/03/2023 Active Flovent HFA 110 MCG/ACT inhaler INHALE 2 PUFFS BY MOUTH TWICE DAILY. RINSE MOUTH AFTER USING. 05/03/2023 Active folic acid (Folvite) 1 MG tablet Take 1,000 mcg by mouth in the morning. 03/09/2023 Active gabapentin (Neurontin) 300 MG capsule TAKE 1 CAPSULE BY MOUTH THREE TIMES DAILY IN THE MORNING, EVENING, AND BEDTIME 03/09/2023 Active OneTouch Verio test strip TEST BLOOD SUGAR TWICE DAILY 05/03/2023 Active hydroCHLOROthia zide (HYDRODiuril) 25 MG tablet Take 25 mg by mouth in the morning. 04/06/2023 Active ibuprofen 600 MG tablet TAKE 1 TABLET BY MOUTH THREE TIMES DAILY NEEDED FOR BACKACHE 02/08/2023 Active Eye Itch Relief 0.025 % ophthalmic solution PLACE 1 DROP INTO THE AFFECTED EYE(S) EVERY DAY 04/12/2023 Active Lancets (OneTouch Delica Plus [id number]) [facility] TEST BLOOD SUGAR TWICE DAILY 05/03/2023 Active LORazepam (Ativan) 1 MG tablet Take 1 mg by mouth if needed at bedtime. 05/03/2023 Active losartan-hydroC HLOROthiazide (Hyzaar) 100-25 MG tablet Take 1 tablet by mouth in the morning. 05/03/2023 Active meloxicam (Mobic) 15 MG tablet Take 15 mg by mouth in the morning. 05/05/2023 Active metFORMIN XR (Glucophage-XR) 750 MG 24 hr tablet TAKE 1 TABLET BY MOUTH TWICE DAILY IN THE MORNING AND IN THE EVENING 05/03/2023 Active metoprolol succinate XL (Toprol-XL) 200 MG 24 hr tablet Take 200 mg by mouth in the morning. 03/09/2023 Active traZODone (Desyrel) 50 MG tablet TAKE 1 TO 2 TABLETS BY MOUTH EVERY DAY AT BEDTIME NEEDED 05/03/2023 Active Encounters Date Type Department Care Team Description 12/24/2024 Travel from Last 3 Months Immunizations Name Administration Dates Next Due Influenza High-dose Quadriva lent Preservative Free 09/08/2023 Influenza Injectable Quadriv alant Preservative Free IIV4 MDCK 10/06/2022,09/11/2021,08/05/2020 Influenza, seasonal, injecta ble, preservative free 08/17/2024,09/23/2021 Moderna Covid-19 Vaccine 12+ 09/23/2021 Pfizer Covid-19 Vaccine 12+ 08/17/2024, Pneumococcal Conjugate PCV 20 11/28/2023 Pneumococcal Polysaccharide PPSV23 09/25/2021 RSV Bivalent 11/28/2023 Tdap 01/19/2022 Zoster, Recombinant 07/06/2019,02/08/2019 Social History Tobacco Use Types Packs/Day Years Used Date Smoking Tobacco: Never Passive Smoke Exposure: Never Smokeless Tobacco: Never Comments Unknown Sex and Gender Information Value Date Recorded Sex Assigned at Female 09/20/2022 10:15 AM EDT Legal Sex Female 10:15 AM EDT Gender Identity Female 09/20/2022 10:15 AM EDT Sexual Orientation Straight 09/20/2022 10 :15 AM EDT Last Filed Vital Signs Vital Sign Reading Time Taken Comments Blood Pressure 132/76 05/17/2023 2:08 PM EDT Pulse 72 05/17/2023 2:08 PM EDT Temperature - - Respiratory Rate - - Oxygen Saturation - - Inhaled Oxygen Concentration - - Weight - - Height - - Body Mass Index - - Plan of Treatment Health Maintenance Due Date Last Done Comments CT Colonography 1957 Colonoscopy 1957 Colorectal Cancer Screening 1957 Depression Screening 1957 FIT DNA/Cologuard 1957 FIT 1957 FOBT 1957 Lipid Panel 1957 SDOH Screening 1957 Sigmoidoscopy 1957 Alcohol/Substance Use Screening 1969 Hepatitis C Screening 1975 Mammogram 1997 Dental Oral Exam 11/17/2023 05/17/2023, , 09/05/2017, Additional history exists Dental Prophylaxis 11/17/2023 05/17/2023, 0 05/07/2022, 07/02/2019, Additional history exists Tobacco Screening 05/17/2024 05/17/2023 Dental X-Ray: Bitewings 05/18/2024 05/17/20 23, 05/07/2022, 08/20/2021, Additional history exists Dental X-Ray: Full Mouth 05/08/2025 05/07/2022, 08/21 DTaP/Tdap/Td Vaccines (2 - Td or Tdap) 01/20/2032 01/19/2022 Zoster Vaccines Completed 07/06/2019, 02/08/2019 Pneumococcal Vaccine: 50+ Years Completed 11/28/2023, 09/25/2021 RSV Patients and Patients Aged 60 years or older Completed 11/28/2023 COVID-19 Vaccine Completed 08/17/2024, , 10/06/2022, Additional history exists Influenza Vaccine Completed 08/17/2024, , 10/06/2022, Additional history exists HIB Vaccines Aged Out No longer eligi ble based on patient's age to complete this topic HPV Vaccines Aged Out No longer eligi ble based on patient's age to complete this topic Hepatitis A Vaccines Aged Out No long er eligible based on patient's age to complete this topic Hepatitis B Vaccines Aged Out No long er eligible based on patient's age to complete this topic IPV Vaccines Aged Out No longer eligi ble based on patient's age to complete this topic Meningococcal Vaccine Aged Out No [place] eligible based on patient's age to complete this topic RSV under 20 months Aged Out No longe r eligible based on patient's age to complete this topic Rotavirus Vaccines Aged Out No longer eligible based on patient's age to complete this topic Procedures Procedure Name Priority Date/Time Associated Diagnosis Comments Full PROPHYLAXIS - ADULT Routine 023 1:00 PM EDT BITEWINGS - 4 RADIOGRAPHIC IMAGES Routine 05/17/2023 1:00 PM EDT PERIODIC ORAL EVALUATION - ESTABLISHED PATIENT Routine 05/17/2023 1:00 PM EDT INTRAORAL - COMPLETE SERIES OF RADIOGRAPHIC IMAGES Routine 05/07/2022 12:00 AM EDT from Last 3 Months or Most Recently Relevant to Health Maintenance Insurance [facility] Member Subscriber Plan / Payer (Ef fective 2022-Present) Name:Teodora Martínez Relation to Subscriber:Self Name:Teodora Martínez Payer ID:Not on file Group ID:[id number] Type:Not on file Address: [address] - [facility]
== END 2025-01-21 13:46 | disposition home or self-care (01) ==
LOC: HO.LAB 13:45
PROVIDERS: PCP Internal Medicine; Visit Provider Internal Medicine
DX: E11.9 Type 2 diabetes mellitus without complications (principal); I10 Essential (primary) hypertension; R51.9 Headache, unspecified; S06.0X0S Concussion without loss of consciousness, sequela
CPT/HCPCS: 36415; 80053; 83036

== ENCOUNTER 2025-02-13 11:28 | Outpatient (REF) | payer OTHER, SELFPAY ==
--- OUTSIDE RECORDS SUMMARY | 2025-02-13 13:57 | XMS_ITS | Encounter Summary ---
Author Organization [facility] Address [address] [facility] 7t [place] [address] Care Team Providers Care Field Nurse Case Manager Name Role Phone Unavailable Primary Care Provider [...]
--- OUTSIDE RECORDS SUMMARY | 2025-02-13 13:57 | XMS_ITS | Clinical Summary ---
Author Organization [facility] Address [address] [place] [phone] Phone Care Team Providers Care Gis Technician Name Role Phone Madeline Chen MD Primary [...] patient's age to complete this topic Insurance [facility] Care Teams Gis Technician Relationship Specialty Start Date End Date Madeline Chen MD [address] [place] [address] PCP - General 12/01/20
--- OUTSIDE RECORDS SUMMARY | 2025-02-13 13:57 | XMS_ITS | Clinical Summary ---
Author Organization [facility] Address [address] [facility] 7t [place] [address] Care Team Providers Care Energy Auditor Name Role Phone Unavailable Primary Care Provider [...] DAY 04/12/2023 Active Lancets (OneTouch Delica Plus [id number]) [facility] TEST BLOOD SUGAR TWICE DAILY 05/03/2023 Active [...] Relevant to Health Maintenance Insurance [facility]AL - [facility] Member Subscriber Plan / Payer (Ef fective 2022-Present) Name:Teodora Martínez Relation to Subscriber:Self Name:Teodora Martínez Payer ID:Not on file Group ID:[id number] Type:Not on file Address: [address] - [place] [facility]
--- OUTSIDE RECORDS SUMMARY | 2025-02-13 13:57 | XMS_ITS | Encounter Summary ---
Author Organization [facility] Address [address] [facility] [address]t [place] [address] Care Team Providers Care Manager Client Name Role Phone Unavailable Primary Care Provider [...]
== END 2025-02-13 11:29 | disposition home or self-care (01) ==
LOC: HO.MAMMO 11:28
PROVIDERS: PCP Internal Medicine; Visit Provider Internal Medicine
DX: Z12.31 Encounter for screening mammogram for malignant neoplasm of breast (principal)
CPT/HCPCS: 77063; 77067

== ENCOUNTER → 2025-02-13 12:15 | Outpatient (BNV) | payer OTHER, SELFPAY | PROVIDERS: PCP Internal Medicine; Visit Provider Internal Medicine | DX: Z12.31 Encounter for screening mammogram for malignant neoplasm of breast (principal) | CPT/HCPCS: 77063; 77067 ==

== ENCOUNTER 2025-03-06 12:28 | Outpatient (AMB) | payer OTHER, SELFPAY ==
--- NOTE | 2025-03-06 12:46 | HO.NEPHOV_ITS ---
Vital Signs 03/06/25 12:48 Height 5 ft 4 in Weight 167 lb 6 oz BMI 28.7 BP 110/70 Blood Pressure Location Rt brachial Position Sitting Intake Visit Reasons: Chronic renal insufficiency-Conf Public Events Facilities Rental Manager Required: Yes Public Events Facilities Rental Manager Language: Cessation Systems Outreach Specialist Services: Public Events Facilities Rental Manager Offered & Declined ([facility] translator/interpreter services refused ) Accompanied by: Self / Same As Patient Allergies NILSA Inhibitors Adverse Reaction (Intermediate, Verified 03/06/25 12:48) Cough metformin Adverse Reaction (Verified 03/06/25 12:48) Abdominal Pain, (in higher doses) HPI Comments Details: Teodora was seen in follow-up of her chronic kidney disease and hypertension. She feels well. She denies any chest pain, shortness of breath, proximal nocturnal dyspnea, orthopnea, pedal edema, orthostatic symptoms, hematuria or hypoglycemia. Her blood sugar is well controlled. She avoids nonsteroidal and anti-inflammatories and maintain good hydration. She had her cataract surgery & is doing well. she did not have any active complaints at the time of this office visit. [facility] Medical History Seasonal allergies Hx of cancer of uterus CAD (coronary artery disease) Cataract Left anterior shoulder pain Trigeminal neuralgia Elevated cholesterol Angina pectoris Aortic dilatation Depression Chronic renal insufficiency Sleep apnea Fibromyalgia Osteoarthritis of knee Arthritis Diabetes HTN (hypertension) Asthma Surgical History Hx of right cataract extraction (06/25/24) S/P DEION-BSO (total abdominal hysterectomy and bilateral salpingo-oophorectomy) (~1998) History of carpal tunnel release Hx of cardiac catheterization H/O colonoscopy History of pubovaginal sling Social History Are you a primary hourly caregiver to a significant other at home: No Do you presently have visiting nurse or other home services: No Alcohol intake: former Year quit: 2007 Patient Tobacco Use Status: Former Tobacco user Tobacco use type: Cigarette Review of Systems Const All systems reviewed & are unremarkable except as noted in HPI and below Physical Exam Vital Signs: Last Vital Signs BP 110/70 03/06/25 12:48 BMI result Body Mass Index 28.7 Const General: comfortable and no acute distress Orientation/consciousness: patient oriented x3 HEENT Head: Yes normocephalic Mouth: Normal oral and palatal mucosa present Eyes EOM: EOMs intact bilaterally Neck Neck: Yes supple Resp Auscultation: clear to auscultation bilaterally Cardio Jugular venous distension: no JVD Rate: regular rate GI Palpation (GI): Soft to palpation Auscultation: normal bowel sounds General: Yes no CVA tenderness Back/Spine/Pelvis Back: no CVA tenderness Skin General skin exam: no rashes or lesions noted Neuro General: patient oriented x3 and moves all extremities Extrem General: Yes no pedal edema Results Reviewed Nephrology Results: Sodium 144 mmol/L (135-145) 01/21/25 Potassium 4.2 mmol/L (3.3-5.1) 01/21/25 Chloride 107 mmol/L (96-108) 01/21/25 Carbon Dioxide 28 mmol/L (22-29) 01/21/25 BUN 24 mg/dL (9-16) H 01/21/25 Creatinine 1.00 mg/dL (0.5-1.4) 01/21/25 Calcium 9.7 mg/dL (8.4-10.2) 01/21/25 Assessment & Plan Assessment & Plan (1) Chronic renal insufficiency: Comment: stage 3 Code(s): N18.9 - Chronic kidney disease, unspecified Category: Medical Qualifiers: Chronic kidney disease stage: stage 3 (moderate) Chronic kidney disease stage 3 subtype: stage 3a (GFR 45-59) Qualified Code(s): N18.31 - Chronic kidney disease, stage 3a (2) HTN (hypertension): Code(s): I10 - Essential (primary) hypertension Category: Medical Qualifiers: Hypertension type: primary hypertension Qualified Code(s): I10 - Essential (primary) hypertension Plan Teodora has stage III CKD likely from vascular disease. Her renal functions are stable. Her blood pressure has been at goal. She is tolerating angiotensin receptor tao. Her blood sugar needs to be consistently well controlled. She needs to lose weight. She avoids nonsteroidal inflammatory medications. She hydrates herself well. She will be a candidate for Jardiance, which I plan to initiate at next visit after reviewing labs. I did not make any medication changes today. Answered all questions. Follow-up appointment given Orders: Orders Creatinine 3 Months I10 - Essential (primary) hypertension, N18.31 - Chronic kidney disease, stage 3a Electrolytes 3 Months I10 - Essential (primary) hypertension, N18.31 - Chronic kidney disease, stage 3a Protein Creatinine Ratio, Ur 3 Months I10 - Essential (primary) hypertension, N18.31 - Chronic kidney disease, stage 3a Blood Urea Nitrogen 3 Months I10 - Essential (primary) hypertension, N18.31 - Chronic kidney disease, stage 3a Coding Level of Care Code Est Pt Level 4 (91844) Diagnoses Chronic renal impairment, stage 3a N18.31 Chronic kidney disease stage: stage 3 (moderate) Chronic kidney disease stage 3 subtype: stage 3a (GFR 45-59) Primary hypertension I10 Hypertension type: primary hypertension
[2025-03-06 12:48] VITALS: BP 110/70; BMI 28.7
--- OUTSIDE RECORDS SUMMARY | 2025-03-06 14:44 | XMS_ITS | Encounter Summary ---
Author Organization [facility] Address [address] [facility] 7t [place] [address] Care Team Providers Care Cnc Maintenance Mechanic Name Role Phone Unavailable Primary Care [...]
--- OUTSIDE RECORDS SUMMARY | 2025-03-06 14:44 | XMS_ITS | Clinical Summary ---
Author Organization [facility] Address [address] [facility] [address]t [place] [address] Care Team Providers Care Sand Mixer Machine Name Role Phone Unavailable Primary Care Provider [...] DAY 04/12/2023 Active Lancets (OneTouch Delica Plus [id number]) [facility] [place] BLOOD SUGAR TWICE DAILY 05/03/2023 Active [...] Relevant to Health Maintenance Insurance [facility] - [facility] Member Subscriber Plan / Payer (Ef fective 2022-Present) Name:Teodora Martínez Relation to Subscriber:Self Name:Teodora Martínez Payer ID:Not on file Group ID:[id number] Type:Not on file Address: [address] - [place] [facility]
--- OUTSIDE RECORDS SUMMARY | 2025-03-06 14:44 | XMS_ITS | Encounter Summary ---
Author Organization [facility] Address [address] [facility] 7t [place] [address] Care Team Providers Care Patient Access Name Role Phone Unavailable Primary Care Provider [...]
--- OUTSIDE RECORDS SUMMARY | 2025-03-06 14:44 | XMS_ITS | Clinical Summary ---
Author Organization [facility] Address [address] [place] [phone] Phone Care Team Providers Care Senior Abap Developer Name Role Phone Madeline Chen MD Primary [...] Comments Breast Cancer Screening 1957 Pneumococcal Vaccine: 50+ Ye ars (1 of 2 - PCV) 1976 Colorectal Cancer Screening: Annual FOBT 2006 Colorectal Cancer Screening: Colonoscopy 2006 Colorectal Cancer Screening: Sigmoidoscopy 2006 Diabetes: Hemoglobin A1C 05/12/2022 Diabetes: Ophthalmology Exam 05/12/2022 Diabetes: Pedal Pulse Checked 05/12/2022 Diabetes: Sensory Foot Exam 05/12/2022 Diabetes: Visual Foot Exam 05/12/2022 Influenza Vaccine (Season Ended) 2025 Hepatitis B Vaccine Aged Out No longe r eligible based on patient's age to complete this topic Insurance [facility] Care Teams Senior Abap Developer Relationship Specialty Start Date End Date Madeline Chen MD [address] [place] [address] PCP - General 12/01/20
== END 2025-03-06 13:06 | disposition home or self-care (01) ==
LOC: HO.HKA 12:29
PROVIDERS: PCP Internal Medicine; Visit Provider Internal Medicine Nephrology
DX: N18.31 Chronic kidney disease, stage 3a (principal); I10 Essential (primary) hypertension
CPT/HCPCS: 99214

== ENCOUNTER → 2025-03-06 12:28 | Outpatient (BNVA) | payer OTHER, SELFPAY | PROVIDERS: PCP Internal Medicine; Visit Provider Internal Medicine Nephrology | DX: I12.9 Hypertensive chronic kidney disease with stage 1 through stage 4 chronic kidney disease, or unspecified chronic kidney disease (principal); N18.31 Chronic kidney disease, stage 3a | CPT/HCPCS: 99212 ==

== ENCOUNTER 2025-07-11 12:12 | Outpatient (REF) | payer OTHER, SELFPAY ==
[2025-07-11 13:06] LABS: Hemoglobin A1C 151.7891 umol/L; Total Hemoglobin (HGBA1C) 3016.7364 umol/L
[2025-07-11 13:17] LABS: Blood Urea Nitrogen 13 mg/dL (9-16)
[2025-07-11 13:21] LABS: Alanine Aminotransferase 23 U/L (0-31); Albumin Level 4.4 g/dL (3.5-5.0); Alkaline Phosphatase 95 U/L (39-117); Anion Gap 14 (12-20); Aspartate Amino Transferase 28 U/L (5-31); Blood Urea Nitrogen 13 mg/dL (9-16); Calcium 9.4 mg/dL (8.4-10.2); Carbon Dioxide 26 mmol/L (22-29); Chloride 98 mmol/L (96-108); Estimated Glomerular Filt Rate 53; Potassium 4.0 mmol/L (3.3-5.1); Sodium 134 mmol/L (135-145); Total Protein 7.5 g/dL (6.5-8.0)
[2025-07-11 13:58] LABS: Protein/Creatinine Ratio, Ur 0.12 (<0.2); Total Protein Urine Random 13 mg/dL (<12)
== END 2025-07-11 12:13 | disposition home or self-care (01) ==
LOC: HO.LAB 12:12
PROVIDERS: Absent Provider Internal Medicine; PCP Internal Medicine; Visit Provider Internal Medicine Nephrology
DX: I12.9 Hypertensive chronic kidney disease with stage 1 through stage 4 chronic kidney disease, or unspecified chronic kidney disease (principal); N18.31 Chronic kidney disease, stage 3a
CPT/HCPCS: 36415; 80053; 82570; 83036; 84156; 84520

== ENCOUNTER 2025-07-29 08:38 | Day surgery (SDC) | payer OTHER, SELFPAY ==
--- OUTSIDE RECORDS SUMMARY | 2025-05-23 12:30 | XMS_ITS | Clinical Summary ---
Author Organization [facility] Address [address] [place] [phone] Phone Care Team Providers Care Ore Puncher Name Role Phone Madeline Chen MD Primary [...] patient's age to complete this topic Insurance [facility] Care Teams Ore Puncher Relationship Specialty Start Date End Date Madeline Chen MD [address] [place] [address] PCP - General 12/01/20
--- OUTSIDE RECORDS SUMMARY | 2025-05-23 12:30 | XMS_ITS | Encounter Summary ---
Author Organization [facility] Address [address] [facility] 7t [place] [address] Care Team Providers Care Child Care Associate Name Role Phone Unavailable Primary Care Provider [...]
[2025-07-23 15:29] VITALS: BMI 28.7
[2025-07-24 10:16] VITALS: BMI 28.5
--- NOTE | 2025-07-26 09:40 | HO.ANESPROP2 ---
Documented by User: Wilma Mustafa NP 07/26/25 10:39 HPI - Anesthesia Eval Consult details Narrative: 69 yr old female for left cataract extraction IOL insertion Medically optimized by PCP 07/11/25 visit Cardiology deemed pt low risk for eye surgery on 05/2025 addendum Type 2 DM: A1C 6.5% H/O CAD: medically managed, deemed low risk for eye surgery per 06/04/25 addendum H/O TIA: stable, on ASA, will have updated carotid US 05/2026 RAMIN: unsure of CPAP status [facility] Active Problems Active Problems: All Active Problems (Updated 03/29/25 @ 07:59 by Caty Singletary, STEPHON, PRESCHOOL ASSOCIATE TEACHER-BC) Dysuria (Acute) Tendinitis of left rotator cuff (Acute) Cervical osteoarthritis (Acute) Neck ache (Acute) Ankle pain, left (Acute) Osteoarthritis of lumbar spine (Acute) Cubital tunnel syndrome of both upper extremities (Acute) Carpal tunnel syndrome on both sides (Acute) De Quervain's disease (radial styloid tenosynovitis) (Acute) Multiple joint complaints (Acute) Left anterior shoulder pain (Acute) HTN (hypertension) (Acute) Chronic renal insufficiency (Acute) Fibromyalgia (Acute) Osteoarthritis of knee (Acute) Past Medical History Medical History Seasonal allergies Hx of cancer of uterus CAD (coronary artery disease) Cataract Left anterior shoulder pain Trigeminal neuralgia Elevated cholesterol Angina pectoris Aortic dilatation Depression Chronic renal insufficiency Sleep apnea Fibromyalgia Osteoarthritis of knee Arthritis Diabetes HTN (hypertension) Asthma Family History Family history of problems with anesthesia: No Surgical History Surgical History Hx of right cataract extraction (06/25/24) S/P DEION-BSO (total abdominal hysterectomy and bilateral salpingo-oophorectomy) (~1998) History of carpal tunnel release Hx of cardiac catheterization H/O colonoscopy History of pubovaginal sling History of Problems with Anesthesia: No Social History Social History (Updated 07/24/25 @ 10:14 by Rosa Navarro RN) Household Members: Spouse Housing: Apartment Are you a primary child care cook to a significant other at home: No Do you presently have visiting nurse or other home services: No Alcohol intake: former Year quit: 2007 Patient Tobacco Use Status: Former Tobacco user Tobacco use type: Cigarette Smoked in Last 30 Days: No Use of substances other than those prescribed or required for medical reasons: No Have you been hit, kicked, punched, or otherwise hurt by someone within the past year? If so, by whom?: No Are you DNR?: No Advance Directives: No Advance Directives Information Provided: Yes Advance Directives on File: No Poor oral hygiene: No Meds Allergies Allergy/AdvReac Type Severity Reaction Status Date / Time NILSA Inhibitors AdvReac Intermediate Cough Verified 07/29/25 09:43 metformin AdvReac Abdominal Verified 07/29/25 09:43 Pain, (in higher doses) Home Medications ?Medication ?Instructions ?Recorded ?Confirmed ?Last Taken ?Type acetaminophen 650 mg 650 mg PO Q8H PRN Pain 01/25/22 07/24/25 Unknown History tablet,extended release (Arthritis Pain Relief (acetaminophen) ER) albuterol sulfate 90 mcg/actuation 2 puff inhalation Q6H PRN Wheezing 01/25/22 07/24/25 Unknown History aerosol inhaler (ProAir HFA) aspirin 81 mg tablet,delayed 81 mg PO DAILY 01/25/22 07/24/25 Unknown History release (Adult Low Dose Aspirin) duloxetine 60 mg capsule,delayed 60 mg PO DAILY 01/25/22 07/24/25 Unknown History release fluticasone propionate 110 2 puff inhalation BID 01/25/22 07/24/25 Unknown History mcg/actuation HFA aerosol inhaler (Flovent HFA) gabapentin 300 mg capsule 300 mg PO TID 01/25/22 07/24/25 07/29/25 07:30 History lorazepam 1 mg tablet 1 mg PO BEDTIME 01/25/22 07/24/25 Unknown History metoprolol succinate 200 mg 200 mg PO DAILY 01/25/22 07/24/25 07/29/25 07:30 History tablet,extended release 24 hr folic acid 1 mg tablet 1 mg PO QAM 07/12/22 07/24/25 Unknown History metformin 750 mg tablet,extended 750 mg PO BID 07/12/22 07/24/25 Unknown History release 24 hr losartan 100 1 tab PO QAM 07/11/23 07/24/25 Unknown History mg-hydrochlorothiazide 25 mg tablet rosuvastatin 40 mg tablet 40 mg PO BEDTIME 07/11/23 07/24/25 Unknown History ezetimibe 10 mg tablet 10 mg PO DAILY 10/20/23 07/24/25 Unknown History omeprazole 20 mg capsule,delayed 20 mg PO DAILY 10/20/23 07/24/25 07/29/25 07:30 History release albuterol sulfate 2.5 mg/3 mL 2.5 mg inhalation Q4-6H PRN 04/03/24 07/24/25 Unknown History (0.083 %) solution for nebulization Shortness Of Breath Or Wheezing ibuprofen 600 mg tablet 600 mg PO TID PRN Pain 06/22/24 07/24/25 Unknown History cetirizine 10 mg tablet 10 mg PO DAILY 06/25/24 07/24/25 07/29/25 07:30 History amlodipine 5 mg tablet 10 mg PO DAILY 11/09/24 07/24/25 07/29/25 07:30 History Exam Height,Weight and Vital Signs: Height 5 ft 4 in Weight 75.296 kg Assessment and Plan Final Anesthetic Review Family History of Problems with Anesthesia: No History of Problems with Anesthesia: No Documented by User: Cristel Stewart MD 07/29/25 09:54 [facility] Past Medical History Medical History Seasonal allergies Hx of cancer of uterus CAD (coronary artery disease) Cataract Left anterior shoulder pain Trigeminal neuralgia Elevated cholesterol Angina pectoris Aortic dilatation Depression Chronic renal insufficiency Sleep apnea Fibromyalgia Osteoarthritis of knee Arthritis Diabetes HTN (hypertension) Asthma Surgical History Surgical History Hx of right cataract extraction (06/25/24) S/P DEION-BSO (total abdominal hysterectomy and bilateral salpingo-oophorectomy) (~1998) History of carpal tunnel release Hx of cardiac catheterization H/O colonoscopy History of pubovaginal sling Social History Social History (Updated 07/24/25 @ 10:14 by Rosa Navarro RN) Household Members: Spouse Housing: Apartment Are you a primary child care cook to a significant other at home: No Do you presently have visiting nurse or other home services: No Alcohol intake: former Year quit: 2007 Patient Tobacco Use Status: Former Tobacco user Tobacco use type: Cigarette Smoked in Last 30 Days: No Use of substances other than those prescribed or required for medical reasons: No Have you been hit, kicked, punched, or otherwise hurt by someone within the past year? If so, by whom?: No Are you DNR?: No Advance Directives: No Advance Directives Information Provided: Yes Advance Directives on File: No Poor oral hygiene: No Meds Allergies Allergy/AdvReac Type Severity Reaction Status Date / Time NILSA Inhibitors AdvReac Intermediate Cough Verified 07/29/25 09:43 metformin AdvReac Abdominal Verified 07/29/25 09:43 Pain, (in higher doses) Home Medications ?Medication ?Instructions ?Recorded ?Confirmed ?Last Taken ?Type acetaminophen 650 mg 650 mg PO Q8H PRN Pain 01/25/22 07/24/25 Unknown History tablet,extended release (Arthritis Pain Relief (acetaminophen) ER) albuterol sulfate 90 mcg/actuation 2 puff inhalation Q6H PRN Wheezing 01/25/22 07/24/25 Unknown History aerosol inhaler (ProAir HFA) aspirin 81 mg tablet,delayed 81 mg PO DAILY 01/25/22 07/24/25 Unknown History release (Adult Low Dose Aspirin) duloxetine 60 mg capsule,delayed 60 mg PO DAILY 01/25/22 07/24/25 Unknown History release fluticasone propionate 110 2 puff inhalation BID 01/25/22 07/24/25 Unknown History mcg/actuation HFA aerosol inhaler (Flovent HFA) gabapentin 300 mg capsule 300 mg PO TID 01/25/22 07/24/25 07/29/25 07:30 History lorazepam 1 mg tablet 1 mg PO BEDTIME 01/25/22 07/24/25 Unknown History metoprolol succinate 200 mg 200 mg PO DAILY 01/25/22 07/24/25 07/29/25 07:30 History tablet,extended release 24 hr folic acid 1 mg tablet 1 mg PO QAM 07/12/22 07/24/25 Unknown History metformin 750 mg tablet,extended 750 mg PO BID 07/12/22 07/24/25 Unknown History release 24 hr losartan 100 1 tab PO QAM 07/11/23 07/24/25 Unknown History mg-hydrochlorothiazide 25 mg tablet rosuvastatin 40 mg tablet 40 mg PO BEDTIME 07/11/23 07/24/25 Unknown History ezetimibe 10 mg tablet 10 mg PO DAILY 10/20/23 07/24/25 Unknown History omeprazole 20 mg capsule,delayed 20 mg PO DAILY 10/20/23 07/24/25 07/29/25 07:30 History release albuterol sulfate 2.5 mg/3 mL 2.5 mg inhalation Q4-6H PRN 04/03/24 07/24/25 Unknown History (0.083 %) solution for nebulization Shortness Of Breath Or Wheezing ibuprofen 600 mg tablet 600 mg PO TID PRN Pain 06/22/24 07/24/25 Unknown History cetirizine 10 mg tablet 10 mg PO DAILY 06/25/24 07/24/25 07/29/25 07:30 History amlodipine 5 mg tablet 10 mg PO DAILY 11/09/24 07/24/25 07/29/25 07:30 History Exam Airway Mallampati Class: II (poor dentition denies anything loose) TM Dist: >3cm Neck ROM: Full Heart: rrr Lungs: cta Assessment and Plan Assessment Anesthesia Assessment: Anesthesia Plan Discussed and Chart Reviewed Final Anesthetic Review NPO: Yes ASA Class: III Final Preanesthetic Review: No Changes in Pt Med Stat, Meds/Allgs Chart Reviewed and Consent Obtained/Reviewed Patient Risk: Intermediate Procedure Risk: Low Anesthetic Plan Anesthetic Plan: MAC: Disposition: Standard PACU
[2025-07-29 09:20] VITALS: BP 95/59; PULSE 59; RESP 15; TEMP 36.5; O2SAT 97
[2025-07-29] MEDS: Tetracaine HCl/PF 0.5% Oph Sol 4 ML DROPS 1 DROP EYE-LEFT (09:24)
[2025-07-29] MEDS: Cyclopentolate 1 % Ophth Sol 2 ML DRPBTL 1 DROP EYE-LEFT ×3 (09:26→09:37)
[2025-07-29] MEDS: Tropicamide 1 % Ophth Sol 3 ML BTL 1 DROP EYE-LEFT ×3 (09:27→09:39)
[2025-07-29] MEDS: Ketorolac Tromethamine 0.5% Op 5 ML DROPS 1 DROP EYE-LEFT ×3 (09:29→09:40)
[2025-07-29] MEDS: Lactated Ringers 500 ML 50 ML IV (09:30)
[2025-07-29] MEDS: Phenylephrine HCL 2.5% Oph SoL 2 ML BOTTLE 1 DROP EYE-LEFT ×3 (09:30→09:41)
[2025-07-29 09:39] LABS: Glucose, Whole Blood 113 mg/dL (60-115)
--- NOTE | 2025-07-29 10:19 | MHC.SHP ---
Pre-Procedural Eval Section A - 24 Hr Update-Section A only Date of Service: 07/29/25 The patient is an INPATIENT: No Changes since office visit: No Cold of Flu in the past 2 weeks, No New Medical Problems, No Changes in Medication and No Patient answered all questions The patient has been examined within 24 hours of the surgical procedure. The History & Physical has been completed within 30 days and I have reviewed it.: Yes Section B - Complete if H&P > 30 days Chief Complaint: Age-related nuclear cataract, left eye Allergies: Allergies Allergy/AdvReac Type Severity Reaction Status Date / Time NILSA Inhibitors AdvReac Intermediate Cough Verified 07/29/25 09:43 metformin AdvReac Abdominal Verified 07/29/25 09:43 Pain, (in higher doses) Plan Diagnosis/Plan: Unchanged I have reviewed the history and physical and performed a pertinent physical examination on my patient. No changes have occurred unless specified. Time Spent With Patient Time: Total time managing care of this patient today ____ minutes.
--- NOTE | 2025-07-29 10:20 | HO.PNOPHT ---
Ophthalmology Procedure Procedure Date of Service: 07/29/25 Ophthalmology Viscoelastic: Healon Duet Dual Pack Pro Ophthalmology Lenses: IOL Acrysof MP - [id number] (21) Procedure Notes: PREOPERATIVE DIAGNOSIS: Decreased visual acuity left eye secondary to cataract POSTOPERATIVE DIAGNOSIS: Same PROCEDURE: Left cataract extraction with intraocular lens insertion SURGEON: Lalit Lamb M.D. ANESTHESIA: Topical/MAC ESTIMATED BLOOD LOSS: None COMPLICATIONS: None After obtaining informed consent, the patient was brought to the operation room suite and placed in the supine position. After adequate sedation per anesthesia, topical drops of Tetracaine were given to the left eye. The eye was then prepped and draped in the usual sterile fashion. The operating room microscope was then positioned over the operative eye and a lid speculum placed. A paracentesis was created. Viscoelastic was then instilled into the anterior chamber. A three plane incision was then created temporally, utilizing a 2.85 mm keratome. Capsulotomy forceps were then utilized to create a circular tear capsulotomy. Hydrodissection and hydrodelineation were carried out until adequate mobilization of the nucleus occurred. Phacoemulsification was then utilized to remove the dense central nucleus followed by removal of the cortical material utilizing the automated aspiration irrigation unit. Viscoat elastic was instilled into the posterior capsular bag followed by placement of a posterior chamber intraocular lens without difficulty. The residual Viscoat elastic was then removed utilizing the automated IA machine. The wound was check and found to be watertight. The patient tolerated the procedure well and the lid speculum was removed. Intracameral injection of Vigamox 0.1 mL followed by a subtenon injection of Kenalog-40 0.2 mL were administered. The patient will be seen in the a.m.
[2025-07-29 10:43] VITALS: BP 119/69; PULSE 60; RESP 18; TEMP 36.4; O2SAT 100
== END 2025-07-29 11:02 | disposition home or self-care (01) ==
PROVIDERS: PCP Internal Medicine; Visit Provider Ophthalmology
PROC: (CPT 66985; principal; 2025-07-29 11:00)
DX: H25.12 Age-related nuclear cataract, left eye (principal); H54.7 Unspecified visual loss; H18.413 Arcus senilis, bilateral; Z96.1 Presence of intraocular lens; Z83.511 Family history of glaucoma; I12.9 Hypertensive chronic kidney disease with stage 1 through stage 4 chronic kidney disease, or unspecified chronic kidney disease; E11.22 Type 2 diabetes mellitus with diabetic chronic kidney disease; N18.30 Chronic kidney disease, stage 3 unspecified; J45.909 Unspecified asthma, uncomplicated; M19.90 Unspecified osteoarthritis, unspecified site; F41.9 Anxiety disorder, unspecified; M54.9 Dorsalgia, unspecified; Z79.82 Long term (current) use of aspirin; Z79.899 Other long term (current) drug therapy; Z79.84 Long term (current) use of oral hypoglycemic drugs; Z88.8 Allergy status to other drugs, medicaments and biological substances; Z90.710 Acquired absence of both cervix and uterus; Z98.890 Other specified postprocedural states; Z87.891 Personal history of nicotine dependence
CPT/HCPCS: 66984; 82947; J2250; J3301; V2630

== ENCOUNTER 2025-09-19 12:38 | Outpatient (AMB) | payer OTHER, SELFPAY ==
--- NOTE | 2025-09-19 12:48 | A.OFFVIS_ITS ---
Vital Signs 09/19/25 13:03 Height 5 ft 4 in Weight 167 lb 1.766 oz BMI 28.7 BP 115/80 Blood Pressure Location Lt brachial Position Sitting Pulse 67 Pulse Source Pulse Oximeter Pulse Oximetry (%) 98 Oxygen Delivery Method Room Air Intake Visit Reasons: OA Intake Note: Patient presents for OA follow up. Digital Advertising Analyst Required: Yes Digital Advertising Analyst Language: Welder And Fitter Services: Digital Advertising Analyst Offered & Declined Digital Advertising Analyst Name: Sejal Santos Information Interpreted: non-clinical & clinical Hadoop Analyst: Hadoop Analyst Present (Sejal Santos) Accompanied by: Daughter Allergies NILSA Inhibitors Adverse Reaction (Intermediate, Verified 09/19/25 12:58) Cough metformin Adverse Reaction (Verified 09/19/25 12:58) Abdominal Pain, (in higher doses) Medication List - Last Reconciled 09/19/25 by Sakshi Lala MD acetaminophen ER (Arthritis Pain Relief (acetaminophen) ER) 650 mg PO Q8H PRN albuterol sulfate 2.5 mg inhalation Q4-6H PRN albuterol sulfate 90 mcg/actuation (ProAir HFA) 2 puffs inhalation Q6H PRN amlodipine 10 mg PO DAILY aspirin (Adult Low Dose Aspirin) 81 mg PO DAILY cetirizine 10 mg PO DAILY duloxetine 60 mg PO DAILY ezetimibe 10 mg PO DAILY fluticasone propionate 110 mcg/actuation (Flovent HFA) 2 puffs inhalation BID folic acid 1 mg PO QAM gabapentin 300 mg PO TID ibuprofen 600 mg PO TID PRN lorazepam 1 mg PO BEDTIME losartan-hydrochlorothiazide 100-25 mg 1 tab PO QAM metformin ER 750 mg PO BID metoprolol succinate ER 200 mg PO DAILY omeprazole 20 mg PO DAILY rosuvastatin 40 mg PO BEDTIME HPI Comments Details: Patient is a 70-year-old female hypertension, hyperlipidemia, diabetes, GERD, polyarticular osteoarthritis and fibromyalgia here today for follow up Interval History: Patient last seen 02/14/24 with Sia Bowen - Not on DMARDs - receive left AC joint injection - no concern for inflammatory arthritis at that time Today - No DMARDs - Complaining of lower back and hip pain as well as neck pain Rheumatologic History: Initial History: The patient presents for evaluation of joint pains. She was last seen in Rheumatology back in July of 2019. Notes indicate they thought she had apparently an inflammatory arthritis and she was put on hydroxychloroquine. She does not recall taking hydroxychloroquine or having an eye exam to monitor its use. There were some refills for a while of the hydroxychloroquine but no subsequent clinical evaluation. Mostly she is complaining of pain in the left wrist and thumb area. This has started up back in September. No injury was involved. In November she did receive what sounds like an injection in that area with some benefit for a couple of weeks. She also has some pain in the other hand mostly around the right 3rd MCP and in both knees. The chart also indicates some exposure in the past NSAIDs as well as methotrexate although it is not clear how long she took either drug. She does have some ibuprofen at home and takes Cymbalta gabapentin, presumably for fibromyalgia and depression. There are no recent x-rays or lab work available. Current Rheumatology Medication(s): [facility] Medical History Seasonal allergies Hx of cancer of uterus CAD (coronary artery disease) Cataract Left anterior shoulder pain Trigeminal neuralgia Elevated cholesterol Angina pectoris Aortic dilatation Depression Chronic renal insufficiency Sleep apnea Fibromyalgia Osteoarthritis of knee Arthritis Diabetes HTN (hypertension) Asthma Surgical History Hx of right cataract extraction (06/25/24) S/P DEION-BSO (total abdominal hysterectomy and bilateral salpingo-oophorectomy) (~1998) History of carpal tunnel release Hx of cardiac catheterization H/O colonoscopy History of pubovaginal sling Family History (Updated 09/19/25 @ 13:02 by NATALIYA Brandon) Mother History of heart attack Diabetes Arthritis Father Cancer Social History Household Members: Spouse and Family Housing: Apartment Are you a primary regular senior care provider to a significant other at home: No Do you presently have visiting nurse or other home services: No 75 years or older and lives alone: No Alcohol intake: former Year quit: 2007 Patient Tobacco Use Status: Former Tobacco user Tobacco use type: Cigarette Review of Systems Narrative Review of Systems Constitutional: Denies fever, chills, weight loss ENT: Denies vision changes, eye pain or eye redness, dental caries, dry mouth GI: Denies nausea, vomiting, diarrhea, abdominal pain, change in BM Pulm: Denies SOB, CAMARGO, hemoptysis, wheezing Cards: Denies chest pain, palpitations Skin: Denies Raynaud's, rash, nail changes, photosensitivity, CHIEF OF STAFF DOCTOR: Denies headaches, weakness, paresthesias, recurrent falls MSK: as per HPI All other systems reviewed and are unremarkable except noted above Physical Exam Exam Exam: Vital signs reviewed Physical Examination CONSTITUITIONAL Patient alert and cooperative. Well appearing and in no apparent painful distress MSK Hands * Right Hand: Able to make a fist. No swelling or tenderness to palpation of the MCPs, PIPs or DIPs. * Left Hand: Able to make a fist. No swelling or tenderness to palpation of the MCPs, PIPs or DIPs. * Herbedens nodes noted bilaterally Wrists * Right Wrist: Full ROM to flexion and extension. No swelling or TTP * Left Wrist: Full ROM to flexion and extension. No swelling or TTP Elbows * Right Elbow: Full ROM. No swelling or TTP. No TTP of the medial epicondyle. No TTP of the lateral epicondyle * Left Elbow: Full ROM. No swelling or TTP. No TTP of the medial epicondyle. No TTP of the lateral epicondyle Shoulders * Right shoulder: Full ROM. No swelling noted. No TTP of the AC joint. No TTP of the subacromial bursa. No TTP of the posterior shoulder * Left shoulder: Full ROM. No swelling noted. No TTP of the AC joint. No TTP of the subacromial bursa. No TTP of the posterior shoulder Knees * Right knee: Full ROM. No swelling noted. No TTP of the knee joint line. No TTP of pes anserine bursa * Left knee: Full ROM. No swelling noted. No TTP of the knee joint line. No TTP of pes anserine bursa. * Crepitations felt bilaterally Ankles * Right ankle: Good ankle dorsiflexion and plantar flexion. No swelling. No TTP of the ankle joint * Left ankle: Good ankle dorsiflexion and plantar flexion. No swelling. No TTP of the ankle joint Feet * Right foot: Negative squeeze test * Left foot: Negative squeeze test Tender points? * No tenderness to palpation of the bilateral trapezius, supraspinatus, anterior costochondral junctions, bilateral suboccipital muscle insertions SKIN No rashes Vital Signs: Last Vital Signs Pulse 67 10/30/25 13:03 BP 115/80 09/19/25 13:03 Pulse Ox 98 09/19/25 13:03 Oxygen Delivery Method Room Air 09/19/25 13:03 BMI result Body Mass Index 28.7 Results Reviewed Results Reviewed: Laboratory Tests 07/11/25 12:33 Sodium 134 L Potassium 4.0 Chloride 98 Carbon Dioxide 26 BUN 13 Creatinine 1.04 AST 28 ALT 23 Assessment & Plan Assessment & Plan (1) Polyarticular osteoarthritis: Code(s): M15.9 - Polyosteoarthritis, unspecified Plan: #Polyarticular OA Patient is a 70 y.o. female with polyarticular OA Today complaining of back pain, hip pain and neck pain Given her history of OA it is likely that she has OA to these joints Will check XRs to confirm If evidence of degenerative disease of the spine will send to pain management for therapeutic options Plan - XR hips, L spine, and C spine - RTC 6 months Plan I spent 30 minutes reviewing the record and labs, taking a history, examining the patient, discussing the treatment plan, ordering diagnostic work up and documenting in the medical record Orders: Orders XR sacroiliac joint min 3V Today M15.9 - Polyosteoarthritis, unspecified XR hip RT min 2V Today M15.9 - Polyosteoarthritis, unspecified XR lumbar spine 4V min Today M15.9 - Polyosteoarthritis, unspecified XR hip LT min 2V Today M15.9 - Polyosteoarthritis, unspecified XR cervical spine w flex/ext Today M54.2 - Cervicalgia Coding Level of Care Code Est Pt Level 4 (38222) Diagnoses Polyarticular osteoarthritis M15.9
[2025-09-19 13:03] VITALS: BP 115/80; PULSE 67; O2SAT 98; BMI 28.7
--- OUTSIDE RECORDS SUMMARY | 2025-09-19 15:29 | XMS_ITS | Encounter Summary ---
Author Organization [facility] [employer] [facility] Address [address] [place] [address] Care Team Providers Care Major Appliance Assembly Supervisor Name Role Phone Unavailable Primary Care Provider [...]
--- OUTSIDE RECORDS SUMMARY | 2025-09-19 15:29 | XMS_ITS | Encounter Summary ---
Author Organization [facility] [employer] [facility] Address [address] [place] [address] Care Team Providers Care Product Mgmt Dev Manager Name Role Phone Unavailable Primary Care Provider Unavailabl e Encounter Details Date Type Department Care Team (Latest Contact Info) Description 07/02/2019 Abstract C CONVERSIONS Dental, Provider, DDS Social History Tobacco [...]
--- OUTSIDE RECORDS SUMMARY | 2025-09-19 15:29 | XMS_ITS | Clinical Summary ---
Author Organization [employer] Address [address] [place] [address] Care Team Providers Care Plasterer Helper Name Role Phone Unavailable Primary Care Provider [...] DAY 04/12/2023 Active Lancets (OneTouch Delica Plus [id number]) [facility] [place] BLOOD SUGAR TWICE DAILY 05/03/2023 Active [...] Encounters Date Type Department Care Team Description 09/02/2025 Travel from Last 3 Months Immunizations Immunization Administration Dates Next Due Influenza High-dose Quadriva lent Preservative Free 09/08/2023 Influenza Injectable Quadriv alant Preservative Free IIV4 MDCK 10/06/2022,09/11/2021,08/05/2020 Influenza, High Dose Seasona l, Preservative Free 09/09/2025 Influenza, seasonal, injecta ble, preservative free 08/17/2024,09/23/2021 [...] or older Completed 11/28/2023 COVID-19 Vaccine Completed 09/09/2025, , 09/13/2023, Additional history exists Influenza Vaccine Completed 09/09/2025, , 09/08/2023, Additional history exists HIB Vaccines Aged Out [...] patient's age to complete this topic Meningococcal B Vaccine Aged Out No l onger eligible based on patient's age to complete [...] Relevant to Health Maintenance Insurance DENTAL - [facility] GROUP HOME OPTIONS (O D-SNP) DENTAL [facility]
== END 2025-09-19 13:33 | disposition home or self-care (01) ==
LOC: HO.RHES 12:38
PROVIDERS: PCP Internal Medicine; Visit Provider Student in an Organized Health Care Education/Training Program
DX: M15.9 Polyosteoarthritis, unspecified (principal)
CPT/HCPCS: 99214

== ENCOUNTER → 2025-09-19 12:38 | Outpatient (BNVA) | payer OTHER, SELFPAY | PROVIDERS: PCP Internal Medicine; Visit Provider Student in an Organized Health Care Education/Training Program | DX: M54.2 Cervicalgia (principal); M15.9 Polyosteoarthritis, unspecified; M79.7 Fibromyalgia | CPT/HCPCS: 99212 ==

== ENCOUNTER 2025-10-08 08:09 | Outpatient (REF) | payer OTHER, SELFPAY ==
--- OUTSIDE RECORDS SUMMARY | 2025-10-09 15:42 | XMS_ITS | Clinical Summary ---
Author Organization [employer] Address [address] [place] [address] Care Team Providers Care Can Maker Name Role Phone Unavailable Primary Care Provider [...] DAY 04/12/2023 Active Lancets (OneTouch Delica Plus [id number]) [facility] [place] TWICE DAILY 05/03/2023 Active [...] Dental X-Ray: Full Mouth 05/08/2025 05/07/2022, 08/21 COVID-19 Vaccine ( season) 2026 09/09/2025, 08/17/2024, 09/13/2023, Additional history exists DTaP/Tdap/Td Vaccines (2 - Td or Tdap) 01/20/2032 01/19/2022 Zoster Vaccines Completed 07/06/2019, 02/08/2019 Pneumococcal Vaccine: 50+ Years Completed 11/28/2023, 09/25/2021 RSV Patients and Patients Aged 60 years or older Completed 11/28/2023 Influenza Vaccine Completed 09/09/2025, , 09/08/2023, Additional [...] Relevant to Health Maintenance Insurance DENTAL - [facility] SKILLED NURSING OPTIONS (O D-SNP) DENTAL - [facility]
--- OUTSIDE RECORDS SUMMARY | 2025-10-09 15:42 | XMS_ITS | Encounter Summary ---
Author Organization [facility] [employer] [facility] Address [address] [place] [address] Care Team Providers Care Liner Reroll Tender Name Role Phone Unavailable Primary Care Provider [...]
--- OUTSIDE RECORDS SUMMARY | 2025-10-09 15:42 | XMS_ITS | Clinical Summary ---
Author Organization [facility] Address [address] [place] [id number] Phone Care Team Providers Care Furrier Apprentice Name Role Phone Madeline Chen MD Primary Care Provider [phone] Allergies Active Allergy Reactions Criticality Noted Date [...] Years Used Date Smoking Tobacco: Former Cigarettes 0 Q uit: 11/21/2007 Smokeless Tobacco: Never Tobacco [...] Visual Foot Exam 05/12/2022 Influenza Vaccine (#1) 2025 Hepatitis B Vaccine Aged Out No longe r eligible based on patient's age to complete this topic Insurance [facility] Care Teams Furrier Apprentice Relationship Specialty Start Date End Date Madeline Chen MD [address] [place] [address] [facility] - General 12/01/20
--- OUTSIDE RECORDS SUMMARY | 2025-10-09 15:42 | XMS_ITS | Encounter Summary ---
Author Organization [facility] Address [address] [place] [address] Care Team Providers Care Veneer Drier Tailer Name Role Phone Unavailable Primary Care Provider [...]
== END 2025-10-08 08:10 | disposition home or self-care (01) ==
LOC: HO.HOSX 08:09
PROVIDERS: Visit Provider Physician Assistant
DX: Z13.89 Encounter for screening for other disorder (principal)